=== PATIENT | male | born 1930 | race Caucasian/White ===

== ENCOUNTER 2017-09-10 07:08 | Inpatient (IN) | payer MEDICARE ==
[2017-09-10] MEDS ORDERED: Senna TAB PO PRN (12:06)
[2017-09-10] MEDS ORDERED: Acetaminophen TAB* 325 MG PO PRN (12:06)
[2017-09-10] MEDS ORDERED: Magnesium Hydroxide LIQ* 30 ML UDC PO PRN (12:06)
[2017-09-10] MEDS: Atorvastatin* 40 MG TAB PO SCH (16:44)
[2017-09-10] MEDS: CMC Dabigatran CAP(NF) 150 MG CAP PO SCH (20:45)
[2017-09-10] MEDS: Docusate CAP* 100 MG PO SCH (20:45)
--- NOTE | 2017-09-10 23:14 | HP ---
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 HISTORY OF PRESENT ILLNESS: Deven Koehler is an 87-year-old male. He has a medical history significant for coronary artery disease. He had a coronary artery bypass graft done in 1996 and then had several stents placed in 2015. He has known atrial fibrillation and was on Pradaxa prior to admission. 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 The patient had a watchman device placed on 07/29/17 because of difficulty maintaining his INR. He also had a left atrial appendage. The patient presented acutely to the emergency room at [facility] on 09/05/17. He had difficulty speaking. The patient was evaluated in the emergency room. The patient had an MRI/MRA ordered. It showed patchy foci of acute ischemia primarily confined to the white matter in the left posterior middle cerebral artery distribution superimposed on extensive chronic white matter disease. His MRA of the brain did not show any abnormalities. The patient had duplex imaging of the bilateral carotid arteries done. The right carotid showed 0% to 49% stenosis. The left carotid artery indicated 50% to 69% stenosis with moderate calcific plaque with shadowing visualized at the bulb and proximal internal carotid region. He was felt to have high-grade stenosis at the left internal carotid artery at the bulb. The patient had been on Effient prior to admission. The Effient was stopped in favor of aspirin. He was started on Lipitor 40 mg daily. He had been intolerant of Zocor in the past. He was seen by Vascular Surgery, who evaluated the patient and are planning a surgical intervention 2 to 3 weeks after discharge. He was also in atrial fibrillation while at [facility]. He was maintained on Pradaxa. Because Effient was contraindicated as mentioned, he was switched to a baby aspirin. He was not on beta blockers due to a history of bradycardia. His CLL was under observation, but given his lack of anemia or thrombocytopenia it was just observed. The patient was felt to have physical therapy, occupational therapy and speech therapy needs. He is now being admitted for inpatient rehab so that he might return to independent living. PAST MEDICAL HISTORY: As noted above. 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 He underwent Rituxan therapy for that. He has had malignant melanoma of the skin in the left upper chin. He has also had squamous cell skin cancer as well. The patient has a known cardiomyopathy. MEDICATIONS: Chronic medications include: 1. Pradaxa. 2. Baby aspirin. 3. He is on Lipitor. 4. Diovan. ALLERGIES: The patient got a rash from PLAVIX. He did not tolerate ZOCOR in the past and got significant weakness. He is on Lipitor at the present time. He also got a cough from CECILLE INHIBITORS. SOCIAL HISTORY: He is a nonsmoker, nondrinker. He lives with his . They live in a [facility] in [place], [place]. REVIEW OF SYSTEMS: The patient reports no current shortness of breath or chest pain. PHYSICAL EXAMINATION VITAL SIGNS: The patient's temperature is 98.3, blood pressure is 120/61, pulse is 70 and regular, respirations 16. HEENT: Extraocular movements are intact. Tongue is midline. NECK: Supple. LUNGS: Sounds clear to auscultation bilaterally. HEART: Sounds were irregular. S1 and S2 were audible. ABDOMEN: Soft and nontender. EXTREMITIES: Showed largely normal muscle bulk and tone. NEUROLOGIC: The patient had a significant expressive aphasia. Muscle strength was about 4+/5 on the right, on right leg was close to normal, his left side was 5/5. FUNCTIONAL EXAM: He transfers with contact guard assistance. 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 PLAN: Our plan is to integrate him into a comprehensive and therapeutic rehab program. We will have the following goals: 1. Physical Therapy will work with the patient, they are going to work on functional transfer training and ambulation training with a walker. 2. Occupational Therapy will see the patient, work on his activities of daily living including toileting and toilet transfers. 3. Speech Therapy will work with the patient, work on his expressive aphasia, and help him communicate his basic wants and needs. 4. He is on Pradaxa for atrial fibrillation, this will serve for DVT prophylaxis as well. 5. For atrial fibrillation, continue Pradaxa. As mentioned, he could not tolerate beta graeme because of bradycardia. 6. We will continue Lipitor for now, although he had trouble with this in the past. We will watch him closely. 7. Adequate analgesia. 8. SSRIs including Prozac is indicated. 9. business services intern will be closely involved to make sure that any services and equipment that the patient requires are in place prior to discharge. 10. Family training as appropriate. 11. Advanced directives: The patient is a full code. 12. Home with appropriate services. ESTIMATED LENGTH OF STAY: Ten days. [id number]/CPS #: [id number] JERAD
[2017-09-11 06:53] LABS: Hematocrit 34 % (42-52); Hemoglobin 11.7 g/dl (14.0-18.0); Mean Corpuscular HGB Conc 34 g/dl (31-36); Mean Corpuscular Hemoglobin 30 pg (27-31); Mean Corpuscular Volume 87 fL (80-94); Mean Platelet Volume 7.5 um3 (7.4-10.4); Platelet Count 124 10^3/ul (150-450); Red Cell Distribution Width 15 % (10.5-15)
[2017-09-11 07:00] LABS: ABS Basophils 0.1 10^3/ul (0-0.2); ABS Eosinophils 0.5 10^3/ul (0-0.6); ABS Lymphocytes 9.9 10^3/ul (1.0-4.8); ABS Monocytes 0.6 10^3/ul (0-0.8); ABS Neutrophils 2.9 10^3/ul (1.5-7.7)
[2017-09-11 07:23] LABS: ABS Nucleated RBC 0 10^3/ul; Eosinophil % 3.6 % (0-6); Lymphocyte % 70.7 % (25-47); Nucleated Red Blood Cells % 0.1
[2017-09-11] MEDS: Docusate CAP* 100 MG PO SCH ×2 (09:09→20:29)
[2017-09-11] MEDS: Aspirin 81 mg CHEW TAB* 81 MG TAB.CHEW PO SCH (09:10)
[2017-09-11] MEDS: Valsartan TAB* 40 MG PO SCH (09:10)
[2017-09-11] MEDS: CMC:Dabigatran CAP(NF) 150 MG CAP PO SCH ×2 (09:21→20:28)
[2017-09-11] MEDS: Atorvastatin* 40 MG TAB PO SCH (17:33)
--- NOTE | 2017-09-11 23:13 | PN ---
Progress Note Date of Service: 09/11/17 Note: ROBBIE GRAHAM was visited. Therapy notes read and reviewed. Remains aphasic, expressive>receptive. Was seen ambulating with PT, doing fairly well Current Medications: Active Medications Generic Name Dose Route Start Last Admin Trade Name Freq PRN Reason Stop Dose Admin Acetaminophen 650 mg 09/10/17 12:06 Tylenol Tab* PO Q6H PRN FEVER/PAIN Aspirin 81 mg 09/11/17 09:00 09/11/17 09:10 Aspirin 81 Mg Chew Tab* PO 81 mg DAILY TAYLOR Administration Atorvastatin Calcium 40 mg 09/10/17 17:00 09/11/17 17:33 Lipitor* PO 40 mg 1700 TAYLOR Administration Dabigatran 150 mg 09/11/17 09:00 09/11/17 20:28 Pradaxa Cap(Nf) PO 150 mg BID TAYLOR Administration Docusate Sodium 100 mg 09/10/17 21:00 09/11/17 20:29 Colace Cap* PO 100 mg BID TAYLOR Administration Magnesium Hydroxide 30 ml 09/10/17 12:06 Milk Of Magnesia Liq* PO Q6H PRN CONSTIPATION Senna 2 tab 09/10/17 12:06 Senokot Tab* PO BEDTIME PRN CONSTIPATION Valsartan 40 mg 09/11/17 09:00 09/11/17 09:10 Diovan Tab* PO 40 mg DAILY TAYLOR Administration Vital Signs: Vital Signs Temp Pulse Resp BP Pulse Ox 97.4 F 55 18 106/48 90 09/11/17 15:35 09/11/17 15:35 09/11/17 19:27 09/11/17 15:35 09/11/17 19:27 Lab Results: Laboratory Results - last 24 hr 09/11/17 09/11/17 06:39 06:39 WBC 14.0 H RBC 3.90 L Hgb 11.7 L Hct 34 L MCV 87 MCH 30 MCHC 34 RDW 15 Plt Count 124 L MPV 7.5 Neut % (Auto) 21.1 L Lymph % (Auto) 70.7 H Bullitt % (Auto) 4.1 Eos % (Auto) 3.6 Baso % (Auto) 0.5 Absolute Neuts (auto) 2.9 Absolute Lymphs (auto) 9.9 H Absolute Monos (auto) 0.6 Absolute Eos (auto) 0.5 Absolute Basos (auto) 0.1 Absolute Nucleated RBC 0 Nucleated RBC % 0.1 Hem Pathologist Commnt Sodium 132 L Potassium 4.7 Chloride 101 Carbon Dioxide 29 Anion Gap 2 BUN 23 Creatinine 0.92 Est GFR ( Amer) 100.3 Est GFR (Non-Af Amer) 78.0 BUN/Creatinine Ratio 25.0 H Glucose 96 Calcium 8.9 Total Bilirubin 0.70 AST 19 ALT 13 Alkaline Phosphatase 64 Total Protein 5.4 L Albumin 3.8 Globulin 1.6 L Albumin/Globulin Ratio 2.4 Exam: HEENT: Face looks symmetric, some right facial weakness LUNGS: clear HEART: irreg rhythm ABDOMEN: Soft NEUROLOGIC: aphasia. Right arm 4+/5 Assessment/Plan: 1. Left CVA with aphasia and right sided weakness: PT/OT/TILE MOLDER HAND. 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 Consider Prozac. May need CEA 2. CLL: Monitor 3. Atrial Fibrillation: Pradaxa. rate controlled 4. DVT Prophylaxis: on Pradaxa 5. CAD: Lipitor/ASA/Pradaxa 6. Cardiomyopathy: can't tolerate beta blockers or CECILLE inhibitors. Continue Yuliana 09/11/17 23:10
[2017-09-12] MEDS: CMC Dabigatran CAP(NF) 150 MG CAP PO SCH (00:35)
[2017-09-12] MEDS: CMC:Dabigatran CAP(NF) 150 MG CAP PO SCH ×2 (08:50→21:16)
[2017-09-12] MEDS: Docusate CAP* 100 MG PO SCH ×2 (08:50→21:16)
[2017-09-12] MEDS: Aspirin 81 mg CHEW TAB* 81 MG TAB.CHEW PO SCH (08:50)
[2017-09-12] MEDS: Valsartan TAB* 40 MG PO SCH (08:52)
--- NOTE | 2017-09-12 16:23 | PN ---
Progress Note Date of Service: 09/12/17 Note: ROBBIE GRAHAM was visited. Therapy notes read and reviewed. Will start Prozac for aphasia. He seems pretty good otherwise. Still with paraphasic errors Current Medications: Active Medications Generic Name Dose Route Start Last Admin Trade Name Freq PRN Reason Stop Dose Admin Acetaminophen 650 mg 09/10/17 12:06 Tylenol Tab* PO Q6H PRN FEVER/PAIN Aspirin 81 mg 09/11/17 09:00 09/12/17 08:50 Aspirin 81 Mg Chew Tab* PO 81 mg DAILY TAYLOR Administration Atorvastatin Calcium 40 mg 09/10/17 17:00 09/11/17 17:33 Lipitor* PO 40 mg 1700 TAYLOR Administration Dabigatran 150 mg 09/11/17 09:00 09/12/17 08:50 Pradaxa Cap(Nf) PO 150 mg BID TAYLOR Administration Docusate Sodium 100 mg 09/10/17 21:00 09/12/17 08:50 Colace Cap* PO 100 mg BID TAYLOR Administration Fluoxetine HCl 10 mg 09/13/17 09:00 Prozac Cap* PO DAILY [facility] Magnesium Hydroxide 30 ml 09/10/17 12:06 Milk Of Magnesia Liq* PO Q6H PRN CONSTIPATION Senna 2 tab 09/10/17 12:06 Senokot Tab* PO BEDTIME PRN CONSTIPATION Valsartan 40 mg 09/11/17 09:00 09/12/17 08:52 Diovan Tab* PO 40 mg DAILY TAYLOR Administration Vital Signs: Vital Signs Temp Pulse Resp BP Pulse Ox 98.3 F 45 16 112/47 99 09/12/17 05:36 09/12/17 05:36 09/12/17 05:36 09/12/17 05:36 09/12/17 05:36 Exam: HEENT: Face asymmetric, some right facial weakness LUNGS: clear HEART: irreg rhythm ABDOMEN: Soft NEUROLOGIC: aphasia. Right arm 4+/5 Assessment/Plan: 1. Left CVA with aphasia and right sided weakness: PT/OT/RETAIL GROCER. 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 Start Prozac. May need CEA 2. CLL: Monitor 3. Atrial Fibrillation: Pradaxa. rate controlled 4. DVT Prophylaxis: on Pradaxa 5. CAD: Lipitor/ASA/Pradaxa 6. Cardiomyopathy: can't tolerate beta blockers or CECILLE inhibitors. Continue Diovan 09/12/17 16:23
[2017-09-12] MEDS: Atorvastatin* 40 MG TAB PO SCH (16:59)
[2017-09-13] MEDS: CMC:Dabigatran CAP(NF) 150 MG CAP PO SCH ×2 (09:47→21:31)
[2017-09-13] MEDS: Docusate CAP* 100 MG PO SCH ×2 (09:47→19:12)
[2017-09-13] MEDS: Aspirin 81 mg CHEW TAB* 81 MG TAB.CHEW PO SCH (09:47)
[2017-09-13] MEDS: FLUoxetine CAP* 10 MG PO SCH (09:47)
[2017-09-13] MEDS: Valsartan TAB* 40 MG PO SCH (09:47)
--- NOTE | 2017-09-13 12:45 | PMRUTEAM ---
PMRU: Team Meeting Current Status: Nursing: Current Status Skin Deviations [None] Other Skin Deviation Description [ none None] Physical Therapy: Current Status Bed Mobility Assistance Independent Transfer Moblility Assistance Supervision,Contact Guard Assist Transfer/Bed Mobility None Recommended Devices Ambulation Assistance Supervision,Contact Guard Assist Ambulation Assistive Devices None Number of Feet Patient 500' Ambulated Stairs Assistance Supervision,Contact Guard Assist Stairs Recommended Devices Two Rails Number of Stairs 20 step over step up and step at a time down. Occupational Therapy: Current Status Upper Body Dressing Supervision Lower Body Dressing Min Assist Bathing Min Assist Toileting Contact Guard Assist Toilet Transfer Supervision Shower Transfer Contact Guard Assist Eating Independent Rec Therapy: Current Status Summary of Assessment and Pt. was open to conversation - pleasant and Clinical Impression cooperative. Pt. had a difficult time communicating some of his interests, pt.'s provided assistance with sharing information about his hobbies and involvement. Pt. was open to continued leisure visits. Treatment Goals Pt. will engage in leisure activities while on the unit. Treatment Plan Provide RT services and encourage involvement. Social Work: Current Status Discharge Plan return home with family and continued therapy as needed Potential for Family Training pt's is involved and attentive Anticipated Discharge Home Destination Discharge With family support and additional therapy as needed Speech: Current Status Assessment Patient is progressing as expected Goals: Physical Therapy: Initial Goals Bed Mobility Assistance Independent Transfer Mobility Assistance Independent Transfer/Bed Mobility None Recommended Devices Ambulation Independent Ambulation Recommended Devices None Ambulation Distance 300 Stairs Assistance Independent Stair Recommended Devices None Number of Stairs 10 Physical Therapy: Updated Goals Transfer/Bed Mobility None Recommended Devices Occupational Therapy: Initial Goals Goals to be Completed in (Days 7-10 ) Upper Body Bathing Routine Modified Independent with Lower Body Bathing Routine Modified Independent with Upper Body Dressing Routine Modified Independent with Lower Body Dressing Routine Modified Independent with Toilet Hygeine and Clothing Modified Independent with Management Routine Toilet Transfer Routine Modified Independent with Step-In Shower Transfer Supervision/Set Up Routine Functional Transfers for ADL Modified Independent with Grooming Routine Independent Feeding Routine Independent Speech: Goals Speech Goal 1 Comprehension Goal 1 Comments Long-Term Goals: 1) Patient will follow 2-step verbal directions, with greater than 90% accuracy, I'ly. 2) Patient will identify spatial concepts, body parts, familiar objects and pictures, with greater than 90% accuracy, I'ly. 3) Patient will read numbers and functional words with greater than 90% accuracy, I'ly Short-Term Goals: 1) Patient will follow simple 1-step verbal directions, with 75% accuracy, given maximal cueing. Status: Progressing slowly as expected. Directions: For directions to raise hands and role-play functional activities related to picture stimuli, given direct models and [id number] cueing, patient performe dless meghan 25% of directions, and expressed confusion about what was expected. STAFF M[employer] OFFICER modified activity to avoid action gestures except with functional objects in hand. 2) Patient will identify spatial concepts, body parts, familiar objects and pictures, with 75% accuracy, given maximal cueing. Status: Progressing slowly as expected. Picture ID: After presentation of 4 familiar pictures, instruction in naming to direct models, and spaced retrieval, patient pointed to named pictures with 70% accuracy. 3) Patient will read numerals and letters with 75% accuracy, given maximal cueing. Status: Progressing slowly as expected. Time: Given visual presentation of a clock face telling hours in sequence of every hours, alternate even hours, alternate odd hours, then cardinal hours 08-13-12, patient identified times with 70% accuracy given modertae cueing, and 90% accuracy given maximum cueing. Speech Goal 2 Expression Speech Goal 2 Comments Long-Term Goals: 1) Patient will verbally answer functional questions and express medical and social narratives with greater than 90% accuracy, I'ly 2) Patient will name spatial concepts, body parts, familiar objects and pictures, with 90% accuracy, I'ly. Picture Naming: Given presentation of 4 familiar pictures, instruction in identification and naming to direct models, and spaced retrieval, patient named pictures with less than 25% accuracy I'ly. STAFF [employer] OFFICER modified activity with indirect prompts to look and listen, and patient look up at therapist' s face and repeated direct models with 95% accuracy. Time: Given visual presentation of a clock face telling hours in sequence of every hours, alternate even hours, alternate odd hours, then cardinal hours 3--12, patient named times with 70% accuracy given moderatae cueing, and 95% accuracy given maximum cueing. 3) Patient will write numbers and functional words with greater than 90% accuracy, I'ly For sinple puzzle game, patient i'ly marked Xs 6/7 times, and ) once. Short-Term Goals: 1) Patient will name spatial concepts, body parts, familiar objects and pictures, with 50% accuracy, given maximal cueing. Patient named named choice of 2 pictures in random order, given direct models to imitate immediately or after brief delay. After delay of 10 seconds or more, patient required new direct model for each repetition. 2) Patient will write numerals, letters and his name with 75% accuracy, given maximal cueing. Given direct model, patient copied his name accurately. 3) Patient will use conversational repair strategies to find words by asking for help, hinting, and repeating target words in meaningfu sentences, with 70% accuracy, given maximal cueing . Status: Progressing slowly as expected. Speech Goal 3 Problem Solving Speech Goal 3 Evaluation 2 Status Speech Goal 3 Comments Long-Term Goal: Patient will solve moderately complex funcitonal problems (sequencing, calculating, safety) with 90% accuracy given minimal cueing. Short-Term Goal: Patient will solve simple functoonal problems wth 90% accuracy given minimal cueing. Status: Progressing as expected. For 2 sets of 3-4 sequencing picutre cards, patent arranged cards in sequence with 70% accuracy. Patient expressed ambivalence about several plausible sequences, but did not appear to comprehend or adopt recommended improved sequences . Social Work: Goals Discharge Plan return home with family and continued therapy as needed Potential for Family Training pt's is involved and attentive Anticipated Discharge Home Destination Discharge With family support and additional therapy as needed Care Plan: Care Plan ADL's - Improve/Maintain Start: 09/10/17 16:19 Freq: DAILY Status: Active Target: Protocol: Activity Type Activity Date Activity User E-Sign Co-Sign Detail Recorded Client Recorded Date Recorded By Document 09/13/17 11:54 [id number] 09/13/17 11:54 [id number] 09/13/17 11:54 PMRU Outcome: ADL's/ADL Transfers Orders/Interventions Occupational Therapy Evaluation & Treatment Communication Tool in Patient Room Device Yes Address Deficits Secondary To: CVA Patient to receive OT 5x/wk for 60-120 Therex min/day Self Care Management Group Therapy Neuromuscular ReEducation UE/LE ADL's with Assist Yes: Matthew ADL Transfers with Assist Yes: Matthew, shower transfer S Toileting: Transfers,Clothing Management Yes: Matthew ,Hygeine w/Assist Light Kitchen/Laundry w/Assist No Progression Toward Outcome/Goals Progressing Outcome/Goals Met Pt participated well in treatment session, slightly frustrated when asked to shower during ADL treatment, however participated well. Pt avoids using RUE to complete functional tasks whenever able 2* decreased FMC and requires significant cueing to utilize RUE as much as possible to increase functional use. Cardiovascular- Improve/Maintain Start: 09/10/17 11:29 Freq: DAILY Status: Active Target: Protocol: Activity Type Activity Date Activity User E-Sign Co-Sign Detail Recorded Client Recorded Date Recorded By Document 09/13/17 01:02 [id number] 09/13/17 01:03 [id number] 09/13/17 01:02 PMRU Outcome: Cardiovascular Vital Signs q Shift for 48hrs Then BID Yes Daily Weight Ordered No Current Cardiovascular Outcome/Goal Maintain/ Achieve Baseline HR, BP , Perfusion Progression Toward Outcome/Goal Progressing Communication-Improve/Maintain Start: 09/10/17 11:29 Freq: DAILY Status: Active Target: Protocol: Activity Type Activity Date Activity User E-Sign Co-Sign Detail Recorded Client Recorded Date Recorded By Document 09/13/17 01:00 [id number] 09/13/17 01:03 [id number] 09/13/17 01:00 PMRU Outcome: Communication/Cognitive Status Outcome/Goals Makes Needs Known Effectively Progression Toward Outcomes/Goals Progressing Outcome/Goals Met Makes Needs Known Effectively Coping/Psych-Improve/Maintain Start: 09/10/17 11:29 Freq: DAILY Status: Active Target: Protocol: Activity Type Activity Date Activity User E-Sign Co-Sign Detail Recorded Client Recorded Date Recorded By Document 09/13/17 01:02 [id number] 09/13/17 01:03 [id number] 09/13/17 01:02 PMRU Outcome: Coping/Psychosocial Coping Outcome/Goals Verbalization of Acceptance of Rehab Admit Verbalization of Sense of Control Over Health Status Utilization of Appropriate Problem Solving Techniques Willingness to Participate in Treatment Plan and Basic Needs Absence of Destructive Behavior to Self/Others Psychosocial Outcome/Goals Maintain/ Improve Emotional Health Demonstrates Knowledge of Healthy Coping Mechanisms Available Cooperate/ Participate in Plan Progression Toward Outcome/Goals - Progressing Coping Progression Toward Outcome/Goals - Progressing Psychosocial DVT Prophylaxis- Improve/Maintain Start: 09/10/17 11:29 Freq: DAILY Status: Active Target: Protocol: Activity Type Activity Date Activity User E-Sign Co-Sign Detail Recorded Client Recorded Date Recorded By Document 09/13/17 01:02 [id number] 09/13/17 01:03 [id number] 09/13/17 01:02 PMRU Outcome: DVT Prophylaxis Outcome/Goals Remains Free of DVT Free of complications from current DVT Complies with DVT Prophylaxis /Treatment TEDS Stockings on Every AM, Off at HS Progression Toward Outcome/Goals Progressing Discharge Planning - Improve/Maintain Start: 09/10/17 11:29 Freq: DAILY Status: Active Target: Protocol: Activity Type Activity Date Activity User E-Sign Co-Sign Detail Recorded Client Recorded Date Recorded By Document 09/13/17 01:00 [id number] 09/13/17 01:03 [id number] 09/13/17 01:00 PMRU Outcome: Discharge Planning Outcome/Goals Demonstrates Understanding of Discharge Plan Progression Toward Outcome/Goals Progressing Mobility- Improve/Maintain Start: 09/10/17 11:29 Freq: DAILY Status: Active Target: Protocol: Activity Type Activity Date Activity User E-Sign Co-Sign Detail Recorded Client Recorded Date Recorded By Document 09/12/17 12:19 [id number] 09/12/17 12:19 [id number] 09/12/17 12:19 PMRU Outcome: Mobility Physical Therapy Evaluation and Yes Treatment Activity OOB with Assistance Yes WBAT Yes Device Yes Assistance Yes Patient to be seen 5x/wk for 60-120 min/ Therex day for: Mobility Training Gait Training W/C Mobility Balance Outcome/Goals Maintain/ Achieve Baseline Mobility Status Improve Mobility Status Demonstrates Proper Use of Assistive Devices Free from Complications of Immobility Progression Toward Outcome/Goals Progressing Bed Mobility Yes: independent Transfers Yes: independent Gait x ft Yes: independent 300 ' without assistive device Up/Down Stairs Yes: independent up/ down 10 stairs without rails. Neurological- Improve/Maintain Start: 09/10/17 11:29 Freq: DAILY Status: Active Target: Protocol: Activity Type Activity Date Activity User E-Sign Co-Sign Detail Recorded Client Recorded Date Recorded By Document 09/13/17 01:02 [id number] 09/13/17 01:03 [id number] 09/13/17 01:02 PMRU Outcome: Neurological Weakness/Aphasia Weakness Aphasia Outcome/Goals Maintain/ Achieve Baseline Neurological Status Improve Neurological Status Prevent Avoidable Neurological Decline Maintain/ Improve Strength/ROM Progression Toward Outcome/Goals Progressing Pain/Comfort- Improve/Maintain Start: 09/10/17 11:29 Freq: DAILY Status: Active Target: Protocol: Activity Type Activity Date Activity User E-Sign Co-Sign Detail Recorded Client Recorded Date Recorded By Document 09/13/17 01:02 [id number] 09/13/17 01:03 [id number] 09/13/17 01:02 PMRU Outcome: Pain/Comfort Outcome/Goals Demonstrates Knowledge and Use of Available Comfort Measures Achieves Acceptable Comfort/Pain Level as Determined by Patient/Condit Maintain Comfort Level Allowing Patient to Fully Participate in Rehab Progression Toward Outcome/Goals Progressing Outcome/Goals Met Comment pt resting Safety- Improve/Maintain Start: 09/10/17 11:29 Freq: DAILY Status: Active Target: Protocol: Activity Type Activity Date Activity User E-Sign Co-Sign Detail Recorded Client Recorded Date Recorded By Document 09/13/17 01:02 [id number] 09/13/17 01:03 [id number] 09/13/17 01:02 PMRU Outcome: Safety Outcome/Goals Remain Free of Injury or Harm Prevent Falls/ Injury Progression Toward Outcome/Goals Progressing Outcome/Goals Met Comment PA in place Skin- Improve/Maintain Start: 09/10/17 11:29 Freq: DAILY Status: Active Target: Protocol: Activity Type Activity Date Activity User E-Sign Co-Sign Detail Recorded Client Recorded Date Recorded By Document 09/13/17 01:02 [id number] 09/13/17 01:03 [id number] 09/13/17 01:02 PMRU Outcome: Skin Skin Risk Level Low Skin Orders Turn/Position q2hr While in Bed Outcome/Goals Maintain/ Improve Skin Intergrity Progression Toward Outcome/Goals Progressing Medicine Note: Length of Stay: 7 days Anticipated Discharge Destination: Home Tentative Discharge Date: 09/20/17 Discharged to: Home
--- NOTE | 2017-09-13 17:10 | PN ---
Progress Note Date of Service: 09/13/17 Note: ROBBIE GRAHAM was visited. Therapy notes read and reviewed. He was discussed in interdisciplinary plan of care rounds. He has made some gains in his language abilities. Started Prozac and tolerated it. Met with family to discuss rationale for Prozac, discussed aphasia Current Medications: Active Medications Generic Name Dose Route Start Last Admin Trade Name Freq PRN Reason Stop Dose Admin Acetaminophen 650 mg 09/10/17 12:06 Tylenol Tab* PO Q6H PRN FEVER/PAIN Aspirin 81 mg 09/11/17 09:00 09/13/17 09:47 Aspirin 81 Mg Chew Tab* PO 81 mg DAILY TAYLOR Administration Atorvastatin Calcium 40 mg 09/10/17 17:00 09/12/17 16:59 Lipitor* PO 40 mg 1700 TAYLOR Administration Dabigatran 150 mg 09/11/17 09:00 09/13/17 09:47 Pradaxa Cap(Nf) PO 150 mg BID TAYLOR Administration Docusate Sodium 100 mg 09/10/17 21:00 09/13/17 09:47 Colace Cap* PO 100 mg BID TAYLOR Administration Fluoxetine HCl 10 mg 09/13/17 09:00 09/13/17 09:47 Prozac Cap* PO 10 mg DAILY TAYLOR Administration Magnesium Hydroxide 30 ml 09/10/17 12:06 Milk Of Magnesia Liq* PO Q6H PRN CONSTIPATION Senna 2 tab 09/10/17 12:06 Senokot Tab* PO BEDTIME PRN CONSTIPATION Valsartan 40 mg 09/11/17 09:00 09/13/17 09:47 Diovan Tab* PO 40 mg DAILY TAYLOR Administration Vital Signs: Vital Signs Temp Pulse Resp BP Pulse Ox 97.5 F 47 16 129/60 100 09/13/17 16:22 09/13/17 16:22 09/13/17 16:22 09/13/17 16:22 09/13/17 16:22 Exam: HEENT: Face asymmetric, some right facial weakness LUNGS: clear HEART: irreg rhythm ABDOMEN: Soft NEUROLOGIC: aphasia, with both receptive and expressive elements. Right arm 4+/5 Assessment/Plan: 1. 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 Start Prozac. May need CEA 2. CLL: Monitor 3. Atrial Fibrillation: Pradaxa. rate controlled 4. DVT Prophylaxis: on Pradaxa 5. CAD: Lipitor/ASA/Pradaxa 6. Cardiomyopathy: can't tolerate beta blockers or CECILLE inhibitors. Continue Yuliana 09/13/17 17:11
[2017-09-13] MEDS: Atorvastatin* 40 MG TAB PO SCH (17:12)
[2017-09-14] MEDS: Docusate CAP* 100 MG PO SCH ×2 (07:34→21:22)
[2017-09-14] MEDS: Valsartan TAB* 40 MG PO SCH (08:45)
[2017-09-14] MEDS: CMC:Dabigatran CAP(NF) 150 MG CAP PO SCH ×2 (08:45→21:22)
[2017-09-14] MEDS: Aspirin 81 mg CHEW TAB* 81 MG TAB.CHEW PO SCH (08:45)
[2017-09-14] MEDS: FLUoxetine CAP* 10 MG PO SCH (08:45)
--- NOTE | 2017-09-14 15:53 | PN ---
Progress Note Date of Service: 09/14/17 Note: ROBBIE GRAHAM was visited. Nursing and therapy notes read and reviewed. He remains aphasic, receptive and expressive. Tolerating Prozac Current Medications: Active Medications Generic Name Dose Route Start Last Admin Trade Name Freq PRN Reason Stop Dose Admin Acetaminophen 650 mg 09/10/17 12:06 Tylenol Tab* PO Q6H PRN FEVER/PAIN Aspirin 81 mg 09/11/17 09:00 09/14/17 08:45 Aspirin 81 Mg Chew Tab* PO 81 mg DAILY TAYLOR Administration Atorvastatin Calcium 40 mg 09/10/17 17:00 09/13/17 17:12 Lipitor* PO 40 mg 1700 TAYLOR Administration Dabigatran 150 mg 09/11/17 09:00 09/14/17 08:45 Pradaxa Cap(Nf) PO 150 mg BID TAYLOR Administration Docusate Sodium 100 mg 09/10/17 21:00 09/14/17 07:34 Colace Cap* PO Not Given BID [facility] Fluoxetine HCl 10 mg 09/13/17 09:00 09/14/17 08:45 Prozac Cap* PO 10 mg DAILY TAYLOR Administration Magnesium Hydroxide 30 ml 09/10/17 12:06 Milk Of Magnesia Liq* PO Q6H PRN CONSTIPATION Senna 2 tab 09/10/17 12:06 Senokot Tab* PO BEDTIME PRN CONSTIPATION Valsartan 40 mg 09/11/17 09:00 09/14/17 08:45 Diovan Tab* PO 40 mg DAILY TAYLOR Administration Vital Signs: Vital Signs Temp Pulse Resp BP Pulse Ox 98.3 F 44 16 126/49 96 09/14/17 06:36 09/14/17 06:36 09/14/17 08:00 09/14/17 06:36 09/14/17 08:00 Exam: HEENT: Face asymmetric, some right facial weakness LUNGS: clear HEART: irreg rhythm ABDOMEN: Soft NEUROLOGIC: aphasia, with both receptive and expressive elements. Right arm 4+/5 Assessment/Plan: 1. 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 Start Prozac. May need CEA 2. CLL: Monitor 3. Atrial Fibrillation: Pradaxa. rate controlled 4. DVT Prophylaxis: on Pradaxa 5. CAD: Lipitor/ASA/Pradaxa 6. Cardiomyopathy: can't tolerate beta blockers or CECILLE inhibitors. Continue Yuliana 09/14/17 15:53
[2017-09-14] MEDS: Atorvastatin* 40 MG TAB PO SCH (17:25)
[2017-09-15] MEDS: CMC:Dabigatran CAP(NF) 150 MG CAP PO SCH ×2 (07:10→21:17)
[2017-09-15] MEDS: Docusate CAP* 100 MG PO SCH ×2 (07:10→21:17)
[2017-09-15] MEDS: FLUoxetine CAP* 10 MG PO SCH (07:10)
[2017-09-15] MEDS: Aspirin 81 mg CHEW TAB* 81 MG TAB.CHEW PO SCH (07:10)
[2017-09-15] MEDS: Valsartan TAB* 40 MG PO SCH (07:10)
--- NOTE | 2017-09-15 12:54 | PN ---
Progress Note Date of Service: 09/15/17 Note: ROBBIE GRAHAM was visited. Nursing notes read and reviewed. Had an episode this am where he thought wall was blurry and maybe moving. It passed. Vitals were stable Current Medications: Active Medications Generic Name Dose Route Start Last Admin Trade Name Freq PRN Reason Stop Dose Admin Acetaminophen 650 mg 09/10/17 12:06 Tylenol Tab* PO Q6H PRN FEVER/PAIN Aspirin 81 mg 09/11/17 09:00 09/15/17 07:10 Aspirin 81 Mg Chew Tab* PO 81 mg DAILY TAYLOR Administration Atorvastatin Calcium 40 mg 09/10/17 17:00 09/14/17 17:25 Lipitor* PO 40 mg 1700 TAYLOR Administration Dabigatran 150 mg 09/11/17 09:00 09/15/17 07:10 Pradaxa Cap(Nf) PO 150 mg BID TAYLOR Administration Docusate Sodium 100 mg 09/10/17 21:00 09/15/17 07:10 Colace Cap* PO 100 mg BID TAYLOR Administration Fluoxetine HCl 10 mg 09/13/17 09:00 09/15/17 07:10 Prozac Cap* PO 10 mg DAILY TAYLOR Administration Magnesium Hydroxide 30 ml 09/10/17 12:06 Milk Of Magnesia Liq* PO Q6H PRN CONSTIPATION Senna 2 tab 09/10/17 12:06 Senokot Tab* PO BEDTIME PRN CONSTIPATION Valsartan 40 mg 09/11/17 09:00 09/15/17 07:10 Diovan Tab* PO 40 mg DAILY TAYLOR Administration Vital Signs: Vital Signs Temp Pulse Resp BP Pulse Ox 98.0 F 53 16 125/48 98 09/15/17 06:36 09/15/17 06:36 09/15/17 08:00 09/15/17 06:36 09/15/17 06:38 Exam: HEENT: Face asymmetric, some right facial weakness LUNGS: clear HEART: irreg rhythm ABDOMEN: Soft NEUROLOGIC: aphasia, with both receptive and expressive elements. Right arm 4+/5 Assessment/Plan: 1. 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 Started Prozac. Will see surgeon Saturday about CEA 2. CLL: Monitor 3. Atrial Fibrillation: Pradaxa. rate controlled 4. DVT Prophylaxis: on Pradaxa 5. CAD: Lipitor/ASA/Pradaxa 6. Cardiomyopathy: can't tolerate beta blockers or CECILLE inhibitors. Continue Yuliana 09/15/17 12:54
[2017-09-15] MEDS: Atorvastatin* 40 MG TAB PO SCH (17:03)
[2017-09-16] MEDS: Aspirin 81 mg CHEW TAB* 81 MG TAB.CHEW PO SCH (09:34)
[2017-09-16] MEDS: Valsartan TAB* 40 MG PO SCH (09:35)
[2017-09-16] MEDS: Docusate CAP* 100 MG PO SCH ×2 (09:35→19:58)
[2017-09-16] MEDS: CMC:Dabigatran CAP(NF) 150 MG CAP PO SCH ×2 (09:35→19:58)
[2017-09-16] MEDS: FLUoxetine CAP* 10 MG PO SCH (09:35)
--- NOTE | 2017-09-16 16:11 | PN ---
Progress Note Date of Service: 09/16/17 Note: ROBBIE GRAHAM was visited. Therapy notes read and reviewed. Seems more communicative to me. Able to get point across. Current Medications: Active Medications Generic Name Dose Route Start Last Admin Trade Name Freq PRN Reason Stop Dose Admin Acetaminophen 650 mg 09/10/17 12:06 Tylenol Tab* PO Q6H PRN FEVER/PAIN Aspirin 81 mg 09/11/17 09:00 09/16/17 09:34 Aspirin 81 Mg Chew Tab* PO 81 mg DAILY TAYLOR Administration Atorvastatin Calcium 40 mg 09/10/17 17:00 09/15/17 17:03 Lipitor* PO 40 mg 1700 TAYLOR Administration Dabigatran 150 mg 09/11/17 09:00 09/16/17 09:35 Pradaxa Cap(Nf) PO 150 mg BID TAYLOR Administration Docusate Sodium 100 mg 09/10/17 21:00 09/16/17 09:35 Colace Cap* PO 100 mg BID TAYLOR Administration Fluoxetine HCl 10 mg 09/13/17 09:00 09/16/17 09:35 Prozac Cap* PO 10 mg DAILY TAYLOR Administration Magnesium Hydroxide 30 ml 09/10/17 12:06 Milk Of Magnesia Liq* PO Q6H PRN CONSTIPATION Senna 2 tab 09/10/17 12:06 Senokot Tab* PO BEDTIME PRN CONSTIPATION Valsartan 40 mg 09/11/17 09:00 09/16/17 09:35 Diovan Tab* PO 40 mg DAILY TAYLOR Administration Vital Signs: Vital Signs Temp Pulse Resp BP Pulse Ox 97.7 F 83 18 129/57 100 09/16/17 05:39 09/16/17 05:39 09/16/17 05:39 09/16/17 05:39 09/16/17 05:39 Exam: HEENT: Face asymmetric, some right facial weakness LUNGS: clear HEART: irreg rhythm ABDOMEN: Soft NEUROLOGIC: aphasia, with both receptive and expressive elements. Right arm 4+/5 Assessment/Plan: 1. 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 Started Prozac. Will see surgeon Saturday about CEA 2. CLL: Monitor 3. Atrial Fibrillation: Pradaxa. rate controlled 4. DVT Prophylaxis: on Pradaxa 5. CAD: Lipitor/ASA/Pradaxa 6. Cardiomyopathy: can't tolerate beta blockers or CECILLE inhibitors. Continue Yuliana 09/16/17 16:11
[2017-09-16] MEDS: Atorvastatin* 40 MG TAB PO SCH (17:14)
[2017-09-17] MEDS: Valsartan TAB* 40 MG PO SCH (08:11)
[2017-09-17] MEDS: Aspirin 81 mg CHEW TAB* 81 MG TAB.CHEW PO SCH (08:11)
[2017-09-17] MEDS: CMC:Dabigatran CAP(NF) 150 MG CAP PO SCH ×2 (08:11→19:56)
[2017-09-17] MEDS: FLUoxetine CAP* 10 MG PO SCH (08:11)
[2017-09-17] MEDS: Docusate CAP* 100 MG PO SCH ×2 (08:11→19:45)
--- NOTE | 2017-09-17 12:41 | PMRUTEAM ---
PMRU: Team Meeting Current Status: Nursing: Current Status Skin Deviations [None] Other Skin Deviation Description [ - None] Physical Therapy: Current Status Bed Mobility Assistance Supervision Transfer Moblility Assistance Supervision,Contact Guard Assist Transfer/Bed Mobility None Recommended Devices Transfer Mobility Comment Pt. is able to perform a SPT without an assistive device Ambulation Assistance Supervision,Contact Guard Assist Ambulation Assistive Devices Rolling Walker Number of Feet Patient 500' Ambulated Ambulation Comment Pt. presents an unsteady gait and drifts to left at times, self correcting Stairs Assistance Supervision Stairs Recommended Devices Two Rails Number of Stairs 20 step at a time. Occupational Therapy: Current Status Upper Body Dressing Supervision Lower Body Dressing Supervision Bathing Contact Guard Assist Toileting Supervision Toilet Transfer Supervision Shower Transfer Contact Guard Assist Eating Supervision Rec Therapy: Current Status Summary of Assessment and RT assessment complete and pt. is aware of RT Clinical Impression services. Pt. has been open to leisure visits in the afternoons. Treatment Goals Pt. will engage in leisure activities while on the unit. Treatment Plan Provide RT services and encourage involvement. Social Work: Current Status Discharge Plan return home with continued therapy and family support Potential for Family Training pt's is involved and supportive Anticipated Discharge Home Destination Discharge With continued therapy and family support Nutrition: Current Status Monitoring pt w/advanced age, but pt is eating well, adequate weight. No noted dysphagia. CHEMICAL ENGINEERING INTERN following pt for cog/ling deficits. Pt currently taking Lipitor (although note from hx that he has had difficulty with this in the past). He did not recall grapefruit/lipitor interaction so this was reviewed 09/14. Eating 75-100% of heart healthy diet - no new education issues r/t this. Appears to be meeting goals as outined below. Speech: Current Status Assessment Patient is progressing as expected. Speech Current Status Goal 1 3 Speech Goal 2 Current Status 3 Speech Goal 3 Current Status 3 Goals: Physical Therapy: Initial Goals Bed Mobility Assistance Independent Transfer Mobility Assistance Independent Transfer/Bed Mobility None Recommended Devices Ambulation Independent Ambulation Recommended Devices None Ambulation Distance 300 Stairs Assistance Independent Stair Recommended Devices None Number of Stairs 10 Physical Therapy: Updated Goals Bed Mobility Assistance Independent Transfer Mobility Assistance Independent Transfer/Bed Mobility None Recommended Devices Ambulation Assistance Independent Ambulation Assistive Devices None Ambulation Distance (ft) 300 Stairs Assistance Independent Stairs Recommended Devices One Rail,Two Rails Number of Stairs 20 Occupational Therapy: Initial Goals Goals to be Completed in (Days 7-10 ) Upper Body Bathing Routine Modified Independent with Lower Body Bathing Routine Modified Independent with Upper Body Dressing Routine Modified Independent with Lower Body Dressing Routine Modified Independent with Toilet Hygeine and Clothing Modified Independent with Management Routine Toilet Transfer Routine Modified Independent with Step-In Shower Transfer Supervision/Set Up Routine Functional Transfers for ADL Modified Independent with Grooming Routine Independent Feeding Routine Independent Nutrition: Goals Intervention Goals 1. Maintain adequate oral intake to support weight maintenance and maintenance of lean body mass 2. Able to verbalize grapefruit/lipitor interaction eating guidelines Speech: Goals Speech Goal 1 Comprehension Speech Evaluation Status Goal 2 1 Speech Current Status Goal 1 3 Goal 1 Comments Long-Term Goals: 1) Patient will follow 2-step verbal directions, with greater than 90% accuracy, I'ly. 2) Patient will identify spatial concepts, body parts, familiar objects and pictures, with greater than 90% accuracy, I'ly. 3) Patient will read numbers and functional words with greater than 90% accuracy, I'ly Short-Term Goals: 1) Patient will follow simple 1-step verbal directions, with 75% accuracy, given maximal cueing. Status: Progressing slowly as expected. Directions: Pt reqiured moderate verbal cueing and frequent direct modeling to follow 1-step directins. for task related direction such as " show me," patient required minimal cueing to poit with index finger. 2) Patient will identify spatial concepts, body parts, familiar objects and pictures, with 75% accuracy, given maximal cueing. Status: Progressing slowly as expected. Picture ID: After presentation of 4 familiar pictures, instruction in naming to direct models, and spaced retrieval, patient pointed to named pictures with 75% accuracy. 3) Patient will read numerals and letters with 70% accuracy, given maximal cueing. Status: Progressing slowly as expected. Time: Given visual presentation of a clock face telling hours, patient identified clock times with 70% accuracy given moderate cueing, and 75% accuracy given maximum cueing. For labels on 4 previously instructed pictures, patient required verbal models to read/name. For calendar orientation, CHEMICAL ENGINEERING INTERN demonstrated today's date, months 1-4, first and second week of September, and pointed to and named the weekdays. Given maximum verbal cueing and repetition over time, patient did not identify today when named. Speech Goal 2 Expression Speech Goal 2 Evaluation 2 Status Speech Goal 2 Current Status 3 Speech Goal 2 Comments Long-Term Goals: 1) Patient will verbally answer functional questions and express medical and social narratives with greater than 90% accuracy, I'ly. 2) Patient will name spatial concepts, body parts, familiar objects and pictures, with 90% accuracy, I'ly. Picture Naming: Given presentation of 4 familiar pictures, instruction in identification and naming to direct models, and spaced retrieval, patient named pictures with < 50% accuracy I'ly. CHEMICAL ENGINEERING INTERN modified activity with indirect prompts to look and listen, and patient look up at therapist's face and repeated direct models with 95% accuracy. Pt began to perseverate on the word "apple" at end of session. Time: Given visual presentation of a clock face telling hours in sequence of every hours, alternate even hours, alternate odd hours, then cardinal hours 3-6-9-12, patient named times with 80% accuracy given moderate cueing, and 95% accuracy given maximum cueing. 3) Patient will write numbers and functional words with greater than 90% accuracy, I'ly Pt wrote time for clock with 33% accuracy following a model. Short-Term Goals: 1) Patient will name spatial concepts, body parts, familiar objects and pictures, with 50% accuracy, given maximal cueing. Patient named clock times after direct models and brief delays, with frequent perseveration on names of months or weekdays from previous activities. Given maximum verbal and visual cueing, patient pointed to numerals around clock face as expressive strategy with 70% accuracy. 2) Patient will write numerals, letters and his name with 75% accuracy, given maximal cueing. goal not addressed this session. 3) Patient will use conversational repair strategies to find words by asking for help, hinting, and repeating target words in meaningful sentences, with 70% accuracy, given maximal cueing . Status: Progressing slowly as expected. Speech Goal 3 Problem Solving Speech Goal 3 Evaluation 2 Status Speech Goal 3 Current Status 3 Speech Goal 3 Comments Long-Term Goal: Patient will solve moderately complex funcitonal problems (sequencing, calculating, safety) with 90% accuracy given minimal cueing. Short-Term Goal: Patient will solve simple functional problems with 90% accuracy given minimal cueing. Status: Progressing as expected. For 2 sets of 3-4 sequencing picture cards, patient arranged cards in sequence with 75% accuracy following a model. Patient stated he had confusion about sequencing scenarios and couldn't figure out why this was difficult for him. Social Work: Goals Discharge Plan return home with continued therapy and family support Potential for Family Training pt's is involved and supportive Anticipated Discharge Home Destination Discharge With continued therapy and family support Care Plan: Care Plan ADL's - Improve/Maintain Start: 09/10/17 16:19 Freq: [email or web address]@1200 Status: Active Target: Protocol: Activity Type Activity Date Activity User E-Sign Co-Sign Detail Recorded Client Recorded Date Recorded By Document 09/16/17 11:46 [id number] [id number] 09/16/17 11:46 [id number] 09/16/17 11:46 PMRU Outcome: ADL's/ADL Transfers Orders/Interventions Occupational Therapy Evaluation & Treatment Communication Tool in Patient Room Device Yes Address Deficits Secondary To: CVA Patient to receive OT 5x/wk for 60-120 Therex min/day Self Care Management Group Therapy Neuromuscular ReEducation UE/LE ADL's with Assist Yes: Matthew ADL Transfers with Assist Yes: Matthew, shower transfer S Toileting: Transfers,Clothing Management Yes: Matthew ,Hygeine w/Assist Light Kitchen/Laundry w/Assist No Progression Toward Outcome/Goals Progressing Outcome/Goals Met Pt participated fair in OT treatment session, refusing to shower and change clothes, but did complete some dressing with changing shirt and doffing socks/donning shoes as well as hygiene and minimal bathing this date. Cardiovascular- Improve/Maintain Start: 09/10/17 11:29 Freq: DAILY@1200 Status: Active Target: Protocol: Activity Type Activity Date Activity User E-Sign Co-Sign Detail Recorded Client Recorded Date Recorded By Document 09/17/17 01:01 [id number] 09/17/17 01:01 [id number] 09/17/17 01:01 PMRU Outcome: Cardiovascular Vital Signs q Shift for 48hrs Then BID Yes Daily Weight Ordered No Current Cardiovascular Outcome/Goal Maintain/ Achieve Baseline HR, BP , Perfusion Progression Toward Outcome/Goal Progressing Communication-Improve/Maintain Start: 09/10/17 11:29 Freq: DAILY@1200 Status: Active Target: Protocol: Activity Type Activity Date Activity User E-Sign Co-Sign Detail Recorded Client Recorded Date Recorded By Document 09/17/17 10:04 [id number] 09/17/17 10:04 [id number] 09/17/17 10:04 PMRU Outcome: Communication/Cognitive Status Outcome/Goals Makes Needs Known Effectively Other Outcomes/Goals Comprehension Long-Term Goals : 1) Patient will follow 2-step verbal directions, with greater than 90% accuracy, I'ly. 2) Patient will identify spatial concepts, body parts, familiar objects and pictures, with greater than 90 % accuracy, I' ly. 3) Patient will read numbers and functional words with greater than 90 % accuracy, I' ly Short-Term Goals: 1) Patient will follow simple 1-step verbal directions, with 75% accuracy, given maximal cueing . 2) Patient will identify spatial concepts, body parts, familiar objects and pictures, with 75% accuracy, given maximal cueing. 3) Patient will read numerals and letters with 70% accuracy, given maximal cueing . Status: Progressing slowly as expected. Expression Long-Term Goals : 1) Patient will verbally answer functional questions and express medical and social narratives with greater than 90% accuracy, I 'ly. 2) Patient will name spatial concepts, body parts, familiar objects and pictures, with 90% accuracy, I 'ly. 3) Patient will write numbers and functional words with greater than 90 % accuracy, I' ly Short-Term Goals: 1) Patient will name spatial concepts, body parts, familiar objects and pictures, with 50% accuracy, given maximal cueing. 2) Patient will write numerals , letters and his name with 75% accuracy, given maximal cueing. 3) Patient will use conversational repair strategies to find words by asking for help , hinting, and repeating target words in meaningful sentences, with 70% accuracy, given maximal cueing. Status: Progressing slowly as expected. Problem Solving : Long-Term Goal: Patient will solve moderately complex funcitonal problems ( sequencing, calculating, safety) with 90 % accuracy given minimal cueing. Short-Term Goal : Patient will solve simple functional problems with 90% accuracy given minimal cueing. Status: Progressing as expected. Progression Toward Outcomes/Goals Progressing Outcome/Goals Met Makes Needs Known Effectively Coping/Psych-Improve/Maintain Start: 09/10/17 11:29 Freq: DAILY@1200 Status: Active Target: Protocol: Activity Type Activity Date Activity User E-Sign Co-Sign Detail Recorded Client Recorded Date Recorded By Document 09/17/17 01:01 [id number] 09/17/17 01:01 [id number] 09/17/17 01:01 PMRU Outcome: Coping/Psychosocial Coping Outcome/Goals Verbalization of Acceptance of Rehab Admit Verbalization of Sense of Control Over Health Status Utilization of Appropriate Problem Solving Techniques Willingness to Participate in Treatment Plan and Basic Needs Absence of Destructive Behavior to Self/Others Psychosocial Outcome/Goals Maintain/ Improve Emotional Health Demonstrates Knowledge of Healthy Coping Mechanisms Available Cooperate/ Participate in Plan Progression Toward Outcome/Goals - Progressing Coping Progression Toward Outcome/Goals - Progressing Psychosocial DVT Prophylaxis- Improve/Maintain Start: 09/10/17 11:29 Freq: DAILY@1200 Status: Active Target: Protocol: Activity Type Activity Date Activity User E-Sign Co-Sign Detail Recorded Client Recorded Date Recorded By Document 09/17/17 01:01 [id number] 09/17/17 01:01 [id number] 09/17/17 01:01 PMRU Outcome: DVT Prophylaxis Outcome/Goals Remains Free of DVT Free of complications from current DVT Complies with DVT Prophylaxis /Treatment TEDS Stockings on Every AM, Off at HS Progression Toward Outcome/Goals Progressing Discharge Planning - Improve/Maintain Start: 09/10/17 11:29 Freq: DAILY@1200 Status: Active Target: Protocol: Activity Type Activity Date Activity User E-Sign Co-Sign Detail Recorded Client Recorded Date Recorded By Document 09/17/17 01:01 [id number] [id number] 09/17/17 01:01 [id number] 09/17/17 01:01 PMRU Outcome: Discharge Planning Update Patient Family No Outcome/Goals Demonstrates Understanding of Discharge Plan Progression Toward Outcome/Goals Progressing Mobility- Improve/Maintain Start: 09/10/17 11:29 Freq: DAILY@1200 Status: Active Target: Protocol: Activity Type Activity Date Activity User E-Sign Co-Sign Detail Recorded Client Recorded Date Recorded By Document 09/16/17 12:15 [id number] [id number] 09/16/17 12:15 [id number] 09/16/17 12:15 PMRU Outcome: Mobility Physical Therapy Evaluation and Yes Treatment Activity OOB with Assistance Yes WBAT Yes Device Yes Assistance Yes Patient to be seen 5x/wk for 60-120 min/ Therex day for: Mobility Training Gait Training W/C Mobility Balance Outcome/Goals Maintain/ Achieve Baseline Mobility Status Improve Mobility Status Demonstrates Proper Use of Assistive Devices Free from Complications of Immobility Progression Toward Outcome/Goals Progressing Bed Mobility Yes: independent Transfers Yes: independent Gait x ft Yes: independent 300 ' without assistive device Up/Down Stairs Yes: independent up/ down 10 stairs without rails. Neurological- Improve/Maintain Start: 09/10/17 11:29 Freq: DAILY@1200 Status: Active Target: Protocol: Activity Type Activity Date Activity User E-Sign Co-Sign Detail Recorded Client Recorded Date Recorded By Document 09/17/17 01:01 [id number] 09/17/17 01:01 [id number] 09/17/17 01:01 PMRU Outcome: Neurological Weakness/Aphasia Weakness Aphasia Outcome/Goals Maintain/ Achieve Baseline Neurological Status Improve Neurological Status Prevent Avoidable Neurological Decline Maintain/ Improve Strength/ROM Progression Toward Outcome/Goals Progressing Pain/Comfort- Improve/Maintain Start: 09/10/17 11:29 Freq: DAILY@1200 Status: Complete Target: Protocol: Activity Type Activity Date Activity User E-Sign Co-Sign Detail Recorded Client Recorded Date Recorded By Document 09/13/17 19:15 [id number] [id number] 09/13/17 19:16 [id number] 09/13/17 19:15 PMRU Outcome: Pain/Comfort Outcome/Goals Demonstrates Knowledge and Use of Available Comfort Measures Achieves Acceptable Comfort/Pain Level as Determined by Patient/Condit Maintain Comfort Level Allowing Patient to Fully Participate in Rehab Outcome/Goals Met Demonstrates Knowledge and Use of Available Comfort Measures Safety- Improve/Maintain Start: 09/10/17 11:29 Freq: DAILY@1200 Status: Active Target: Protocol: Activity Type Activity Date Activity User E-Sign Co-Sign Detail Recorded Client Recorded Date Recorded By Document 09/17/17 01:01 [id number] 09/17/17 01:01 [id number] 09/17/17 01:01 PMRU Outcome: Safety Outcome/Goals Remain Free of Injury or Harm Prevent Falls/ Injury Progression Toward Outcome/Goals Progressing Outcome/Goals Met Comment PA in place Skin- Improve/Maintain Start: 09/10/17 11:29 Freq: DAILY@1200 Status: Active Target: Protocol: Activity Type Activity Date Activity User E-Sign Co-Sign Detail Recorded Client Recorded Date Recorded By Document 09/17/17 01:01 [id number] [id number] 09/17/17 01:01 [id number] 09/17/17 01:01 PMRU Outcome: Skin Skin Risk Level Medium Skin Orders Turn/Position q2hr While in Bed Outcome/Goals Maintain/ Improve Skin Intergrity Progression Toward Outcome/Goals Progressing Medicine Note: Length of Stay: 3 days Anticipated Discharge Destination: Home Tentative Discharge Date: 09/20/17 Discharged to: Home
[2017-09-17] MEDS: Atorvastatin* 40 MG TAB PO SCH (16:55)
--- NOTE | 2017-09-17 17:38 | PN ---
Progress Note Date of Service: 09/17/17 Note: ROBBIE GRAHAM was visited. Therapy notes read and reviewed. He was discussed in interdisciplinary team rounds. 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 Current Medications: Active Medications Generic Name Dose Route Start Last Admin Trade Name Freq PRN Reason Stop Dose Admin Acetaminophen 650 mg 09/10/17 12:06 Tylenol Tab* PO Q6H PRN FEVER/PAIN Aspirin 81 mg 09/11/17 09:00 09/17/17 08:11 Aspirin 81 Mg Chew Tab* PO 81 mg DAILY TAYLOR Administration Atorvastatin Calcium 40 mg 09/10/17 17:00 09/17/17 16:55 Lipitor* PO 40 mg 1700 TAYLOR Administration Dabigatran 150 mg 09/11/17 09:00 09/17/17 08:11 Pradaxa Cap(Nf) PO 150 mg BID TAYLOR Administration Docusate Sodium 100 mg 09/10/17 21:00 09/17/17 08:11 Colace Cap* PO Not Given BID [facility] Fluoxetine HCl 10 mg 09/13/17 09:00 09/17/17 08:11 Prozac Cap* PO 10 mg DAILY TAYLOR Administration Magnesium Hydroxide 30 ml 09/10/17 12:06 Milk Of Magnesia Liq* PO Q6H PRN CONSTIPATION Senna 2 tab 09/10/17 12:06 Senokot Tab* PO BEDTIME PRN CONSTIPATION Valsartan 40 mg 09/11/17 09:00 09/17/17 08:11 Diovan Tab* PO 40 mg DAILY TAYLOR Administration Vital Signs: Vital Signs Temp Pulse Resp BP Pulse Ox 97.8 F 47 18 108/46 100 09/17/17 15:39 09/17/17 15:39 09/17/17 15:39 09/17/17 15:39 09/17/17 15:39 Exam: HEENT: Face asymmetric, some right facial weakness LUNGS: clear HEART: irreg rhythm ABDOMEN: Soft NEUROLOGIC: aphasia, with both receptive and expressive elements. Right arm 4+/5 Assessment/Plan: 1. 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 Started Prozac. Will see surgeon Saturday about CEA 2. CLL: Monitor 3. Atrial Fibrillation: Pradaxa. rate controlled 4. DVT Prophylaxis: on Pradaxa 5. CAD: Lipitor/ASA/Pradaxa 6. Cardiomyopathy: can't tolerate beta blockers or CECILLE inhibitors. Continue Yuliana 09/17/17 17:39
[2017-09-18 08:29] LABS: Hematocrit 34 % (42-52); Hemoglobin 11.8 g/dl (14.0-18.0); Mean Corpuscular HGB Conc 35 g/dl (31-36); Mean Corpuscular Hemoglobin 30 pg (27-31); Mean Corpuscular Volume 86 fL (80-94); Mean Platelet Volume 7.3 um3 (7.4-10.4); Platelet Count 135 10^3/ul (150-450); Red Blood Count 3.94 10^6/ul (4.0-5.4); Red Cell Distribution Width 15 % (10.5-15); White Blood Count 15.2 10^3/ul (3.5-10.8)
[2017-09-18 08:36] LABS: ABS Basophils 0 10^3/ul (0-0.2); ABS Eosinophils 0.4 10^3/ul (0-0.6); ABS Monocytes 0.5 10^3/ul (0-0.8); ABS Neutrophils 3.1 10^3/ul (1.5-7.7); ABS Nucleated RBC 0 10^3/ul; Eosinophil % 2.8 % (0-6); Lymphocyte % 72.7 % (25-47); Nucleated Red Blood Cells % 0.2
[2017-09-18 08:45] LABS: EGFR Non-African American 98.7 (>60)
[2017-09-18] MEDS: Docusate CAP* 100 MG PO SCH ×2 (09:50→20:08)
[2017-09-18] MEDS: Valsartan TAB* 40 MG PO SCH (09:51)
[2017-09-18] MEDS: FLUoxetine CAP* 10 MG PO SCH (09:51)
[2017-09-18] MEDS: CMC:Dabigatran CAP(NF) 150 MG CAP PO SCH ×2 (09:51→20:07)
[2017-09-18] MEDS: Aspirin 81 mg CHEW TAB* 81 MG TAB.CHEW PO SCH (09:51)
[2017-09-18] MEDS: Atorvastatin* 40 MG TAB PO SCH (16:48)
--- NOTE | 2017-09-18 19:01 | PN ---
Progress Note Date of Service: 09/18/17 Note: ROBBIE GRAHAM was visited. Therapy notes read and reviewed. His came in for family training today. It went okay. Still planning on discharge Saturday Current Medications: Active Medications Generic Name Dose Route Start Last Admin Trade Name Freq PRN Reason Stop Dose Admin Acetaminophen 650 mg 09/10/17 12:06 Tylenol Tab* PO Q6H PRN FEVER/PAIN Aspirin 81 mg 09/11/17 09:00 09/18/17 09:51 Aspirin 81 Mg Chew Tab* PO 81 mg DAILY TAYLOR Administration Atorvastatin Calcium 40 mg 09/10/17 17:00 09/18/17 16:48 Lipitor* PO 40 mg 1700 TAYLOR Administration Dabigatran 150 mg 09/11/17 09:00 09/18/17 09:51 Pradaxa Cap(Nf) PO 150 mg BID TAYLOR Administration Docusate Sodium 100 mg 09/10/17 21:00 09/18/17 09:50 Colace Cap* PO Not Given BID TAYLOR Fluoxetine HCl 10 mg 09/13/17 09:00 09/18/17 09:51 Prozac Cap* PO 10 mg DAILY TAYLOR Administration Magnesium Hydroxide 30 ml 09/10/17 12:06 Milk Of Magnesia Liq* PO Q6H PRN CONSTIPATION Senna 2 tab 09/10/17 12:06 Senokot Tab* PO BEDTIME PRN CONSTIPATION Valsartan 40 mg 09/11/17 09:00 09/18/17 09:51 Diovan Tab* PO 40 mg DAILY TAYLOR Administration Vital Signs: Vital Signs Temp Pulse Resp BP Pulse Ox 98.3 F 45 18 119/44 96 09/18/17 05:40 09/18/17 06:06 09/18/17 17:09 09/18/17 06:06 09/18/17 06:06 Lab Results: Laboratory Results - last 24 hr 09/18/17 09/18/17 08:09 08:09 WBC 15.2 H RBC 3.94 L Hgb 11.8 L Hct 34 L MCV 86 MCH 30 MCHC 35 RDW 15 Plt Count 135 L MPV 7.3 L Neut % (Auto) 20.6 L Lymph % (Auto) 72.7 H [place] % (Auto) 3.6 Eos % (Auto) 2.8 Baso % (Auto) 0.3 Absolute Neuts (auto) 3.1 Absolute Lymphs (auto) 11.0 H Absolute Monos (auto) 0.5 Absolute Eos (auto) 0.4 Absolute Basos (auto) 0 Absolute Nucleated RBC 0 Nucleated RBC % 0.2 Sodium 131 L Potassium 4.6 Chloride 99 L Carbon Dioxide 28 Anion Gap 4 BUN 22 Creatinine 0.75 Est GFR ( Amer) 127.0 Est GFR (Non-Af Amer) 98.7 BUN/Creatinine Ratio 29.3 H Glucose 95 Calcium 9.0 Total Bilirubin 0.60 AST 21 ALT 13 Alkaline Phosphatase 65 Total Protein 5.8 L Albumin 4.0 Globulin 1.8 L Albumin/Globulin Ratio 2.2 Exam: HEENT: Face asymmetric, some right facial weakness LUNGS: clear HEART: irreg rhythm ABDOMEN: Soft NEUROLOGIC: aphasia, with both receptive and expressive elements. Right arm 4+/5 Assessment/Plan: 1. 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 Started Prozac. Will see surgeon Saturday about CEA 2. CLL: Monitor 3. Atrial Fibrillation: Pradaxa. rate controlled 4. DVT Prophylaxis: on Pradaxa 5. CAD: Lipitor/ASA/Pradaxa 6. Cardiomyopathy: can't tolerate beta blockers or CECILLE inhibitors. Continue Diovan 09/18/17 19:01
[2017-09-19] MEDS: CMC:Dabigatran CAP(NF) 150 MG CAP PO SCH ×2 (10:16→20:22)
[2017-09-19] MEDS: FLUoxetine CAP* 10 MG PO SCH (10:16)
[2017-09-19] MEDS: Aspirin 81 mg CHEW TAB* 81 MG TAB.CHEW PO SCH (10:16)
[2017-09-19] MEDS: Valsartan TAB* 40 MG PO SCH (10:16)
[2017-09-19] MEDS: Docusate CAP* 100 MG PO SCH ×2 (10:17→20:21)
[2017-09-19] MEDS: Atorvastatin* 40 MG TAB PO SCH (16:42)
--- NOTE | 2017-09-19 22:07 | PN ---
Progress Note Date of Service: 09/19/17 Note: ROBBIE GRAHAM was visited. Therapy notes read and reviewed. He remains aphasic. He is set for discharge tomorrow and will see vascular surgeon at [facility] in [place] after discharge. Current Medications: Active Medications Generic Name Dose Route Start Last Admin Trade Name Freq PRN Reason Stop Dose Admin Acetaminophen 650 mg 09/10/17 12:06 Tylenol Tab* PO Q6H PRN FEVER/PAIN Aspirin 81 mg 09/11/17 09:00 09/19/17 10:16 Aspirin 81 Mg Chew Tab* PO 81 mg DAILY TAYLOR Administration Atorvastatin Calcium 40 mg 09/10/17 17:00 09/19/17 16:42 Lipitor* PO 40 mg 1700 TAYLOR Administration Dabigatran 150 mg 09/11/17 09:00 09/19/17 20:22 Pradaxa Cap(Nf) PO 150 mg BID TAYLOR Administration Docusate Sodium 100 mg 09/10/17 21:00 09/19/17 20:21 Colace Cap* PO Not Given BID [facility] Fluoxetine HCl 10 mg 09/13/17 09:00 09/19/17 10:16 Prozac Cap* PO 10 mg DAILY TAYLOR Administration Magnesium Hydroxide 30 ml 09/10/17 12:06 Milk Of Magnesia Liq* PO Q6H PRN CONSTIPATION Senna 2 tab 09/10/17 12:06 Senokot Tab* PO BEDTIME PRN CONSTIPATION Valsartan 40 mg 09/11/17 09:00 09/19/17 10:16 Diovan Tab* PO 40 mg DAILY TAYLOR Administration Vital Signs: Vital Signs Temp Pulse Resp BP Pulse Ox 98.2 F 84 22 104/44 97 09/19/17 19:10 09/19/17 16:22 09/19/17 19:10 09/19/17 16:22 09/19/17 18:51 Lab Results: Laboratory Results - last 24 hr 09/18/17 08:09 Hem Pathologist Commnt Exam: HEENT: Face asymmetric, some right facial weakness LUNGS: clear HEART: irreg rhythm ABDOMEN: Soft NEUROLOGIC: aphasia, with both receptive and expressive elements. Right arm 4+/5 Assessment/Plan: 1. 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 Started Prozac. Will see surgeon about CEA tomorrow 2. CLL: Monitor. WBC high but stable 3. Atrial Fibrillation: Pradaxa. rate controlled 4. DVT Prophylaxis: on Pradaxa 5. CAD: Lipitor/ASA/Pradaxa 6. Cardiomyopathy: can't tolerate beta blockers or CECILLE inhibitors. Continue Yuliana 09/19/17 22:08
[2017-09-20 06:22] VITALS: BP 122/53
--- NOTE | 2017-09-20 07:46 | PN ---
Progress Note Date of Service: 09/20/17 Note: ROBBIE GRAHAM was visited. Nursing and therapy notes read and reviewed. He feels well and denies any chest pain, shortness of breath or abdominal pain. Current Medications: Active Medications Generic Name Dose Route Start Last Admin Trade Name Freq PRN Reason Stop Dose Admin Acetaminophen 650 mg 09/10/17 12:06 Tylenol Tab* PO Q6H PRN FEVER/PAIN Aspirin 81 mg 09/11/17 09:00 09/19/17 10:16 Aspirin 81 Mg Chew Tab* PO 81 mg DAILY TAYLOR Administration Atorvastatin Calcium 40 mg 09/10/17 17:00 09/19/17 16:42 Lipitor* PO 40 mg 1700 TAYLOR Administration Dabigatran 150 mg 09/11/17 09:00 09/19/17 20:22 Pradaxa Cap(Nf) PO 150 mg BID TAYLOR Administration Docusate Sodium 100 mg 09/10/17 21:00 09/19/17 20:21 Colace Cap* PO Not Given BID [facility] Fluoxetine HCl 10 mg 09/13/17 09:00 09/19/17 10:16 Prozac Cap* PO 10 mg DAILY TAYLOR Administration Magnesium Hydroxide 30 ml 09/10/17 12:06 Milk Of Magnesia Liq* PO Q6H PRN CONSTIPATION Senna 2 tab 09/10/17 12:06 Senokot Tab* PO BEDTIME PRN CONSTIPATION Valsartan 40 mg 09/11/17 09:00 09/19/17 10:16 Diovan Tab* PO 40 mg DAILY TAYLOR Administration Vital Signs: Vital Signs Temp Pulse Resp BP Pulse Ox 98.2 F 51 20 122/53 100 09/20/17 06:21 09/20/17 06:21 09/20/17 06:21 09/20/17 06:21 09/20/17 06:21 Lab Results: Exam: GEN: No acute distress. Alert and appropriate. HEENT: Face asymmetric, some right facial weakness LUNGS: clear to auscultation bilaterally HEART: irregularly irregular rhythm ABDOMEN: Soft, non-tender, non-distended, + bowel sounds EXTREMITIES: No edema. NEUROLOGIC: aphasia, with both receptive and expressive elements.Motor 5/5 bilaterally except 4/5 throughout right upper extremity. Sensation impaired in right upper extremity and appears intact in right lower extremity. 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 Has underlying carotid disease and atrial fibrillation 1. Left CVA with aphasia and right sided weakness: ASA/Lipitor. Prozac for stroke motor recovery. Will see surgeon about CEA today after d/c. 2. CLL: WBC high but stable 3. Atrial Fibrillation: Pradaxa. rate controlled 4. DVT Prophylaxis: on Pradaxa 5. CAD: Lipitor/ASA/Pradaxa 6. Cardiomyopathy: can't tolerate beta blockers or CECILLE inhibitors. Continue Diovan 7. Discharge home today with family support. Family training and stroke education completed. 8. Advanced directives: He is a full code. is surrogate decision maker. 09/20/17 07:43
[2017-09-20] MEDS: CMC:Dabigatran CAP(NF) 150 MG CAP PO SCH (08:12)
[2017-09-20] MEDS: FLUoxetine CAP* 10 MG PO SCH (08:12)
[2017-09-20] MEDS: Docusate CAP* 100 MG PO SCH (08:12)
[2017-09-20] MEDS: Valsartan TAB* 40 MG PO SCH (08:12)
[2017-09-20] MEDS: Aspirin 81 mg CHEW TAB* 81 MG TAB.CHEW PO SCH (08:12)
--- NOTE | 2017-09-20 09:43 | DS ---
CC: Dr. Woods REHABILITATION DISCHARGE SUMMARY: DATE OF ADMISSION: 09/10/17 DATE OF DISCHARGE: 09/20/17 PRIMARY CARE PROVIDER: Dr. Woods. REASON FOR ADMISSION: Left-sided cerebrovascular accident with right-sided weakness and aphasia. HISTORY OF PRESENT ILLNESS: For full details of his acute hospitalization leading up to his admission, please see the note dictated by Dr. Ivory on 08/25. HOSPITAL COURSE: During his time on the [facility], he remained medically stable. He has CLL and his white blood cells remained chronically elevated. He was maintained on Pradaxa for atrial fibrillation. He continued to be rate controlled. He also continued to take Diovan for his cardiomyopathy because he could not tolerate beta- blockers or CECILLE inhibitors in the past. He was started on Prozac for motor recovery after stroke and seems to tolerate this medication. This should continue for at least 3 months if he continues to tolerate it. He participated well with physical therapy and at the time of discharge was independent with bed mobility. He can transfer with the supervision of one without an assistive device. He can ambulate 300 feet without an assistive device, but with supervision. He can climb 12 steps using 1 or 2 rails with supervision. He also participated well with occupational therapy. He is independent with eating. He is on a heart healthy diet with regular textures and thin liquids. He requires supervision with cues to be thorough for bathing and tub transfers. He requires supervision with cues to sit for lower extremity dressing to assure his safety. He requires supervision for toileting and toilet transfers. He needs assistance for home management and cooking. With speech therapy, he has continued to have [id number] receptive and expressive aphasia. This has been the slowest to show any improvement. He and his family underwent stroke education. His family underwent training and his will be available to help him as needed. He is having followup today with Vascular Surgery to determine if he is a candidate for carotid endarterectomy. DISCHARGE CONDITION: Fair. DISCHARGE DISPOSITION: Home with family support. DISCHARGE MEDICATIONS: 1. Aspirin 81 mg daily. 2. Atorvastatin 40 mg daily. 3. Pradaxa 150 mg b.i.d. 4. Fluoxetine 10 mg daily. 5. Valsartan 40 mg daily. DISCHARGE DIAGNOSES: 1. 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 2. Chronic lymphocytic leukemia. 3. Atrial fibrillation. 4. Coronary artery disease. 5. Cardiomyopathy. 6. Idiopathic thrombocytopenia purpura. FOLLOWUP: 1. He is to follow up with Vascular Surgery today at [facility] at 1:30 p.m. 2. He has been referred for outpatient speech therapy with Shakir Perkins who has been seeing him here ideally next week. A prescription was provided for them to do that, but they want to wait to make an appointment until after they see Vascular Surgery today. 3. There is followup with a physician's orthodontic technician assistant, Evan Cisneros, at [facility] on at 4 p.m. 4. Follow up with his primary care provider, Dr. Woods within the next month. [id number]/[facility] #: [id number] MTDEmilia
== END 2017-09-20 10:00 | disposition home or self-care (01) | DRG 57 ==
LOC: PMRU 11:11
PROVIDERS: ADMIT Physical Medicine & Rehabilitation; ATTEND Physical Medicine & Rehabilitation
PROC: F07Z5ZZ Bed Mobility Treatment (ICD-10-PCS; principal; 2017-09-10)
PROC: F07Z9ZZ Gait Training/Functional Ambulation Treatment (ICD-10-PCS; 2017-09-10)
PROC: F07Z8ZZ Transfer Training Treatment (ICD-10-PCS; 2017-09-10)
PROC: F08Z0ZZ Bathing/Showering Techniques Treatment (ICD-10-PCS; 2017-09-10)
PROC: F08Z1ZZ Dressing Techniques Treatment (ICD-10-PCS; 2017-09-10)
PROC: F08Z3ZZ Feeding/Eating Treatment (ICD-10-PCS; 2017-09-10)
PROC: F06Z3ZZ Aphasia Treatment (ICD-10-PCS; 2017-09-10)
DX: I69.351 Hemiplegia and hemiparesis following cerebral infarction affecting right dominant side (principal); C91.10 Chronic lymphocytic leukemia of B-cell type not having achieved remission; I42.9 Cardiomyopathy, unspecified; D69.3 Immune thrombocytopenic purpura; I69.320 Aphasia following cerebral infarction; I48.91 Unspecified atrial fibrillation; I25.10 Atherosclerotic heart disease of native coronary artery without angina pectoris; G62.0 Drug-induced polyneuropathy; T45.1X5D Adverse effect of antineoplastic and immunosuppressive drugs, subsequent encounter; Z85.820 Personal history of malignant melanoma of skin; Z79.01 Long term (current) use of anticoagulants; Z79.82 Long term (current) use of aspirin; Z79.899 Other long term (current) drug therapy; Z88.8 Allergy status to other drugs, medicaments and biological substances; Z95.1 Presence of aortocoronary bypass graft; Z95.5 Presence of coronary angioplasty implant and graft
CPT/HCPCS: 36415; 80053; 85025; 85060; A9270-GY; G0515-GO

== ENCOUNTER 2018-01-23 11:57 | Emergency (ER) | payer MEDICARE ==
--- NOTE | 2018-01-23 12:20 | ED ---
Altered Mental Status - HPI Summary HPI Summary: This is scribe Heath Michele documenting for attending Twan Garrison MD. This patient is a 87 year old M presenting to [facility] with a chief complaint of altered mental status since 10:30 this morning. He was non-responsive in the car. He was not answering questions, confused, couldnt talk, and could not say who his family was. In the room, the patient was responsive and could answer questions again. Patient has a PMHx of A Fib and a stroke in August which affected his speech and processing. Per the family, he never returned to normal. He is on Tylenol and Brilinta. I, Dr. Garrison, personally performed the services described in this documentation as scribed in my presence, and it is both accurate and complete. - History Of Current Complaint Stated Complaint: CONFUSION Hx Obtained From: Patient, Family/Red Lead Burner Onset/Duration: Resolved, Suddenly Timing: Lasting Hours - Since 10:30 this morning until recently. Severity Initially: Moderate Character: Confusion, Responsiveness - Did not respond to questions Aggravating Factor(s): Nothing Alleviating Factor(s): Nothing - Allergies/Home Medications Allergies/Adverse Reactions: Allergies Allergy/AdvReac Type Severity Reaction Status Date / Time clopidogrel [From Plavix] Allergy Rash Verified 01/23/18 12:07 Home Medications: Home Medications Aspirin 81 mg CHEW TAB* 81 mg PO QAM 01/23/18 [History Confirmed 01/23/18] Atorvastatin* [Lipitor*] 40 mg PO DAILY 01/23/18 [History Confirmed 01/23/18] Losartan Potassium [Cozaar] 50 mg PO QAM 01/23/18 [History Confirmed 01/23/18] Ticagrelor* [Brilinta*] 90 mg PO BID 01/23/18 [History Confirmed 01/23/18] PMH/Surg Hx/FS Hx/Imm Hx Cardiovascular History: Reports: Hx Hypercholesterolemia, Hx Hypertension, Other Cardiovascular Problems/Disorders - cardiac dysrhytmia,incomplete right BBB, ischemic cardiomyopathy Respiratory History: Reports: Other Respiratory Problems/Disorders - acute bronchitis 06/11/12 GI History: Reports: Other GI Disorders - dilation of esophageal stricture History: Reports: Other Problems/Disorders - prostate hypertrophy with urinary obstruction Musculoskeletal History: Reports: Hx Arthritis, Other Musculoskeletal History - bilateral TKR, bilateral rotator cuff repairs, partial r hip replacement Sensory History: Reports: Hx Contacts or Glasses, Hx Hearing Problem Denies: Hx Hearing Aid Opthamlomology History: Reports: Hx Contacts or Glasses Neurological History: Reports: Other Neuro Impairments/Disorders - chemo induced peripheral neuropathy - Cancer History Cancer Type, Location and Year: 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 r rotator cuff repair 07/11/98, l rotator cuff repair 08/12/98, bilateral total knee replacements 06/19/94 Infectious Disease History: No Infectious Disease History: Reports: Hx Clostridium Difficile - 09/24/14 Denies: Traveled Outside the [place] in Last 30 Days - Family History Known Family History: Positive: Cardiac Disease - Social History Alcohol Use: None Substance Use Type: Reports: None Smoking Status (MU): Never Smoked Tobacco Have You Smoked in the Last Year: No Review of Systems Negative: Fever Neurological: Other - In the car: not answering questions, confused, couldnt talk, and could not say who his family was. These resolved at the hospital. All Other Systems Reviewed And Are Negative: Yes Physical Exam - Summary Physical Exam Summary: VITAL SIGNS: Reviewed. GENERAL: Patient is a well-developed and nourished elderly MALE who is lying comfortable in the stretcher. Patient is not in any acute respiratory distress. HEAD AND FACE: No signs of trauma. No ecchymosis, hematomas or skull depressions. No sinus tenderness. EYES: PERRLA, EOMI x 2, No injected conjunctiva, no nystagmus. EARS: Hearing grossly intact. Ear canals and tympanic membranes are within normal limits. MOUTH: Oropharynx within normal limits. NECK: Supple, trachea is midline, no adenopathy, no JVD, no carotid bruit, no c- spine tenderness, neck with full ROM. CHEST: Symmetric, no tenderness at palpation LUNGS: Clear to auscultation bilaterally. No wheezing or crackles. CVS: Regular rate and rhythm, S1 and S2 present, no murmurs or gallops appreciated. ABDOMEN: Soft, non-tender. No signs of distention. No rebound no guarding, and no masses palpated. Bowel sounds are normal. EXTREMITIES: FROM in all major joints, no edema, no cyanosis or clubbing. NEURO: Alert and oriented x 3. No acute neurological deficits. Speech is normal and follows commands. SKIN: Dry and warm Triage Information Reviewed: Yes Vital Signs On Initial Exam: Initial Vitals Temp Pulse Resp BP Pulse Ox 97.8 F 67 17 155/83 99 01/23/18 12:00 01/23/18 12:00 01/23/18 12:00 01/23/18 12:00 01/23/18 12:00 Vital Signs Reviewed: Yes Diagnostics - Vital Signs Vital Signs Temp Pulse Resp BP Pulse Ox 01/23/18 12:04 81 01/23/18 12:02 95 155/83 01/23/18 12:00 97.8 F 67 17 155/83 99 - Laboratory Result Diagrams: 01/23/18 12:42 01/23/18 12:42 Lab Statement: Any lab studies that have been ordered have been reviewed, and results considered in the medical decision making process. - Radiology Chest X-Ray Radiology Interpretation Completed By: Radiologist - 12:55. NO ACTIVE DISEASE. ED Physician has reviewed this report. - CT Brain CT CT Interpretation Completed By: Radiologist - 12:33. IMPRESSION: 1. NO EVIDENCE FOR GROSS ACUTE INFARCT, MASS EFFECT OR HEMORRHAGE. 2. SMALL OLD LEFT OCCIPITAL LOBE INFARCT. 3. ATROPHY AND FINDINGS CONSISTENT WITH MODERATE TO SEVERE CHRONIC SMALL VESSEL ISCHEMIC CHANGES. ED Physician has reviewed this report. Head CTA CT Interpretation Completed By: Radiologist - Neck Angriogram Impression: Up to 95% moderate length stenosis at the proximal LEFT internal carotid artery. Negative for RIGHT carotid stenosis. Up to 70% stenosis at the distal RIGHT vertebral artery. Severe plaque limits assessment of the ostium of the LEFT vertebral artery. HEAD ANGIOGRAM IMPRESSION: Calcific plaque results in up to 50 % stenosis of the bilateral intracranial internal. ED Physician has reviewed this imaging report. - EKG No standard instances Cardiac Rate: NL - 69 BPM EKG Rhythm: Atrial Fibrillation EKG Interpretation: 12:08. No ST elevations. There are PVCs. Altered Mental Statu Course/Dx - Course Assessment/Plan: This patient is an 87 year old man with a PMHx of CVA and A fib , for which the patient is taking Aspirin and Vrilinta. The patient came into the ED with one episdoe of speech aphasia. However, all his symptoms resolved before he arrived to the ED. Test results show that the patient WBC of 17.5, hemoglobin of 11.2, hematocrit of 11.4, platelets of 139, sodium 131, urinalysis negative for UTI. Chest X-Ray showed no acute pathology. Head CT shows no evidence for gross acute infarct, mass effect, or hemmorrhage. Small left occiptal lobe infarct. He has atrophy and moderate to servere chronic small vessel ischemia. I disccussed my physical exam findings with Dr. Black who accepted the patient for admission. THe hospitalist decided to do a head and neck CTA which shows that the patient has 95% moderate left stenosis to the left proximal internal carotid artery and 70% stenosis to the right vertebral artery. Therefore, they discussed the case with Dr. Cunningham from neurology who recommends the patient be transported to [place] for further work-up and management. I discussed the case with Dr. Bowen from [facility] and he accepts for the patient for transport to his services. However, the patient refuses to go via ambulance. Family members agree. They will drive the patient to the ED. I further discuss with Dr. Wheeler about the wishes of the patient. He agreed, and gave his ED department a heads up that the patient will be arriving. I will send with the patient the images, the bloodwork, and my note. Patient is hemodynamically stable, alert and oriented x3. - Diagnoses Provider Diagnoses: TIA (transient ischemic attack) Discharge - Sign-Out/Discharge Documenting (check all that apply): Patient Departure - Transferred to Dr. Bowen in [place]. Dr. Brian Kennedy is the ED attending and is aware that the patient is coming. - Discharge Plan Condition: Stable Disposition: ADMITTED TO OTHER HOSPITAL Referrals: Markos Woods MD [Primary Care Provider] -
--- NOTE | 2018-01-23 12:36 | RAD ---
INDICATION: Altered mental status. COMPARISON: There are no prior studies available for comparison. TECHNIQUE: Contiguous axial sections of the brain were obtained from the skull base to the vertex without contrast. FINDINGS: The ventricles, cisterns and sulci are enlarged consistent with diffuse atrophy. There are multiple focal areas of decreased density in the subcortical and periventricular white matter suggestive of moderate to severe chronic small vessel ischemic changes. There is a more focal area of decreased density in the posterior left cerebral lobe suggestive of an old infarct. There is no evidence for hemorrhage. No significant focal osseous abnormality is seen. The visualized portion of the paranasal sinuses and mastoid air cells appear clear. IMPRESSION: 1. NO EVIDENCE FOR GROSS ACUTE INFARCT, MASS EFFECT OR HEMORRHAGE. 2. SMALL OLD LEFT OCCIPITAL LOBE INFARCT. 3. ATROPHY AND FINDINGS CONSISTENT WITH MODERATE TO SEVERE CHRONIC SMALL VESSEL ISCHEMIC CHANGES.
[2018-01-23 12:50] LABS: Hematocrit 34 % (42-52); Hemoglobin 11.2 g/dl (14.0-18.0); Mean Corpuscular HGB Conc 33 g/dl (31-36); Mean Corpuscular Hemoglobin 30 pg (27-31); Mean Corpuscular Volume 88 fL (80-94); Mean Platelet Volume 6.9 um3 (7.4-10.4); Platelet Count 139 10^3/ul (150-450); Red Blood Count 3.81 10^6/ul (4.00-5.40); Red Cell Distribution Width 18 % (10.5-15); White Blood Count 17.5 10^3/ul (3.5-10.8)
--- NOTE | 2018-01-23 12:58 | RAD ---
INDICATION: Altered mental status COMPARISON: None TECHNIQUE: An AP seated view obtained at 1225 hours is submitted. FINDINGS: Bones/Soft Tissues: There are no acute bony findings. There is sternotomy. Cardiomediastinal: The cardiomediastinal silhouette is normal. There is a left-sided cardiac pacemaker Lungs: There are no infiltrates. Pleura: There are no pleural effusions. Other: None IMPRESSION: NO ACTIVE DISEASE.
[2018-01-23 13:09] LABS: ABS Basophils 0.1 10^3/ul (0-0.2); ABS Eosinophils 0.4 10^3/ul (0-0.6); ABS Monocytes 0.7 10^3/ul (0-0.8); ABS Neutrophils 3.4 10^3/ul (1.5-7.7)
[2018-01-23 13:14] LABS: ABS Basophils 0 10^3/ul (0-0.2); ABS Neutrophils 3.3 10^3/ul (1.5-7.7); Monocytes % 2 % (0-7)
[2018-01-23 14:06] LABS: Urine Appearance Clear; Urine Blood 3+ (Negative); Urine Color Yellow; Urine Ketones Negative (Negative); Urine Protein Negative (Negative); Urine Red Blood Cell 3+(>10/hpf) (Absent); Urine Urobilinogen Negative (Negative); Urine White Blood Cell 3+(>20/hpf) (Absent)
[2018-01-23] MEDS ORDERED: Iohexol 350* (CONTRAST) 500 ML MDV IV ONE (15:40)
--- NOTE | 2018-01-23 16:40 | RAD ---
INDICATION: Hit head in shower; subsequent aphasia. COMPARISON: Noncontrast head CT of the same date. TECHNIQUE: Multidetector CT images were obtained from the aortic arch to the vertex of the head with 80 mL Omnipaque 350 IV contrast. Arterial phase of enhancement. Multiplanar reformation including maximum intensity projection. 3-D arterial volume rendering. Stenosis estimations based on denominator of distal arterial diameter. NECK ANGIOGRAM REPORT: Normal configuration of the aortic arch branch vessels. Atherosclerotic plaque without hemodynamic significant ostial stenosis of the branch vessels. Minimal calcific and noncalcific plaque at the RIGHT carotid bifurcation without stenosis resulting based on NASCET criteria. Calcific and noncalcific plaque at the LEFT carotid bulb and proximal internal carotid artery results in up to 95 % short segment stenosis. Normal opacification of the dominant LEFT and smaller RIGHT vertebral arteries with both vertebral arteries contributing to the basilar artery. Up to 70% stenosis at the distal RIGHT vertebral artery at the level of the craniocervical junction due to calcific and noncalcific plaque. Severe calcific plaque limits assessment of the ostium of the LEFT vertebral artery. Multilevel cervical spine advanced degenerative spondylosis and facet joint osteoarthritis. Mild resulting central canal stenosis at C3-C4. Moderately severe RIGHT unilateral foraminal stenosis at C3-C4. NECK ANGIOGRAM IMPRESSION: #. Up to 95% moderate length stenosis at the proximal LEFT internal carotid artery. #. Negative for RIGHT carotid stenosis. #. Up to 70% stenosis at the distal RIGHT vertebral artery. Severe plaque limits assessment of the ostium of the LEFT vertebral artery. HEAD ANGIOGRAM REPORT: Calcific plaque results in up to 50% stenosis of the bilateral intracranial internal carotid arteries at the siphons. Unremarkable M1 and M2 segments of the middle cerebral arteries. 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 Unremarkable basilar artery and cerebellar artery origins. Patent RIGHT posterior cerebral artery is supplied primarily by the posterior circulation with normal variant hypoplastic posterior communicating artery. Patent LEFT posterior cerebral artery is supplied in grossly equal portions by the P1 segment and LEFT posterior communicating artery. Negative for intracranial aneurysms, vascular malformations, or arterial phase enhancing lesions. Normal opacification of the dominant dural venous sinuses. HEAD ANGIOGRAM IMPRESSION: #. Calcific plaque results in up to 50% stenosis of the bilateral intracranial internal carotid arteries at the siphons. #. 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 #. Unremarkable M1 and M2 middle cerebral artery segments. #. Patent posterior cerebral arteries. #. Results discussed with Dr. Garrison 01/23/2018 4:36 PM EDT CPT II: CPT II Codes: 3100F
[2018-01-23] MEDS ORDERED: Atorvastatin* 80 MG TAB PO ONE (17:10)
[2018-01-23] MEDS ORDERED: Aspirin TAB* 325 MG PO ONE (17:10)
[2018-01-23] MEDS ORDERED: Ticagrelor* 90 MG TAB PO ONE (17:15)
[2018-01-23 17:59] VITALS: BP 161/79
--- NOTE | 2018-01-23 20:42 | CONS ---
CONSULTATION REPORT: DATE OF CONSULT: 01/23/2018. HISTORY OF PRESENT ILLNESS: Hospital Medicine was consulted regarding admitting Mr. Deven Koehler. He is an 87-year-old male with a past medical history of a left CVA, treated at our hospital for rehabilitation in September 2017. He, at that time, had aphasia and right-sided weakness. His right-sided weakness has improved and though his aphasia has improved, he still continued to have some symptoms of that. Today, he was driving in the car with his when she noted that he seemed confused and was having much more difficulty answering her questions. He "didn't even seem to know he was in the car." She did not note any weakness or facial droop. She went nearby where family members were and they assessed him as well and were concerned for his confusion too, and therefore he was ultimately transitioned to the emergency room. The patient today for me denies any complaint. At the time of my examination, he is demonstrating expressive aphasia as well as some receptive aphasia. At times , he is able to follow my commands quite well and then at other times not be able to. He is able to tell me his name and able to repeat words that I offered to him, but he is not able to answer any other questions. He appears to have a small amount of right facial droop and the patient's family cannot confirm for me whether or not this is new or old. He has no other neurological deficits. In the emergency room, the patient had a CT of the brain, which showed no abnormality. The remainder of his labs were consistent with his history of CLL with a slightly elevated white blood cell count and anemia and thrombocytopenia per his baseline. The patient was called to the hospital medicine team for admission. I assessed the patient and then reviewed the case with Dr. Cunningham. In speaking with the family, they note that he was planned for a stent to his left carotid artery for approximately 70% stenosis on 02/13/18 at [facility] in [place], [place]. The recommendation from Dr. Cunningham was that we obtain a CTA of the head and neck to evaluate this carotid artery. This has been completed and is now showing a 95% stenosis at the left carotid artery and the recommendation from Dr. Cunningham and the hospitalist team is that the patient be transferred to [facility] for further evaluation and treatment as indicated. Dr. Garrison has confirmed this patient has been given aspirin today and he will review the need for any other antiplatelets with the team at [facility] before his transfer. This is the end of brief consultation. TIME SPENT: Approximately, 30 minutes was spent on the consultation of this patient, more than half the time was spent with him at the bedside. GABRIELLA MANSFIELD NP [id number]/[facility] #: [id number] JERAD
[2018-01-23] MEDS ORDERED: Ticagrelor* 90 MG TAB PO SCH (21:00)
== END 2018-01-23 17:58 | disposition short-term general hospital (02) ==
LOC: ED 11:57
DX: G45.9 Transient cerebral ischemic attack, unspecified (principal); I48.91 Unspecified atrial fibrillation; E78.00 Pure hypercholesterolemia, unspecified; I10 Essential (primary) hypertension; Z95.1 Presence of aortocoronary bypass graft; Z79.02 Long term (current) use of antithrombotics/antiplatelets; Z79.82 Long term (current) use of aspirin; Z96.641 Presence of right artificial hip joint; Z96.653 Presence of artificial knee joint, bilateral; Z88.8 Allergy status to other drugs, medicaments and biological substances
CPT/HCPCS: 36415; 70450; 70496; 70498; 71045; 80053; 80320; 80329; 81003; 81015; 82140; 82550; 83605; 83735; 84443; 84484; 85025; 85060; 87086; 93005; 99284; A9270-GY; G0480; Q9967

== ENCOUNTER 2018-05-15 11:46 | Inpatient (IN) | payer MEDICARE ==
--- NOTE | 2018-05-15 12:57 | ED ---
Neurological HPI - HPI Summary HPI Summary: An 88 y/o male presents to [facility] with a chief complaint of being disoriented, per , since 06:30 05/15/18. He ranks his pain as 0/10 and states that he feels fine. Per , the patient was taking a shower this morning when he became disoriented, felt weak, and had difficulty ambulating. Reportedly, he was walking around with a cane without any difficulty before 05/15/18. His industrial chemist also noticed that his left eye was different, stating that it looks like he is squinting. His also notes that the patient as a rash "all over his body", and that he has a cough, but the cough is normal for him. In triage he also had a slight fever of 100.5. They called their PCP, Dr. Woods, who referred them to the ED. The patient has a vast MHx. He had a stent put in his left carotid artery in February 2018. He has a pacemaker. He also had knee and hip replacement surgeries. 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 - History of Current Complaint Chief Complaint: EDAltMentalStatus Stated Complaint: DISORIENTED/GENERAL ILLNESS Time Seen by Provider: 05/15/18 12:40 Hx Obtained From: Patient, Family/Medical Psychotherapist Onset/Duration: Sudden Onset, Started hours ago Onset Severity: Moderate Current Severity: Mild Pain Intensity: 0 Pain Scale Used: 0-10 Numeric Aggravating: Nothing Alleviating: Nothing Associated Signs and Symptoms: Positive: Weakness. Negative: Pain - Allergy/Home Medications Allergies/Adverse Reactions: Allergies Allergy/AdvReac Type Severity Reaction Status Date / Time clopidogrel [From Plavix] Allergy Rash Verified 01/23/18 12:07 PMH/Surg Hx/FS Hx/Imm Hx Cardiovascular History: Reports: Hx Hypercholesterolemia, Hx Hypertension, Other Cardiovascular Problems/Disorders - cardiac dysrhytmia,incomplete right BBB, ischemic cardiomyopathy Respiratory History: Reports: Other Respiratory Problems/Disorders - acute bronchitis 06/11/12 GI History: Reports: Other GI Disorders - dilation of esophageal stricture History: Reports: Other Problems/Disorders - prostate hypertrophy with urinary obstruction Musculoskeletal History: Reports: Hx Arthritis, Other Musculoskeletal History - bilateral TKR, bilateral rotator cuff repairs, partial r hip replacement Sensory History: Reports: Hx Contacts or Glasses, Hx Hearing Problem Denies: Hx Hearing Aid Opthamlomology History: Reports: Hx Contacts or Glasses Neurological History: Reports: Other Neuro Impairments/Disorders - chemo induced peripheral neuropathy - Cancer History Cancer Type, Location and Year: 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 r rotator cuff repair 07/11/98, l rotator cuff repair 08/12/98, bilateral total knee replacements 06/19/94 Infectious Disease History: No Infectious Disease History: Reports: Hx Clostridium Difficile - 09/24/14 Denies: Traveled Outside the [place] in Last 30 Days - Family History Known Family History: Negative: Blood Disorder - Social History Alcohol Use: None Substance Use Type: Reports: None Smoking Status (MU): Never Smoked Tobacco Have You Smoked in the Last Year: No Review of Systems Positive: Fever Eyes: Other - positive: per industrial chemist, left eye seemed different: like he was squinting Positive: Cough - Pt has cough but claims it is his baseline Positive: Rash Neurological: Other - Positive: disoriented Positive: Weakness All Other Systems Reviewed And Are Negative: Yes Physical Exam - Summary Physical Exam Summary: Appearance: The patient is well-nourished in no acute distress and in no acute pain. Skin: The skin is warm and dry and skin color reflects adequate perfusion. HEENT: The head is normocephalic and atraumatic. The pupils are equal and reactive. The conjunctivae are clear and without drainage. Nares are patent and without drainage. Mouth reveals moist mucous membranes and the throat is without erythema and exudate. The external ears are intact. The ear canals are patent and without drainage. The tympanic membranes are intact. Neck: The neck is supple with full range of motion and non-tender. There are no carotid bruits. There is no neck vein distension. Respiratory: Chest is non-tender. Lungs are clear to auscultation and breath sounds are symmetrical and equal. Cardiovascular: Heart is regular rate and rhythm. There is no murmur or rub auscultated. There is no peripheral edema and pulses are symmetrical and equal. Abdomen: The abdomen is soft and non-tender. There are normal bowel sounds heard in all four quadrants and there is no organomegaly palpated. Musculoskeletal: There is no back tenderness noted. Extremities are non-tender with full range of motion. There is good capillary refill. There is no peripheral edema or calf tenderness elicited. Neurological: Patient is alert and oriented to person, place and time. The patient has symmetrical motor strength in all four extremities. Expressive aphasia. Psychiatric: The patient has an appropriate affect and does not exhibit any anxiety or depression. GCS: 15 Triage Information Reviewed: Yes Vital Signs On Initial Exam: Initial Vitals Temp Pulse Resp BP Pulse Ox 100.5 F 79 16 159/64 99 05/15/18 11:48 05/15/18 11:48 05/15/18 11:48 05/15/18 11:48 05/15/18 11:48 Vital Signs Reviewed: Yes Diagnostics - Vital Signs Vital Signs Temp Pulse Resp BP Pulse Ox 05/15/18 11:48 100.5 F 79 16 159/64 99 - Laboratory Result Diagrams: 05/15/18 13:21 05/15/18 13:21 Lab Statement: Any lab studies that have been ordered have been reviewed, and results considered in the medical decision making process. - Radiology CXR Radiology Interpretation Completed By: Radiologist Summary of Radiographic Findings: Cardiomegaly. Interstitial edema consistent with vascular congestion. ED physician has reviewed this imaging report. - CT Brain CT CT Interpretation Completed By: Radiologist Summary of CT Findings: 1. NO EVIDENCE FOR ACUTE INTRACRANIAL ABNORMALITY. 2. ATROPHY AND FINDINGS CONSISTENT WITH MODERATE TO SEVERE CHRONIC SMALL VESSEL ISCHEMIC. CHANGES. 3. FINDINGS MOST CONSISTENT WITH OLD INFARCTS IN THE LEFT FRONTAL AND PARIETAL LOBES. 4. LEFT-SIDED SINUSITIS. ED physician has reviewed this imaging report. - EKG 13:21 Cardiac Rate: Other Rate - Atrial Fibrillation at 73 bpm EKG Rhythm: Atrial Fibrillation Summary of EKG Findings: Atrial Fibrillation, LAD, no change from 01/23/18. Course/Dx - Course Course Of Treatment: Mr. Koehler was brought in by ambulance to the emergency department at the behest of his . He got up normally this morning but in the shower he began to seem confused and weak to her. He had a difficult time standing up. In the emergency department he certainly looked quite weak and pale but his vitals were stable. On his workup he was found to have some mild CHF but also mild dehydration. His troponin was in the indeterminate range which is new for him. I asked the hospitalist to evaluate him him to consider admission. - Diagnoses Provider Diagnoses: CHF (congestive heart failure) - Physician Notifications Discussed Care Of Patient With: Davis Boucher Time Discussed With Above Provider: 17:15 Instructed by Provider To: Admit As Inpatient Discharge - Sign-Out/Discharge Documenting (check all that apply): Patient Departure - admit - Discharge Plan Condition: Fair Disposition: ADMITTED TO [facility] Referrals: Markos Woods MD [Primary Care Provider] - - Billing Disposition and Condition Condition: FAIR Disposition: Admitted to [facility] - Attestation Statements Document Initiated by Marita: Yes Documenting Scribe: Alex Singh Provider For Whom Marita is Documenting (Include Credential): Deven Ojeda MD Scribe Attestation: I, Alex Singh, scribed for Deven Ojeda MD on 05/15/18 at 1745. Scribe Documentation Reviewed: Yes Provider Attestation: The documentation as recorded by the Alex meredith accurately reflects the service I personally performed and the decisions made by me, Deven Ojeda MD Status of Scribe Document: Viewed
[2018-05-15 13:33] LABS: Hematocrit 32 % (42-52); Hemoglobin 10.5 g/dl (14.0-18.0); Mean Corpuscular HGB Conc 33 g/dl (31-36); Mean Corpuscular Hemoglobin 29 pg (27-31); Mean Corpuscular Volume 88 fL (80-94); Platelet Count 169 10^3/ul (150-450); Red Blood Count 3.66 10^6/ul (4.00-5.40); Red Cell Distribution Width 16 % (10.5-15); White Blood Count 27.1 10^3/ul (3.5-10.8)
[2018-05-15 13:47] LABS: EGFR Non-African American 77.8 (>60)
[2018-05-15 13:52] LABS: INR 1.08 (0.77-1.02)
[2018-05-15 14:09] LABS: ABS Basophils 0.1 10^3/ul (0-0.2); ABS Eosinophils 0.5 10^3/ul (0-0.6); ABS Lymphocytes 17.7 10^3/ul (1.0-4.8); ABS Monocytes 1.1 10^3/ul (0-0.8); ABS Neutrophils 7.3 10^3/ul (1.5-7.7); ABS Nucleated RBC 0.1 10^3/ul; Eosinophil % 1.9 %; Lymphocyte % 66.2 %; Nucleated Red Blood Cells % 0.2
[2018-05-15] MEDS ORDERED: NS 0.9% 1000 ML* 1,000 ML IV ONE (14:36)
[2018-05-15] MEDS ORDERED: Levofloxacin 750 MG IVPREMIX(* 750 MG/150 ML BAG IVPB ONE (14:36)
[2018-05-15 18:41] LABS: Urine Appearance Clear; Urine Blood 2+ (Negative); Urine Color Yellow; Urine Ketones Negative (Negative); Urine Protein Negative (Negative); Urine Red Blood Cell 3+(>10/hpf) (Absent); Urine Specific Gravity 1.017 (1.010-1.030); Urine Urobilinogen Positive (Negative); Urine White Blood Cell Trace(0-5/hpf) (Absent)
[2018-05-15] MEDS: Heparin VIAL(*) 5000 UNITS/ML VIAL (FIVE THOUSAND) SUBCUT SCH (21:07)
[2018-05-15] MEDS: Ticagrelor* 90 MG TAB PO SCH (21:07)
--- NOTE | 2018-05-15 23:21 | HP ---
HISTORY AND PHYSICAL: DATE OF ADMISSION: 05/15/18. PRIMARY CARE PROVIDER: Dr. Markos Woods. CHIEF COMPLAINT: The patient presented to the emergency room after his noted that he has been getting more lethargic and confused, having difficulty ambulating, decreased strength generalized and disoriented, started around 6:30 earlier today and progressively got worse over the day. There was no obvious unilateral weakness or any difficulty in his speech per se. Just overall being coherent and weakness. Therefore, she brought him to the emergency room for further evaluation. HISTORY OF PRESENT ILLNESS: In the emergency room, the patient was noted to have temperature of 100.5 and white count slightly higher than the baseline of 27,000; normally he is in the mid teens. He had a CT scan of the head, did not show any acute infarct. Therefore, medicine service was consulted for altered mental status. The patient was seen and evaluated by me. History was obtained as above. PAST MEDICAL HISTORY: 1. History of coronary artery disease, status post CABG in 1996. 2. Carotid artery stent placement, February 2018. 3. Chronic atrial fibrillation. 4. History of CLL. 5. Chemotherapy-induced peripheral neuropathy. 6. 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 7. Recent hospitalization for CVA at [facility]. 8. History of malignant melanoma of the skin. 9. Hyperlipidemia. 10. Hypertension. ALLERGIES: Has a rash from PLAVIX. Could not tolerate ZOCOR. He got a cough from [employer]. SOCIAL HISTORY: Nonsmoker, nondrinker. Lives with his . REVIEW OF SYSTEMS: As per HPI. Otherwise, unremarkable. PHYSICAL EXAMINATION GENERAL: He is awake, alert. Has some minor expressive aphasia, is confirmed with his and granddaughter and that usually is his baseline. He is oriented to place and person, not to time. Able to follow simple command. He is moving upper and lower extremities x4. He has a good grasp in both hands. No facial droops. VITAL SIGNS: Temperature 100.5, pulse 69, respiratory rate 21, saturation 98% on room air, blood pressure 135/73. LUNGS: Good air flow. I could not hear any rhonchi, crackles. Slightly diminished in the right base. CARDIOVASCULAR: S1 and S2. Irregularly irregular. Could not appreciate any murmur. ABDOMEN: Positive bowel sounds. Soft, nontender, nondistended. GENITALIA: Deferred. RECTAL: Deferred. EXTREMITIES: No pedal edema. Moving upper and lower extremities. No focal deficits. NEUROLOGIC: Small expressive aphasia which is old. DIAGNOSTIC STUDIES AND LABORATORY DATA: CBC shows white count 27,000, hemoglobin 10, hematocrit 32, platelets 169. INR 1.08. Chemistry shows sodium 130, potassium 4.5, chloride 99. BUN 26 and creatinine 0.9. Lactic acid 0.6. Troponin 0.05. CRP 19.3. BNP 1197. Urinalysis, negative ketone, 2+ blood, negative leuk esterase, trace wbc, absent bacteria. Chest x-ray shows no acute disease with mild pulmonary congestive changes. Brain CT shows no evidence of acute intracranial abnormality, left-sided sinusitis. Findings consisting with an old infarct to the left frontal and the left parietal lobe, atrophy with severe chronic vascular ischemic disease. EKG shows atrial fibrillation, rate 73. IMPRESSION: This is an 88-year-old male who was brought in by his secondary to generalized weakness, malaise, with low-grade fever, will be admitted with altered mental status. Etiology could be: 1. Possible TIA. 2. Occult infection. Follow up with blood culture and urine culture despite negative UA. 3. Repeat chest x-ray in 48 hours to rule out any possible infiltrate. I am not concerned about congestive changes as clinically he appears to be dry. 4. History of A-Fib. 5. Hyperlipidemia. 6. History of CVA. 7. History of carotid disease. PLAN/RECOMMENDATIONS: The patient will be admitted to [facility] for ACS rule out given his positive troponin. We will continue his aspirin and Brilinta. Pending repeat troponin, we will decide whether or not to put him on heparin and cardiology consult, but for now, with no EKG changes, no chest pain, he is possibly mildly . For his altered mental status which probably as mentioned above could be secondary to TIA. He is already on aspirin, Plavix, and statins. Symptoms started around 6:30 in the morning which is well past 3 hours. Therefore, MRI at this time with negative CT brain for bleed will not change the management. We will defer to reassess him in the morning to see if he reached baseline. We will keep him on tele. We will decide if we need to obtain echocardiogram in the morning. Fever, leukocytosis. Probably secondary to his CLL, but is slightly higher than the baseline. Follow up the blood cultures. I personally do suspect small right middle lobe infiltrate, nonetheless official report did not show any evidence of infiltrate. I will place him on Levaquin pending his workup and may repeat chest x- ray in 48 hours. [id number]/[facility] #: [id number] JERAD
[2018-05-15] MEDS: NS 0.9% 1000 ML* 1,000 ML IV SCH (23:33)
[2018-05-16] MEDS: Heparin VIAL(*) 5000 UNITS/ML VIAL (FIVE THOUSAND) SUBCUT SCH ×3 (04:59→20:32)
[2018-05-16] MEDS: Omeprazole CAP* 20 MG PO SCH (04:59)
[2018-05-16 05:47] LABS: Hematocrit 29 % (42-52); Hemoglobin 9.8 g/dl (14.0-18.0); Mean Corpuscular HGB Conc 34 g/dl (31-36); Mean Corpuscular Hemoglobin 29 pg (27-31); Mean Corpuscular Volume 87 fL (80-94); Mean Platelet Volume 6.9 fL (7.4-10.4); Platelet Count 132 10^3/ul (150-450); Red Blood Count 3.35 10^6/ul (4.00-5.40); Red Cell Distribution Width 16 % (10.5-15)
[2018-05-16 06:10] LABS: EGFR Non-African American 92.8 (>60)
[2018-05-16 07:09] LABS: ABS Basophils 0.1 10^3/ul (0-0.2); ABS Eosinophils 0.7 10^3/ul (0-0.6); ABS Lymphocytes 12.3 10^3/ul (1.0-4.8); ABS Monocytes 0.7 10^3/ul (0-0.8); ABS Neutrophils 3.3 10^3/ul (1.5-7.7); ABS Nucleated RBC 0 10^3/ul; Nucleated Red Blood Cells % 0.2
[2018-05-16 07:10] LABS: Monocytes % 7 %
[2018-05-16] MEDS: Ticagrelor* 90 MG TAB PO SCH ×2 (08:26→20:31)
[2018-05-16] MEDS: Atorvastatin* 40 MG TAB PO SCH (08:26)
[2018-05-16] MEDS: Aspirin 81 mg CHEW TAB* 81 MG TAB.CHEW PO SCH (08:26)
[2018-05-16] MEDS: NS 0.9% 1000 ML* 1,000 ML IV SCH (12:28)
[2018-05-16] MEDS ORDERED: Levofloxacin 500 MG IVPREMIX(* 500 MG/100 ML BAG IVPB SCH (15:00)
--- NOTE | 2018-05-16 15:19 | PN ---
Subjective Date of Service: 05/16/18 Interval History: Patient seen today. awake, more alert. at bedside endorse improvement in his mental status. PT did see patient. Note appreciated. Ambulated 200 feet with walker. Will recommend ambulate TID as recommended with PT Past Medical History: Unchanged from Admission Objective Active Medications: Aspirin (Aspirin 81 Mg Chew Tab*) 81 mg PO QAM [facility] Last Admin: 05/16/18 08:26 Dose: 81 mg Atorvastatin Calcium (Lipitor*) 40 mg PO DAILY [facility] Last Admin: 05/16/18 08:26 Dose: 40 mg Heparin Sodium (Porcine) (Heparin Vial(*)) 5,000 units SUBCUT Q8HR [facility] Last Admin: 05/16/18 14:10 Dose: 5,000 units Sodium Chloride (Ns 0.9% 1000 Ml*) 1,000 mls @ 100 mls/hr IV .per rate [facility] Stop: 05/16/18 18:44 Last Admin: 05/16/18 12:28 Dose: 100 mls/hr Levofloxacin/Dextrose (Levaquin 500 Mg Ivpremix(*)) 500 mg in 100 mls @ 100 mls /hr IVPB Q24H [facility] Last Admin: 05/16/18 14:34 Dose: 100 mls/hr Omeprazole (Prilosec Cap*) 20 mg PO DAILY@0600 [facility] Last Admin: 05/16/18 04:59 Dose: 20 mg Ticagrelor (Brilinta*) 90 mg PO BID [facility] Last Admin: 05/16/18 08:26 Dose: 90 mg Vital Signs - 8 hr 05/16/18 05/16/18 05/16/18 07:31 08:28 11:24 Temperature 97.8 F 97.8 F Pulse Rate 83 62 Respiratory 14 20 20 Rate Blood Pressure 142/58 127/58 (mmHg) O2 Sat by Pulse 100 100 Oximetry Oxygen Devices in Use Now: None Appearance: awake, mild pallor Eyes: No Scleral Icterus, PERRLA, - - EOMI Ears/Nose/Mouth/Throat: NL Teeth, Lips, Gums, Clear Oropharnyx, Mucous Membranes Moist Neck: NL Appearance and Movements; NL JVP, Trachea Midline Respiratory: Symmetrical Chest Expansion and Respiratory Effort, Clear to Auscultation Cardiovascular: NL Sounds; No Murmurs; No JVD, No Edema, - - irregularly irregular Abdominal: NL Sounds; No Tenderness; No Distention Extremities: No Edema Skin: No Rash or Ulcers Neurological: - - disoriented to time. and place. Able to follows command Result Diagrams: 05/16/18 05:32 05/16/18 05:32 Assess/Plan/Problems-Billing Assessment: 88 year old male history of CLL, CVA, Afib, presented to ED by his for increase confusion and unsteadiness, found with elevated WBC (27K) baseline 17K , questionable Infiltrate - Patient Problems (1) Confusion Current Visit: Yes Status: Acute Code(s): R41.0 - DISORIENTATION, UNSPECIFIED SNOMED Code(s): 072386710 Comment: - I suspect secondary to dehydration triggered by mild UIT and questionable RML infilrate on my read. Associated with Fever and rise in his WBC from baseline - Improving on Levaquin Day # 2 - I will check repeat CXR in am for comparison and will repeat CT head in am for comparison to rule out subacute CVA (he can not have MRI) (2) Leukocytosis Current Visit: Yes Status: Acute Code(s): D72.829 - ELEVATED WHITE BLOOD CELL COUNT, UNSPECIFIED SNOMED Code(s): 256823476 Comment: - [place] [address] [address] on admission - I suspect occult infection (awaiting UC and BC) - Will repeat CXR in am for comparison (3) Carotid artery stenosis Current Visit: No Status: Acute Code(s): I65.29 - OCCLUSION AND STENOSIS OF UNSPECIFIED CAROTID ARTERY SNOMED Code(s): 66104803 Comment: - s/p CEA - Continue Aspirin, atorvastatin, Brinlinta (4) Atrial fibrillation Current Visit: Yes Status: Acute Code(s): I48.91 - UNSPECIFIED ATRIAL FIBRILLATION SNOMED Code(s): 33599940 Comment: - S/p Watcham procedure - Aspirin, Brilinta, he is not requiring rate controlling drug (5) CLL (chronic lymphocytic leukemia) Current Visit: Yes Status: Chronic Code(s): C91.90 - LYMPHOID LEUKEMIA, UNSPECIFIED NOT HAVING ACHIEVED REMISSION SNOMED Code(s): 97674380 Comment: - Chronic (6) DVT prophylaxis Current Visit: Yes Status: Acute Code(s): FFV8024 - SNOMED Code(s): 749349946 Comment: - Heparin 5000 SQ Q8hr
[2018-05-17 05:17] LABS: Hematocrit 29 % (42-52); Hemoglobin 9.6 g/dl (14.0-18.0); Mean Corpuscular HGB Conc 33 g/dl (31-36); Mean Corpuscular Hemoglobin 29 pg (27-31); Mean Corpuscular Volume 87 fL (80-94); Mean Platelet Volume 7.2 fL (7.4-10.4); Platelet Count 131 10^3/ul (150-450); Red Cell Distribution Width 15 % (10.5-15); White Blood Count 18.1 10^3/ul (3.5-10.8)
[2018-05-17 05:33] LABS: EGFR Non-African American 91.4 (>60)
[2018-05-17] MEDS: Omeprazole CAP* 20 MG PO SCH (05:34)
[2018-05-17] MEDS: Heparin VIAL(*) 5000 UNITS/ML VIAL (FIVE THOUSAND) SUBCUT SCH ×2 (05:36→13:40)
[2018-05-17 07:50] VITALS: BP 135/70
[2018-05-17] MEDS: Atorvastatin* 40 MG TAB PO SCH (08:21)
[2018-05-17] MEDS: Ticagrelor* 90 MG TAB PO SCH (08:21)
[2018-05-17] MEDS: Aspirin 81 mg CHEW TAB* 81 MG TAB.CHEW PO SCH (08:21)
[2018-05-17 08:55] LABS: ABS Basophils 0 10^3/ul (0-0.2); ABS Eosinophils 1.2 10^3/ul (0-0.6); ABS Lymphocytes 12.9 10^3/ul (1.0-4.8); ABS Monocytes 0.7 10^3/ul (0-0.8); ABS Neutrophils 3.2 10^3/ul (1.5-7.7); ABS Nucleated RBC 0 10^3/ul; Eosinophil % 6.8 %; Lymphocyte % 71.4 %; Nucleated Red Blood Cells % 0.1
--- NOTE | 2018-05-17 11:22 | PN ---
Subjective Date of Service: 05/17/18 Interval History: Patient seen, in chair. feeding himself. doing well. no acute distress. Taking po. remains confused but much clearer than his admission and as per my discussion with his yesterday, he is doing much better. PT input appreciated. NO acute interventions required Past Medical History: Unchanged from Admission Objective Active Medications: Aspirin (Aspirin 81 Mg Chew Tab*) 81 mg PO QAM [facility] Last Admin: 05/17/18 08:21 Dose: 81 mg Atorvastatin Calcium (Lipitor*) 40 mg PO DAILY [facility] Last Admin: 05/17/18 08:21 Dose: 40 mg Heparin Sodium (Porcine) (Heparin Vial(*)) 5,000 units SUBCUT Q8HR [facility] Last Admin: 05/17/18 05:36 Dose: 5,000 units Levofloxacin/Dextrose (Levaquin 500 Mg Ivpremix(*)) 500 mg in 100 mls @ 100 mls /hr IVPB Q24H [facility] Last Admin: 05/16/18 14:34 Dose: 100 mls/hr Omeprazole (Prilosec Cap*) 20 mg PO DAILY@0600 [facility] Last Admin: 05/17/18 05:34 Dose: 20 mg Ticagrelor (Brilinta*) 90 mg PO BID [facility] Last Admin: 05/17/18 08:21 Dose: 90 mg Vital Signs - 8 hr 05/17/18 05/17/18 05/17/18 04:15 07:15 07:33 Temperature 98.1 F 97.9 F Pulse Rate 63 70 Respiratory 18 20 20 Rate Blood Pressure 121/57 135/70 (mmHg) O2 Sat by Pulse 99 97 Oximetry Oxygen Devices in Use Now: None Appearance: Awake, alert... remain confused to time and place Eyes: No Scleral Icterus, - - EOMI Ears/Nose/Mouth/Throat: NL Teeth, Lips, Gums, Mucous Membranes Moist Neck: NL Appearance and Movements; NL JVP Respiratory: Symmetrical Chest Expansion and Respiratory Effort, Clear to Auscultation Cardiovascular: NL Sounds; No Murmurs; No JVD, - - irregularly irregular Abdominal: NL Sounds; No Tenderness; No Distention Extremities: No Edema, No Clubbing, Cyanosis Skin: No Rash or Ulcers Result Diagrams: 05/17/18 05:02 05/17/18 05:02 Microbiology and Other Data: Microbiology 05/15/18 18:25 Aerobic Blood Culture - Preliminary Blood Venous No Growth Day 1 Anaerobic Blood Culture - Preliminary No Growth Day 1 05/15/18 18:33 Aerobic Blood Culture - Preliminary Blood Venous No Growth Day 1 Anaerobic Blood Culture - Preliminary No Growth Day 1 05/15/18 18:22 Urine Culture - Final Urine No Growth (<1,000 CFU/mL) Assess/Plan/Problems-Billing Assessment: 88 year old male history of CLL, CVA, Afib, presented to ED by his for increase confusion and unsteadiness, found with elevated WBC (27K) baseline 17K , questionable Infiltrate - Patient Problems (1) Bronchial pneumonia Current Visit: Yes Status: Acute Code(s): J18.0 - BRONCHOPNEUMONIA, UNSPECIFIED ORGANISM SNOMED Code(s): 142001142 Comment: - Given his low grade fever on admission and associated with CXR finding of infiltrate density on his RML, improved with levaquin and improved mentally and WBC with the antibiotic, I will continue levaquin treatment and discharge home on po levaquin with 4 days to complete 7 days total course treatment (2) Confusion Current Visit: Yes Status: Acute Code(s): R41.0 - DISORIENTATION, UNSPECIFIED SNOMED Code(s): 607603217 Comment: - I suspect secondary to dehydration triggered by mild UTI and questionable RML infilrate on my read. Associated with Fever and rise in his WBC from baseline - Improving on Levaquin Day # 3 - His repeat CXR today improved compared to his admission. - Given his significant improvement with the treatment of his pneumoniae ( bronchial pneumoniae) I will not repeat CT head (3) Leukocytosis Current Visit: Yes Status: Acute Code(s): D72.829 - ELEVATED WHITE BLOOD CELL COUNT, UNSPECIFIED SNOMED Code(s): 227324487 Comment: - [place] [address] [address] on admission - giving his CXR changes in two days, I suspect it was bronchial penumanie. Will complete levaquin 500 mg daily for 4 more days (4) Carotid artery stenosis Current Visit: No Status: Acute Code(s): I65.29 - OCCLUSION AND STENOSIS OF UNSPECIFIED CAROTID ARTERY SNOMED Code(s): 09771292 Comment: - s/p CEA - Continue Aspirin, atorvastatin, Brinlinta (5) Atrial fibrillation Current Visit: Yes Status: Acute Code(s): I48.91 - UNSPECIFIED ATRIAL FIBRILLATION SNOMED Code(s): 05657221 Comment: - S/p Watcham procedure - Aspirin, Brilinta, he is not requiring rate controlling drug (6) CLL (chronic lymphocytic leukemia) Current Visit: Yes Status: Chronic Code(s): C91.90 - LYMPHOID LEUKEMIA, UNSPECIFIED NOT HAVING ACHIEVED REMISSION SNOMED Code(s): 91018009 Comment: - Chronic (7) DVT prophylaxis Current Visit: Yes Status: Acute Code(s): PKA9781 - SNOMED Code(s): 963738648 Comment: - Heparin 5000 SQ Q8hr
--- NOTE | 2018-05-18 03:24 | DS ---
AMENDED REPORT NOW INCLUDES DATE OF DISCHARGE CC: Dr. Markos Woods * DISCHARGE SUMMARY: DATE OF ADMISSION: DATE OF DISCHARGE: 05/17/18 PRIMARY CARE PROVIDER: Dr. Markos Woods. FINAL DISCHARGE DIAGNOSES: 1. Bronchial pneumonia. 2. Atrial fibrillation. 3. Confusion. HOSPITAL COURSE: The patient presented to [facility] on 05/15/18 via his as she noticed that he was declining throughout the day, acting less himself, more confused, less active, and she was concerned because he was coughing for few weeks. In the emergency room, he was seen and evaluated. He has a baseline dementia and confusion at baseline with a prior history of stroke. Nonetheless, he was cooperative, verbal follow commands, but as mentioned he is confused at baseline. His ER workup revealed white count of 27, 000 with underlying history of CLL, which is baseline usually for the past several times within our system averaging between 15,000 to 16,000, which make the 27,000 slightly above his normal baseline. At the same time, he had low- grade temperature in the emergency room of 100.5. We were called to address the patient for possible confusion and dehydration. By the time I did see and evaluate the patient, he was already getting his Levaquin infusion and none of his cultures has been obtained yet. Unfortunately, we were obligated to taking consideration that his cultures could have been partially treated. He was admitted to the floor for confusion and TIA given his underlying history of stroke. Clinically based on the assessment with cough, chest x-ray finding, and fever and white count, I elected to admit him for bronchial pneumonia and I maintained him on Levaquin intravenously. I followed him throughout the hospital course for the 2 days he was in the hospital. He significantly shows improvement over the next day in the 24 hours. He was able to get out of bed, self assist with self feed, ambulating out of the room to the hallway, and hence I discontinued his IV fluids, and I advanced his diet to cardiac diet. He was maintained on IV antibiotic and a repeat chest x-ray today revealed significant improvement in his chest x-ray finding with some mild remnant in the right hilar and right middle lobe. No obvious or gross consolidation was noted. His white count did improve back to a baseline of 17,000. He remained afebrile and he was actually ambulating and as per his report to me he is back at baseline in term of mentation. Therefore, I elected to transition to oral Levaquin and discharged the patient complete at least 7 days course of antibiotic. He was seen, evaluated, and deemed stable for discharge. PHYSICAL EXAMINATION: His temperature 97.9, pulse 62, respiratory rate 20, satting 100% on room air, pressure 135/70. He is sitting conversing, slightly confused to place and person, but able to follow simple command, pleasant, in no apparent distress. General: He is awake, alert, slightly with underlying chronic anemia. Extraocular muscle intact. Anicteric sclerae. He has good air flow bilateral with diminished base slightly at the right base. No JVD. Good heart sounds. Irregularly irregular with underlying AFib. Abdomen: Soft and nontender. DISCHARGE INSTRUCTIONS: For his bronchial pneumonia, I did recommend to complete oral Levaquin for 4 more days. I will complete a total of 7 days treatment. Resume his home medication as per home, which will be outlined below. Follow up with his primary care in 1 to 2 weeks and if he develops any fever, cough, congestion, altered mental status, to return to the emergency room or seek immediate medical attention. DISCHARGE MEDICATIONS: 1. Levaquin 500 mg daily for 4 more days. Continued home medication as follows: 1. Brilinta 90 mg twice a day. 2. Atorvastatin 40 mg daily. 3. Losartan 50 mg daily. 4. Aspirin 81 mg daily. DISCHARGE INSTRUCTION: Follow up with primary care in 1 to 2 weeks. [id number]/[facility] #: [id number] MTDD
== END 2018-05-17 14:50 | disposition home or self-care (01) | DRG 194 ==
LOC: ED 11:46 → MEDTELE 18:34
PROVIDERS: ADMIT Internal Medicine; ATTEND Internal Medicine
DX: J18.0 Bronchopneumonia, unspecified organism (principal); N39.0 Urinary tract infection, site not specified; C91.10 Chronic lymphocytic leukemia of B-cell type not having achieved remission; I25.10 Atherosclerotic heart disease of native coronary artery without angina pectoris; I48.2 Chronic atrial fibrillation; G62.0 Drug-induced polyneuropathy; T50.905A Adverse effect of unspecified drugs, medicaments and biological substances, initial encounter; E78.5 Hyperlipidemia, unspecified; Z96.643 Presence of artificial hip joint, bilateral; Z96.653 Presence of artificial knee joint, bilateral; I45.10 Unspecified right bundle-branch block; I25.5 Ischemic cardiomyopathy; N40.1 Benign prostatic hyperplasia with lower urinary tract symptoms; M19.90 Unspecified osteoarthritis, unspecified site; I65.29 Occlusion and stenosis of unspecified carotid artery; I11.0 Hypertensive heart disease with heart failure; I50.9 Heart failure, unspecified; E86.0 Dehydration; R41.0 Disorientation, unspecified; F03.90 Unspecified dementia, unspecified severity, without behavioral disturbance, psychotic disturbance, mood disturbance, and anxiety; Z79.02 Long term (current) use of antithrombotics/antiplatelets; Z86.73 Personal history of transient ischemic attack (TIA), and cerebral infarction without residual deficits; Y92.9 Unspecified place or not applicable; Z95.1 Presence of aortocoronary bypass graft; Z85.79 Personal history of other malignant neoplasms of lymphoid, hematopoietic and related tissues; Z85.820 Personal history of malignant melanoma of skin; Z88.8 Allergy status to other drugs, medicaments and biological substances; Z95.0 Presence of cardiac pacemaker; Z79.82 Long term (current) use of aspirin
CPT/HCPCS: 36415; 70450; 71046; 80048; 80053; 81003; 81015; 83605; 83735; 83880; 84100; 84443; 84484; 85025; 85060; 85610; 86140; 87040; 87086; 93005; 99284; A9270-GY; G8978-GP-CI; G8979-GP-CI; G8980-GP-CI; G8987-GO-CJ; G8988-GO-CI; J1644; J1956

== ENCOUNTER 2018-06-11 22:31 | Inpatient (IN) | payer MEDICARE ==
[2018-06-11] MEDS ORDERED: NS 0.9% 1000 ML** 1,000 ML IV.FLUID IV ONE (22:52)
--- NOTE | 2018-06-11 22:53 | ED ---
GI/ HPI - HPI Summary HPI Summary: An 88 y/o M brought in by ambulance presents to ED with hematemesis onset approximately 1999. The vomit was described as bloody streaks, mucous, and stomach contents. Per , the patient started being confused around 1730. Associated sx: tremulous, cough, fever. Pt had a recent hospitalization for PNA. PMHx: Stroke (residual speech and walking difficulty), melanoma CA. 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 Onset/Duration: Started Hours Ago, Still Present Timing: Constant Severity: Mild Current Severity: Mild Pain Intensity: 0 - out of 10 Associated Signs and Symptoms: Positive: Hematemesis, Fever, Cough, Other: - pos : confusion, tremors, - Additional Pertinent History Primary Care Physician: LESLEY - Allergy/Home Medications Allergies/Adverse Reactions: Allergies Allergy/AdvReac Type Severity Reaction Status Date / Time clopidogrel [From Plavix] Allergy Rash Verified 01/23/18 12:07 PMH/Surg Hx/FS Hx/Imm Hx Previously Healthy: No Cardiovascular History: Reports: Hx Hypercholesterolemia, Hx Hypertension, Hx Pacemaker/ICD, Other Cardiovascular Problems/Disorders - cardiac dysrhytmia, incomplete right BBB, ischemic cardiomyopathy Respiratory History: Reports: Other Respiratory Problems/Disorders - acute bronchitis 06/11/12 GI History: Reports: Other GI Disorders - dilation of esophageal stricture History: Reports: Other Problems/Disorders - prostate hypertrophy with urinary obstruction Musculoskeletal History: Reports: Hx Arthritis, Other Musculoskeletal History - bilateral TKR, bilateral rotator cuff repairs, partial r hip replacement Sensory History: Reports: Hx Contacts or Glasses - glasses not with patient, Hx Hearing Problem Denies: Hx Hearing Aid Opthamlomology History: Reports: Hx Contacts or Glasses - glasses not with patient Neurological History: Reports: Other Neuro Impairments/Disorders - chemo induced peripheral neuropathy - Cancer History Cancer Type, Location and Year: 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 r rotator cuff repair 07/11/98, l rotator cuff repair 08/12/98, bilateral total knee replacements 06/19/94 Infectious Disease History: No Infectious Disease History: Reports: Hx Clostridium Difficile - 09/24/14 Denies: Traveled Outside the [place] in Last 30 Days - Family History Known Family History: Negative: Blood Disorder - Social History Occupation: Retired Lives: With Family Alcohol Use: None Substance Use Type: Reports: None Smoking Status (MU): Never Smoked Tobacco Have You Smoked in the Last Year: No Review of Systems Positive: Fever, Other - tremulous Positive: Cough Positive: Vomiting - with blood Neurological: Other - pos: confusion All Other Systems Reviewed And Are Negative: Yes Physical Exam - Summary Physical Exam Summary: Appearance: Febrile, Well-nourished, lying in bed comfortably Skin: Warm, dry, no obvious rash Eyes: sclera anicteric, no conjunctival pallor ENT: mucous membranes moist, pharynx appears normal Neck: Supple, nontender Respiratory: Mildly tachypneic, scattered rhonchi, bronchial breath sounds on L Cardiovascular: Notable tachycardia ranging 100-105 bpm; Normal S1, S2. No murmurs. Normal distal pulses in tibial and radial bilaterally. Abdomen: Soft, nontender, normal active bowel sounds present Musculoskeletal: Normal, Strength/ROM Intact Neurological: A&Ox3, awake and alert, mentation is normal, speech is fluent and appropriate Psychiatric: affect is normal, does not appear anxious or depressed Triage Information Reviewed: Yes Vital Signs On Initial Exam: Initial Vitals Temp Pulse Resp BP Pulse Ox 101.5 F 100 20 143/75 90 06/11/18 22:35 06/11/18 22:35 06/11/18 22:35 06/11/18 22:35 06/11/18 22:35 Vital Signs Reviewed: Yes Diagnostics - Vital Signs Vital Signs Temp Pulse Resp BP Pulse Ox 06/11/18 22:35 101.5 F 100 20 143/75 90 - Laboratory Result Diagrams: 06/11/18 23:28 06/11/18 23:28 Lab Statement: Any lab studies that have been ordered have been reviewed, and results considered in the medical decision making process. - Radiology CXR Radiology Interpretation Completed By: ED Physician Summary of Radiographic Findings: Bilat lower lobe infiltrate, new compared to films from last month - EKG 2311 Cardiac Rate: NL - 94 bpm EKG Rhythm: Atrial Fibrillation EKG Comparison: No Significant Change - from 05/15/18. Summary of EKG Findings: old anteroseptal infarct; abnormal repolarization in lateral leads GIGU Course/Dx - Course Course Of Treatment: An 88 y/o M presents to ED after episodes of hematemesis onset approximately 1999. Associated sx: confusion, tremors, fever, cough. Pt was recently admitted for PNA. CXR shows bilateral lower lobe infiltrate, which is new compared to films from last month. EKG shows a-fib, it is similar to the EKG from 05/15/18. Flu tests are negative. Lab work shows trop: 0.34. Consulted with Dr. Serrato, hospitalist, who will admit pt. - Diagnoses Provider Diagnoses: PNA (pneumonia), CLL (chronic lymphocytic leukemia), Leukocytosis - Physician Notifications Discussed Care Of Patient With: Jenn Serrato - hospitalist Time Discussed With Above Provider: 02:18 Instructed by Provider To: Admit As Inpatient Discharge - Sign-Out/Discharge Documenting (check all that apply): Patient Departure - ADMIT - Discharge Plan Condition: Guarded Disposition: ADMITTED TO [facility] - Billing Disposition and Condition Condition: GUARDED Disposition: Admitted to [facility] - Attestation Statements Document Initiated by Scribe: Yes Documenting Scribe: Pat Murray Provider For Whom Scribe is Documenting (Include Credential): Dr. Deven Parra MD Scribe Attestation: Pat Chappell scribed for Dr. Deven Parra MD on 06/12/18 at 0319. Scribe Documentation Reviewed: Yes Provider Attestation: The documentation as recorded by the Pat meredith accurately reflects the service I personally performed and the decisions made by , Dr. Deven Parra MD Status of Scribe Document: Viewed
[2018-06-11] MEDS ORDERED: Acetaminophen TAB* 325 MG PO ONE (22:55)
[2018-06-11] MEDS ORDERED: Ondansetron INJ* 2 MG/ML VIAL IV ONE (22:56)
[2018-06-11 23:38] LABS: Hematocrit 30 % (42-52); Hemoglobin 9.9 g/dl (14.0-18.0); Mean Corpuscular HGB Conc 33 g/dl (31-36); Mean Corpuscular Hemoglobin 28 pg (27-31); Mean Corpuscular Volume 85 fL (80-94); Mean Platelet Volume 7.1 fL (7.4-10.4); Platelet Count 138 10^3/ul (150-450); Red Blood Count 3.51 10^6/ul (4.00-5.40); Red Cell Distribution Width 16 % (10.5-15); White Blood Count 28.1 10^3/ul (3.5-10.8)
[2018-06-11 23:49] LABS: Activated Partial Thrombo Time 27.1 seconds (26.0-36.3); INR 1.05 (0.77-1.02)
[2018-06-11 23:55] LABS: Albumin 3.7 g/dL (3.2-5.2); Albumin/Globulin Ratio 1.9 (1-3); BUN/Creatinine Ratio 27.2 (8-20); Calcium 8.7 mg/dL (8.6-10.3); EGFR African American 94.2 (>60); EGFR Non-African American 77.8 (>60); Potassium 4.6 mmol/L (3.5-5.0); Total Protein 5.7 g/dL (6.4-8.9)
[2018-06-12 00:01] LABS: Influenza A Molecular NEGATIVE (Negative); Influenza B Molecular NEGATIVE (Negative)
[2018-06-12 00:02] LABS: Troponin I 0.34 ng/mL (<0.04)
[2018-06-12] MEDS ORDERED: Vancomycin(*) 1,000 MG in NS 0.9% 250 ML* 250 ML IVPB ONE (00:03)
[2018-06-12] MEDS ORDERED: Cefepime(*) 1 GM in NS 0.9% 50 ML* 50 ML IVPB ONE (00:03)
[2018-06-12] MEDS ORDERED: NS 0.9% 50 ML* 50 ML ONE (00:14)
[2018-06-12 00:16] LABS: ABS Basophils 0.1 10^3/ul (0-0.2); ABS Eosinophils 0.2 10^3/ul (0-0.6); ABS Lymphocytes 18.6 10^3/ul (1.0-4.8); ABS Monocytes 0.7 10^3/ul (0-0.8); ABS Neutrophils 8.5 10^3/ul (1.5-7.7); ABS Nucleated RBC 0 10^3/ul; Eosinophil % 0.7 %; Lymphocyte % 66.1 %; Nucleated Red Blood Cells % 0.1
[2018-06-12 00:38] LABS: Acanthocytes 1+
[2018-06-12] MEDS ORDERED: NS 0.9% 250 ML* 250 ML ONE (01:06)
[2018-06-12] MEDS ORDERED: Magnesium Hydroxide LIQ* 30 ML UDC PO PRN (02:30)
[2018-06-12] MEDS ORDERED: Senna TAB PO PRN (02:30)
[2018-06-12] MEDS ORDERED: Ondansetron INJ* 2 MG/ML VIAL IV PRN (02:30)
[2018-06-12] MEDS ORDERED: Docusate CAP* 100 MG PO PRN (02:30)
[2018-06-12] MEDS ORDERED: Pantoprazole IV* 40 MG IV ONE (02:41)
[2018-06-12 02:53] LABS: C Reactive Protein 8.59 mg/L (<8.01)
[2018-06-12 04:08] LABS: Hematocrit 27 % (42-52); Hemoglobin 8.7 g/dl (14.0-18.0); Mean Corpuscular HGB Conc 33 g/dl (31-36); Mean Corpuscular Hemoglobin 28 pg (27-31); Mean Corpuscular Volume 86 fL (80-94); Mean Platelet Volume 7.4 fL (7.4-10.4); Platelet Count 105 10^3/ul (150-450); Red Blood Count 3.08 10^6/ul (4.00-5.40); Red Cell Distribution Width 16 % (10.5-15); White Blood Count 20.4 10^3/ul (3.5-10.8)
[2018-06-12 04:23] LABS: BUN/Creatinine Ratio 28.6 (8-20); Calcium 7.9 mg/dL (8.6-10.3); EGFR African American 104.6 (>60); EGFR Non-African American 86.4 (>60); HDL Cholesterol 39.4 mg/dL; Potassium 4.4 mmol/L (3.5-5.0)
[2018-06-12 04:29] LABS: Troponin I 1.78 ng/mL (<0.04)
[2018-06-12 04:40] LABS: ABS Basophils 0.1 10^3/ul (0-0.2); ABS Eosinophils 0.1 10^3/ul (0-0.6); ABS Lymphocytes 11.5 10^3/ul (1.0-4.8); ABS Monocytes 0.9 10^3/ul (0-0.8); ABS Neutrophils 7.8 10^3/ul (1.5-7.7); ABS Nucleated RBC 0 10^3/ul; Eosinophil % 0.4 %; Lymphocyte % 56.7 %; Nucleated Red Blood Cells % 0.1
--- NOTE | 2018-06-12 06:12 | HP ---
CC: Markos Woods MD * HISTORY AND PHYSICAL: DATE OF ADMISSION: 06/12/18 TIME OF EVALUATION: 0200 PRIMARY CARE PHYSICIAN: Markos Woods MD CHIEF COMPLAINT: Weakness, altered mental status, and vomiting blood. HISTORY OF PRESENT ILLNESS: This is an 88-year-old male who was recently admitted back in May for pneumonia, presented to the emergency room with vomiting blood. Patient is altered and confused. The history is obtained from the ER and their documentation. The was at the bedside earlier. The patient had hematemesis around 8 p.m. The vomit was described as bloody streaks with mucus and stomach contents. The patient was confused around 5:30. He was tremulous, cough with a fever. Patient at baseline has residual speech and walking difficulty. On my encounter, the patient is alert and oriented x0. He does admit to being short of breath, admitting to cough. He denies any pain, otherwise limited review of systems due to patient's altered mental status. In the emergency room, the patient had labs, imaging. He was ordered 30 mL/kilo of IV fluids. He was given vanco, cefepime, Tylenol, and Zofran, and referred to the hospitalist service for further evaluation. PAST MEDICAL HISTORY: 1. Recent admission back in May 2018 for a pneumonia related to altered mental status. 2. History of coronary artery disease, status post bypass. 3. Carotid artery stent placement in February 2018. 4. History of atrial fibrillation, not on anticoagulation. 5. History of CLL. 6. History of chemotherapy-induced peripheral neuropathy. 7. History of Watchman procedure, July 2017. 8. History of CVA with residual speech and walking difficulty. 9. History of malignant melanoma. 10. Hyperlipidemia. 11. Hypertension. MEDICATIONS: 1. Aspirin 81 mg p.o. daily. 2. Brilinta 90 mg p.o. b.i.d. 3. Losartan 50 mg p.o. in the morning. 4. Atorvastatin 40 mg daily. ALLERGIES: PLAVIX. SOCIAL HISTORY: It appears that the patient was living at home with his , Haleigh, who is his healthcare proxy. No history of smoking, alcohol, or illicit drug use. According to the ER staff, the confirmed that he is DNR/DNI. No MOLST form completed. We will complete one this evening and have the sign it for him. REVIEW OF SYSTEMS: Unable to obtain due to patient's altered mental status. PHYSICAL EXAMINATION GENERAL: Frail elderly male with some tachypnea, mild respiratory distress. VITAL SIGNS: T-max 101.5, heart rate 75, respiratory rate 25, oxygen saturation 96% on 3 L, blood pressure 108/52. HEENT: Head is normocephalic. Pupils are equal and reactive. Oropharynx: Mucous membranes are dry. NECK: Seems to be preferred to be rotated to the left. RESPIRATORY: Coarse rhonchorous breath sounds bilaterally with some increased work of breathing. CARDIAC: Irregular rate and rhythm. Soft systolic murmur heard throughout. ABDOMEN: Hypoactive bowel sounds. Soft, nontender. EXTREMITIES: Trace pretibial edema, +1 DPs. NEUROLOGIC: Patient is alert and oriented x0. Unable to assess a good neurologic exam due to the patient's altered mental status. LABORATORY DATA: White count 28.1, hemoglobin 9.9, hematocrit 30, platelets 138. INR is 1.02. Sodium 131, potassium 4.6, chloride 102, bicarb 21, BUN 25, creatinine 0.92, glucose 129. Troponin is 0.34. Urine shows 2+ blood, fluids negative. RADIOGRAPHIC DATA: Shows prominent opacification in the right middle lobe. EKG: Atrial fibrillation with some ST changes, depression in the lateral leads. ASSESSMENT: This is an 88-year-old male with past medical history of atrial fibrillation and chronic lymphocytic leukemia, who presented to the emergency room with cough, fever, and vomiting bright red blood. 1. Altered mental status. Assessment: I suspected his altered mental status is secondary to infectious etiology. I am concerned for aspiration pneumonia, was recently admitted last month for pneumonia and now again with what appears to be his another pneumonia, and I am suspicious this is more likely aspiration in the setting of a stroke, his age, his debility, and his posture in the stretcher preferring his neck flexed in rotated position. Plan: We will obtain a sputum culture, if possible follow up on the blood cultures. We will change him to Zosyn, keep him n.p.o. and will have a Speech Therapy evaluation. He may need further studies to evaluate his suspected dysphagia. 2. Hematemesis. Assessment: I suspect this is most likely a Griselda-Muir tear in the setting of infectious etiology. He may have also aspirated. His exam is benign. His H and H appears unchanged from 05/17/18. Plan: We will start him on PPI IV daily. Monitor his blood counts. We will hold his aspirin and Brilinta for now, but should resume that if his H and H remain stable, if he continues, consider an EGD. 3. Elevated troponin. Assessment: The patient with ST depression in his EKG in the lateral leads. He is denying chest pain. He appears altered. I suspect this is most likely demand ischemia secondary to his infectious cause. Plan: We will continue to trend his troponin. Check an echo, going to hold his aspirin and Brilinta as mentioned because of his bleeding, but should resume that once the benefit outweigh the risk. CHRONIC MEDICAL PROBLEMS: 1. Hypertension. Hold the Cozaar. 2. Hyperlipidemia. Continue Lipitor once it is safe for him to swallow, and as mentioned, holding his aspirin and Brilinta for now. 3. FEN: N.p.o. Speech and swallow eval. Patient got a significant amount of fluids in the emergency room. We will hold off on further fluids and check a BMP and as mentioned checking an echo in the morning. 4. DVT prophylaxis: Patient scores high risk in the setting of his hematemesis. We will place him on SCDs. 5. Code status. Per ER staff, the confirmed that he is a DNR/DNI. We will have the MOLST form completed with her when she is available to speak with. PATIENT TIME: Greater than 50 minutes was spent doing the history and physical , more than half the time spent in direct patient contact and critical care time. [id number]/[facility] #: [id number] JERAD
[2018-06-12] MEDS: Piperacillin/Tazobac ADVAN(*) 3.375 GM in NS 0.9% 100 ML* 100 ML IVPB SCH ×3 (06:24→21:57)
[2018-06-12 06:39] LABS: Urine Appearance Cloudy; Urine Bacteria Absent (Absent); Urine Bilirubin Negative (Negative); Urine Blood 2+ (Negative); Urine Color Yellow; Urine Glucose Negative (Negative); Urine Ketones Negative (Negative); Urine Nitrite Negative (Negative); Urine Protein Negative (Negative); Urine Red Blood Cell 3+(>10/hpf) (Absent); Urine Specific Gravity 1.018 (1.010-1.030); Urine Urobilinogen Negative (Negative); Urine White Blood Cell Trace(0-5/hpf) (Absent)
[2018-06-12] MEDS: Aspirin 81 mg CHEW TAB* 81 MG TAB.CHEW PO SCH (09:31)
[2018-06-12] MEDS: Ticagrelor* 90 MG TAB PO SCH ×2 (09:31→21:58)
[2018-06-12] MEDS: Atorvastatin* 40 MG TAB PO SCH (09:31)
--- NOTE | 2018-06-12 10:30 | ECHO ---
Patient: ROBBIE GRAHAM [facility] Rec#: [id number] : 1930 Date: 06/12/2018 Age: 88y Height: 173 cm / 68.1 in Weight: 91 kg / 200.6 lbs Sex: M BSA: 2.05 Room#: [facility] Admit Date#: 06/12/2018 Type: Inpatient Referring: Jenn Serrato Reading: Chuckie Sandhu MD Circulation Man: Shari Brooks RDCS CC: Markos Woods MD Transthoracic Echocardiogram Indication: Abnormal EKG BP: 118/63 HR: 73 Rhythm: A-Fib Findings History: CAD s/p CABG, ischemic cardiomyopathy, CLL, CVA. Technical Comments: The study quality is good. Completed at 0830. Left Ventricle: The left ventricular chamber size is normal. There is no left ventricular hypertrophy. There is evidence of an ischemic cardiomyopathy. There is global hypokinesis of the left ventricle with minor regional variation. There is moderate to severely decreased left ventricular systolic function. The estimated ejection fraction is 25-30%. Post surgical hypokinesis of the interventricular septum is observed consistent with coronary artery bypass. The assessment of diastolic function is non-diagnostic. Left Atrium: The left atrium is severely dilated. Right Ventricle: Moderator Band present. The right ventricle is mild to moderately dilated. The right ventricular global systolic function is mildly to moderately reduced. A pacemaker wire is visualized in the right ventricle. Right Atrium: The right atrial cavity size is severely dilated. A pacemaker wire is visualized in the right atrium. Aortic Valve: The aortic valve is trileaflet. Moderate aortic leaflet calcification is visualized. Systolic excursion of the aortic valve cusps is reduced. There is a trace of aortic regurgitation. There is moderate aortic stenosis.Which could be underestimated given severe CMP The mean gradient of the aortic valve is 6 mmHg. The peak instantaneous gradient of the aortic valve is 11 mmHg. The aortic valve area, by peak velocities, is calculated at 1.1 cm2. The aortic valve area, by VTI's, is calculated at 1.2 cm2. Mitral Valve: There is mitral annular calcification. The mitral valve leaflets are mildly thickened. There is trace to mild mitral regurgitation. There is no evidence of mitral stenosis. Tricuspid Valve: The tricuspid valve leaflets are normal. There is severe tricuspid regurgitation. The right ventricular systolic pressure is estimated at 64 mmHg. There is evidence of severe pulmonary hypertension. There is no tricuspid stenosis. Pulmonic Valve: The pulmonic valve appears normal. There is a trace pulmonic regurgitation. There is no pulmonic stenosis. Pericardium: There is no significant pericardial effusion. Aorta: There is mild dilatation of the ascending aorta. The aortic arch is not well visualized. The aortic root is normal in size. Pulmonary Artery: The main pulmonary artery is not well visualized. Venous: The inferior vena cava is dilated. There is an approximate 50% respiratory change in the inferior vena cava dimension. Hepatic vein systolic flow is reversed. Summary: There was not any prior study for comparison. Conclusions There is global hypokinesis of the left ventricle with minor regional variation. There is moderate to severely decreased left ventricular systolic function. The estimated ejection fraction is 25-30%. Post surgical hypokinesis of the interventricular septum is observed consistent with coronary artery bypass. The assessment of diastolic function is non-diagnostic. The left atrium is severely dilated. The right ventricle is mild to moderately dilated. A pacemaker wire is visualized in the right ventricle. A pacemaker wire is visualized in the right atrium. There is a trace of aortic regurgitation. There is moderate aortic stenosis.Which could be underestimated given severe CMP There is trace to mild mitral regurgitation. There is severe tricuspid regurgitation. There is evidence of severe pulmonary hypertension. There is a trace pulmonic regurgitation. There is mild dilatation of the ascending aorta. Measurements Name Value Normal Range RVIDd (AP) 2D 4.3 cm (0.9 - 2.6) RVDdMajor (2D) 4.9 cm (2.2 - 4.4) RAd ISD 4CH 7.7 cm (3.4 - 4.9) RA (A4C)W 5.3 cm (2.9 - 4.6) IVSd (2D) 1 cm (0.6 - 1) LVPWd (2D) 0.9 cm (0.6 - 1) LVIDd (2D) 5.2 cm (3.6 - 5.4) LVIDs (2D) 4.5 cm - LV FS (2D) 13 % (25 - 45) Aortic Annulus 2.1 cm (1.4 - 2.6) Ao root diameter (2D) 3.2 cm (2.1 - 3.5) Ascending Ao 3.9 cm (2.1 - 3.4) LA dimension (AP) 2D 5.5 cm (2.3 - 3.8) LAd ISD 4CH 6.7 cm (2.9 - 5.3) LA ISD 4CH W 5.6 cm (2.5 - 4.5) Name Value Normal Range LA ESV BP (A/L) index 60 ml/m2 - Name Value Normal Range MV E-wave Vmax 1.1 m/sec - MV deceleration time 182 msec - LV septal e' Vmax 0.06 m/sec - LV lateral e' Vmax 0.06 m/sec - LV E:e' septal ratio 18.3 ratio - LV E:e' lateral ratio 18.3 ratio - Name Value Normal Range AV Vmax 1.7 m/sec - AV VTI 37 cm - AV peak gradient 11 mmHg - AV mean gradient 6 mmHg - LVOT diameter 2 cm - LVOT Vmax 0.6 m/sec - LVOT VTI 14 cm - LVOT peak gradient 2 mmHg - LVOT mean gradient 1 mmHg - DOI (VTI) 0.38 ratio - MARYCARMEN (continuity Vmax) 1.1 cm2 - MARYCARMEN (continuity VTI) 1.2 cm2 - RANDALL Vmax 0.5 m/sec - Name Value Normal Range TR Vmax 3.5 m/sec - TR peak gradient 49 mmHg - RAP 15 mmHg - RVSP 64 mmHg - IVC diameter 3.5 cm - Name Value Normal Range PV Vmax 0.6 m/sec - PV peak gradient 2 mmHg -
--- NOTE | 2018-06-12 13:52 | PN ---
Subjective Date of Service: 06/12/18 Interval History: Still some cough. No more chills. Overall feels better. Objective Active Medications: Acetaminophen (Tylenol Tab*) 650 mg PO Q4H PRN PRN Reason: FEVER/PAIN Aspirin (Aspirin 81 Mg Chew Tab*) 81 mg PO QAM [facility] Last Admin: 06/12/18 09:31 Dose: 81 mg Atorvastatin Calcium (Lipitor*) 40 mg PO DAILY [facility] Last Admin: 06/12/18 09:31 Dose: 40 mg Docusate Sodium (Colace Cap*) 100 mg PO BID PRN PRN Reason: CONSTIPATION Piperacillin Sod/Tazobactam (Sod 3.375 gm/ Sodium Chloride) 100 mls @ 25 mls/ hr IVPB Q8H [facility] Last Admin: 06/12/18 06:24 Dose: 25 mls/hr Magnesium Hydroxide (Milk Of Magnesia Liq*) 30 ml PO Q4H PRN PRN Reason: CONSTIPATION Ondansetron HCl (Zofran Inj*) 4 mg IV Q4H PRN PRN Reason: NAUSEA/VOMITING Pantoprazole Sodium (Protonix Iv*) 40 mg IV Q24H [facility] Senna (Senokot Tab*) 1 tab PO BID PRN PRN Reason: CONSTIPATION Ticagrelor (Brilinta*) 90 mg PO BID [facility] Last Admin: 06/12/18 09:31 Dose: 90 mg Vital Signs - 8 hr 06/12/18 06/12/18 06/12/18 06:00 06:01 06:15 Temperature Pulse Rate 69 62 59 Respiratory 20 21 21 Rate Blood Pressure 111/64 118/63 (mmHg) O2 Sat by Pulse 100 100 100 Oximetry 06/12/18 06/12/18 06/12/18 06:30 06:45 07:00 Temperature Pulse Rate 63 67 Respiratory 20 29 24 Rate Blood Pressure 123/71 111/60 129/59 (mmHg) O2 Sat by Pulse 100 99 Oximetry 06/12/18 06/12/18 06/12/18 07:01 07:12 07:15 Temperature Pulse Rate 61 54 Respiratory 21 22 Rate Blood Pressure 112/58 (mmHg) O2 Sat by Pulse 100 100 99 Oximetry 06/12/18 06/12/18 06/12/18 07:30 07:31 07:45 Temperature 98.9 F Pulse Rate 71 61 Respiratory 25 23 Rate Blood Pressure 110/59 108/61 (mmHg) O2 Sat by Pulse 97 99 Oximetry 06/12/18 06/12/18 06/12/18 08:00 08:01 08:15 Temperature Pulse Rate 56 Respiratory 22 22 23 Rate Blood Pressure 139/73 114/66 (mmHg) O2 Sat by Pulse 100 Oximetry 06/12/18 06/12/18 06/12/18 08:30 08:45 09:00 Temperature Pulse Rate 60 57 67 Respiratory 23 23 22 Rate Blood Pressure 124/54 108/68 123/64 (mmHg) O2 Sat by Pulse 100 100 100 Oximetry 06/12/18 06/12/18 06/12/18 09:01 09:15 09:30 Temperature Pulse Rate 60 63 66 Respiratory 22 23 24 Rate Blood Pressure 124/57 120/61 (mmHg) O2 Sat by Pulse 100 100 100 Oximetry 06/12/18 06/12/18 06/12/18 09:45 10:00 10:01 Temperature Pulse Rate 62 55 55 Respiratory 22 23 23 Rate Blood Pressure 121/61 124/60 (mmHg) O2 Sat by Pulse 100 99 99 Oximetry 06/12/18 06/12/18 06/12/18 10:15 10:46 11:00 Temperature Pulse Rate 54 Respiratory 23 20 28 Rate Blood Pressure 121/56 133/90 (mmHg) O2 Sat by Pulse 99 Oximetry 06/12/18 06/12/18 06/12/18 11:02 11:30 11:45 Temperature Pulse Rate 67 67 Respiratory 20 22 25 Rate Blood Pressure 133/64 109/55 97/49 (mmHg) O2 Sat by Pulse 89 98 Oximetry 06/12/18 06/12/18 06/12/18 12:00 12:01 12:15 Temperature 98.8 F Pulse Rate 61 62 60 Respiratory 19 22 19 Rate Blood Pressure 105/52 102/65 (mmHg) O2 Sat by Pulse 93 98 91 Oximetry 06/12/18 06/12/18 06/12/18 12:30 12:45 13:00 Temperature Pulse Rate 62 59 66 Respiratory 19 23 21 Rate Blood Pressure 106/58 116/56 114/70 (mmHg) O2 Sat by Pulse 97 87 95 Oximetry 06/12/18 13:01 Temperature Pulse Rate 63 Respiratory 24 Rate Blood Pressure (mmHg) O2 Sat by Pulse 94 Oximetry Oxygen Devices in Use Now: Nasal Cannula Appearance: Alert, in a chair in ICU. In good spirits. Looks comfortable. Eyes: No Scleral Icterus Cardiovascular: No Edema, - - irreg Abdominal: NL Sounds; No Tenderness; No Distention, No Hepatosplenomegaly, - Extremities: No Edema, No Clubbing, Cyanosis, - Skin: No Nodules or Sclerosis, - - mult seborrheic keratoses on thorax. Neurological: Alert and Oriented x 3, NL Sensation - mild dysphasia, - - Mild R facial droop. Mild expressive aphasia. ? receptive aphasia vs poor hearing. Result Diagrams: 06/12/18 03:41 06/12/18 03:41 Microbiology and Other Data: Microbiology 06/12/18 06:26 Legionella Urinary Antigen - Final Urine Negative Legionella Antigen Streptococcus pneumoniae Ag Screen - Final Negative S. pneumo Antigen 06/12/18 03:30 Nasal Screen MRSA (PCR) - Final Nasal Mrsa Not Detected 06/11/18 23:29 Influenza Types A,B Antigen - Final Nasopharyngeal Specimen received for Influenza A/B Molecular testing Assess/Plan/Problems-Billing Assessment: - Patient Problems (1) Pneumonia Current Visit: Yes Status: Acute Code(s): J18.9 - PNEUMONIA, UNSPECIFIED ORGANISM SNOMED Code(s): 100276114 Comment: This may account for his GI and neuro sx's. Improved as of 06/12. Continue cefepime and vanco. Passed swallow eval. (2) Cardiomyopathy Current Visit: No Status: Acute Code(s): I42.9 - CARDIOMYOPATHY, UNSPECIFIED SNOMED Code(s): 26073884 Comment: Not new although precise prior LVEF not known to me. Records requested. Resume losartan 06/12. If BP OK 4, consider BB. (3) History of CVA (cerebrovascular accident) Current Visit: Yes Status: Acute Code(s): Z86.73 - PRSNL HX OF TIA (TIA), AND CEREB INFRC W/O RESID DEFICITS SNOMED Code(s): 465572780 Comment: Continue ASA, ticagrelor, statin. May be at his baseline. (4) Elevated troponin Current Visit: Yes Status: Acute Code(s): R74.8 - ABNORMAL LEVELS OF OTHER SERUM ENZYMES SNOMED Code(s): 284331921 Comment: May be demand ischemia. Troponin 06/13. Dr. Sandhu to consult.
[2018-06-12] MEDS: Losartan TAB* 25 MG PO SCH (14:37)
--- NOTE | 2018-06-12 17:56 | CONS ---
CC: Dr. Woods; Dr. Sandhu; Dr. Black * CARDIOLOGY CONSULT: DATE OF CONSULT: 06/12/18 HISTORY OF PRESENT ILLNESS: I was asked by Dr. Black from the hospitalist service to see this 88-year-old male patient who presented with change in mental status, weakness, and vomiting of blood. The patient does have a complex medical history. I spent a lengthy time in the patient exam room today talking to his and his [id number]. He follows up with [facility] and his cardiac records are not immediately available to me. I was able to gather that he does have known history of CAD, remote angioplasty and stenting but full detailed information not available; history of CVA, residual speech and walking difficulty; history of CLL; hyperlipidemia; malignant melanoma; hypertension; atrial fibrillation, not on anticoagulation; carotid stent in February 2018 and history of bypass surgery; history of pneumonia a moth ago, presented with chills, fever, cough, and vomited blood. Subsequently he was hospitalized. He was started as well on vanco and cefepime, IV fluid, and hospitalized for the hospitalist service. Cardiology consult was further requested by Dr. Black because of mild rise in the troponin. Initially, his troponin was 0.34, it did go up to 1.53 and 1.78 today. The patient does have no chest pain. He does have some shortness of breath. He is anemic as well with hemoglobin initially 9.9 and 8.7 today with possibilities of mild GI bleed. He had no chest pain, no syncope. There is fever and chills. There is vomiting. No swelling in the lower extremities. No abdominal pain. No hematochezia, no nausea, no vomiting, no black stool, no dizziness, no syncope is appreciated. He is admitted for now in the intensive care unit. He is DNR status. 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 MEDICATIONS: As outpatient include: 1. Brilinta 90 mg daily. 2. Aspirin 81 mg daily. 3. Losartan 50 mg in the morning. 4. Lipitor 40 mg daily. ALLERGIES: Allergic to PLAVIX. SOCIAL HISTORY: Living with his . No smoking, no drinking, no illicit drug use. REVIEW OF SYSTEMS: Review of all other systems essentially unremarkable. His other surgical history as mentioned above. PHYSICAL EXAM: He is frail, elderly, some tachypnea, but he had no chest pain. His vitals as of today, blood pressure 114/70, pulse is 63, and temperature initially 98.8, actually temperature in the emergency room I should say 101.5. Head and Neck Exam: Normocephalic, atraumatic head. Ears, Nose and Throat: Essentially benign. Neck: Supple. JVP is not elevated. No carotid bruits. No masses in the neck is appreciated. Chest: Diminished air entry bilaterally. Some rhonchi at the bases. No wheeze. Heart: Normal S1, S2. No added sounds. No gallops. There is a grade 2/6 systolic murmur in the left sternal border. Abdomen: Benign. Positive bowel sounds. Extremities. No significant edema. No cyanosis, no clubbing. Skin: Normal. Psych: Unable to evaluate. 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 DIAGNOSTIC STUDIES/LAB DATA: His labs showed the following: White blood cell 20.4, initially 28.1; hemoglobin 8.7; hematocrit 27; and platelets 105. INR 1.05. Chemistry showed sodium 132, potassium 4.4, chloride 106, total CO2 of 21 , BUN 24, creatinine 0.84, troponin as mentioned. BNP 845. LDL 45, HDL 39, triglycerides 43, cholesterol 93. His EKG from today showed the patient to be in atrial fibrillation and PVC appreciated, poor R wave progression, nonspecific ST-T changes, anterior septal FL which is old. His echo showed his EF to be severely reduced with an EF of 25 % to 30%, severe tricuspid insufficiency, severe pulmonary hypertension, at least moderate aortic stenosis which could be underestimated given his cardiomyopathy which is severe. Chest x-ray was reported to have mild pulmonary congestion, pneumonia, and COPD. IMPRESSION: The patient is an 88-year-old with: 1. Presentation with concerns for vomiting of blood and upper gastrointestinal bleed. 2. Pneumonia with fever. 3. Leukocytosis and chronic lymphocytic leukemia. 4. 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 5. Anemia. 6. Known history of CAD and CABG before. 7. History of atrial fibrillation and history of Watchman procedure. 8. History of cerebrovascular accident, status post left carotid stent in February 2018. 9. Abnormal EKG as described. 10. The patient is DNR. 11. Systemic arterial hypertension and hyperlipidemia. 12. Severe cardiomyopathy with EF 25% to 30%. PLAN/RECOMMENDATIONS: The patient is with high-risk comorbidities, complex. The and the [id number] are aware of this presentation, aware of him being high risk and high comorbidities. They are not sure at the present time if they want to proceed with any invasive cardiac procedures. They expressed if a decision to be made for any cardiac cath or any other procedure, they might consider [facility] given all his cardiac procedures and cardiology followup is at [facility] in [place]. At the present time, we are continuing antibiotic as he is already doing for presumptive pneumonia treatment. He is not overtly in congestive heart failure. He has no active chest pain. Follow up serial troponin. Continue aspirin, Brilinta, and ARBs as he is already doing. I noticed he is not on beta- graeme treatment. I will discuss this with Dr. Black and find out why he was not on beta-graeme treatment as an outpatient. Follow up clinically. Follow up closely his white blood cell count, electrolytes, and kidney function. His at least moderate aortic stenosis combined with his severe cardiomyopathy are high risk comorbidities for this elderly patient. The family is aware of this. They are studying their options. They asked for help for a social service coordinator consult which I will be more than happy to provide at the present time. Any further recommendations will be pending his clinical outcome. More than half of at least 60 to 65 plus minutes was [id number] education, counseling mode, discussing the above, and making further recommendations. [id number]/[facility] #: [id number] JERAD
[2018-06-12] MEDS: Acetaminophen TAB* 325 MG PO PRN (23:54)
[2018-06-13] MEDS: Pantoprazole IV* 40 MG IV SCH (04:14)
[2018-06-13 05:26] LABS: Hematocrit 26 % (42-52); Hemoglobin 8.4 g/dl (14.0-18.0); Mean Corpuscular HGB Conc 33 g/dl (31-36); Mean Corpuscular Hemoglobin 28 pg (27-31); Mean Corpuscular Volume 86 fL (80-94); Mean Platelet Volume 7.8 fL (7.4-10.4); Platelet Count 91 10^3/ul (150-450); Red Blood Count 2.99 10^6/ul (4.00-5.40); Red Cell Distribution Width 16 % (10.5-15); White Blood Count 15.9 10^3/ul (3.5-10.8)
[2018-06-13 05:48] LABS: ABS Basophils 0 10^3/ul (0-0.2); ABS Eosinophils 0.4 10^3/ul (0-0.6); ABS Monocytes 0.7 10^3/ul (0-0.8); ABS Neutrophils 5.8 10^3/ul (1.5-7.7); ABS Nucleated RBC 0 10^3/ul; Acanthocytes 2+; Eosinophil % 2.3 %; Lymphocyte % 56.6 %; Nucleated Red Blood Cells % 0.1; Polychromasia 1+
[2018-06-13] MEDS: Piperacillin/Tazobac ADVAN(*) 3.375 GM in NS 0.9% 100 ML* 100 ML IVPB SCH ×3 (05:58→21:38)
--- NOTE | 2018-06-13 07:58 | PN ---
Subjective Date of Service: 06/13/18 Interval History: Very little cough. No SOB, chest pain. Appetite OK. No new c/o. Objective Active Medications: Acetaminophen (Tylenol Tab*) 650 mg PO Q4H PRN PRN Reason: FEVER/PAIN Last Admin: 06/12/18 23:54 Dose: 650 mg Aspirin (Aspirin 81 Mg Chew Tab*) 81 mg PO QAM [facility] Last Admin: 06/12/18 09:31 Dose: 81 mg Atorvastatin Calcium (Lipitor*) 40 mg PO DAILY [facility] Last Admin: 06/12/18 09:31 Dose: 40 mg Docusate Sodium (Colace Cap*) 100 mg PO BID PRN PRN Reason: CONSTIPATION Piperacillin Sod/Tazobactam (Sod 3.375 gm/ Sodium Chloride) 100 mls @ 25 mls/ hr IVPB Q8H [facility] Last Admin: 06/13/18 05:58 Dose: 25 mls/hr Losartan Potassium (Cozaar Tab*) [facility] Last Admin: 06/12/18 14:37 Dose: 50 mg Magnesium Hydroxide (Milk Of MagnProject [employer] Liq*) 30 ml PO Q4H PRN PRN Reason: CONSTIPATION Ondansetron HCl (Zofran Inj*) 4 mg IV Q4H PRN PRN Reason: NAUSEA/VOMITING Pantoprazole Sodium (Protonix Iv*) 40 mg IV Q24H [facility] Last Admin: 06/13/18 04:14 Dose: 40 mg Senna (Senokot Tab*) 1 tab PO BID PRN PRN Reason: CONSTIPATION Ticagrelor (Brilinta*) 90 mg PO BID [facility] Last Admin: 06/12/18 21:58 Dose: 90 mg Vital Signs - 8 hr 06/13/18 06/13/18 06/13/18 00:00 00:01 01:00 Temperature 100.9 F Pulse Rate 70 66 82 Respiratory 27 26 17 Rate Blood Pressure 115/63 (mmHg) O2 Sat by Pulse 94 94 92 Oximetry 06/13/18 06/13/18 06/13/18 02:00 03:00 03:52 Temperature 99.1 F Pulse Rate 67 67 Respiratory 24 26 Rate Blood Pressure (mmHg) O2 Sat by Pulse 93 92 Oximetry 06/13/18 06/13/18 06/13/18 04:00 04:01 05:00 Temperature Pulse Rate 62 67 59 Respiratory 23 23 24 Rate Blood Pressure 109/52 (mmHg) O2 Sat by Pulse 94 93 94 Oximetry 06/13/18 06/13/18 06:00 07:34 Temperature 98.2 F Pulse Rate 67 Respiratory 23 Rate Blood Pressure (mmHg) O2 Sat by Pulse 96 Oximetry Oxygen Devices in Use Now: Nasal Cannula Appearance: Alert, head partly up in ICU bed. In good spirits. Looks comfortable. Eyes: No Scleral Icterus Cardiovascular: NL Sounds; No Murmurs; No JVD, RRR, No Edema, - - PPM L subclavicular area Extremities: No Edema, No Clubbing, Cyanosis, - Skin: No Nodules or Sclerosis, - - mult benign lesions scalp and face Neurological: NL Sensation - Some expressive aphaia Result Diagrams: 06/13/18 05:08 06/12/18 03:41 Microbiology and Other Data: Microbiology 06/12/18 06:26 Legionella Urinary Antigen - Final Urine Negative Legionella Antigen Streptococcus pneumoniae Ag Screen - Final Negative S. pneumo Antigen 06/12/18 03:30 Nasal Screen MRSA (PCR) - Final Nasal Mrsa Not Detected 06/11/18 23:29 Influenza Types A,B Antigen - Final Nasopharyngeal Specimen received for Influenza A/B Molecular testing Assess/Plan/Problems-Billing Assessment: - Patient Problems (1) Pneumonia Current Visit: Yes Status: Acute Code(s): J18.9 - PNEUMONIA, UNSPECIFIED ORGANISM SNOMED Code(s): 812780140 Comment: This may account for his GI and neuro sx's. Improved as of 06/13, WBC down to 15.9. Continue pip/ava. (2) Cardiomyopathy Current Visit: No Status: Acute Code(s): I42.9 - CARDIOMYOPATHY, UNSPECIFIED SNOMED Code(s): 12086944 Comment: Not new although precise prior LVEF not known to me. Records requested. Resume losartan 06/12. If BP OK 06/13, consider BB. Hx CABG, stents, Watchman device. PPM (??ICD) (3) History of CVA (cerebrovascular accident) Current Visit: Yes Status: Acute Code(s): Z86.73 - PRSNL HX OF TIA (TIA), AND CEREB INFRC W/O RESID DEFICITS SNOMED Code(s): 507647987 Comment: Recent carotid stenting 02/25. Continue ASA, ticagrelor, statin. May be at his baseline. (4) Elevated troponin Current Visit: Yes Status: Acute Code(s): R74.8 - ABNORMAL LEVELS OF OTHER SERUM ENZYMES SNOMED Code(s): 439296004 Comment: May be demand ischemia. Troponin 06/13. Dr. Sandhu to consult. (5) Anemia Current Visit: Yes Status: Acute Code(s): D64.9 - ANEMIA, UNSPECIFIED SNOMED Code(s): 426870205 Comment: Hgb 8.4 06/13/18. Repeat 06/14.
[2018-06-13] MEDS: Atorvastatin* 40 MG TAB PO SCH (10:25)
[2018-06-13] MEDS: Aspirin 81 mg CHEW TAB* 81 MG TAB.CHEW PO SCH (10:25)
[2018-06-13] MEDS: Losartan TAB* 25 MG PO SCH (10:25)
[2018-06-13] MEDS: Ticagrelor* 90 MG TAB PO SCH ×2 (10:26→20:52)
[2018-06-13] MEDS: Acetaminophen TAB* 325 MG PO PRN (20:52)
[2018-06-14] MEDS: Pantoprazole IV* 40 MG IV SCH (02:20)
[2018-06-14] MEDS: Piperacillin/Tazobac ADVAN(*) 3.375 GM in NS 0.9% 100 ML* 100 ML IVPB SCH ×3 (06:04→21:12)
[2018-06-14 06:19] LABS: Hematocrit 26 % (42-52); Hemoglobin 8.7 g/dl (14.0-18.0); Mean Corpuscular HGB Conc 33 g/dl (31-36); Mean Corpuscular Hemoglobin 29 pg (27-31); Mean Corpuscular Volume 86 fL (80-94); Mean Platelet Volume 7.7 fL (7.4-10.4); Platelet Count 101 10^3/ul (150-450); Red Blood Count 3.05 10^6/ul (4.00-5.40); Red Cell Distribution Width 16 % (10.5-15)
[2018-06-14 07:17] LABS: ABS Basophils 0 10^3/ul (0-0.2); ABS Lymphocytes 9.7 10^3/ul (1.0-4.8); ABS Monocytes 0.7 10^3/ul (0-0.8); ABS Neutrophils 4.6 10^3/ul (1.5-7.7); ABS Nucleated RBC 0 10^3/ul; Acanthocytes 1+; Eosinophil % 5.9 %; Lymphocyte % 60.8 %; Nucleated Red Blood Cells % 0.1; Polychromasia 1+
--- NOTE | 2018-06-14 08:04 | PN ---
Subjective Date of Service: 06/14/18 Interval History: Occ mild cough per patient, no other c/o. Objective Active Medications: Acetaminophen (Tylenol Tab*) 650 mg PO Q4H PRN PRN Reason: FEVER/PAIN Last Admin: 06/13/18 20:52 Dose: 650 mg Aspirin (Aspirin 81 Mg Chew Tab*) 81 mg PO QAM [facility] Last Admin: 06/13/18 10:25 Dose: 81 mg Atorvastatin Calcium (Lipitor*) 40 mg PO DAILY [facility] Last Admin: 06/13/18 10:25 Dose: 40 mg Docusate Sodium (Colace Cap*) 100 mg PO BID PRN PRN Reason: CONSTIPATION Piperacillin Sod/Tazobactam (Sod 3.375 gm/ Sodium Chloride) 100 mls @ 25 mls/ hr IVPB Q8H [facility] Last Admin: 06/14/18 06:04 Dose: 25 mls/hr Losartan Potassium (Cozaar Tab*) [facility] Last Admin: 06/13/18 10:25 Dose: 50 mg Magnesium Hydroxide (Milk Of Magnkae Liq*) 30 ml PO Q4H PRN PRN Reason: CONSTIPATION Ondansetron HCl (Zofran Inj*) 4 mg IV Q4H PRN PRN Reason: NAUSEA/VOMITING Pantoprazole Sodium (Protonix Iv*) 40 mg IV Q24H [facility] Last Admin: 06/14/18 02:20 Dose: 40 mg Senna (Senokot Tab*) 1 tab PO BID PRN PRN Reason: CONSTIPATION Ticagrelor (Brilinta*) 90 mg PO BID [facility] Last Admin: 06/13/18 20:52 Dose: 90 mg Vital Signs - 8 hr 06/14/18 06/14/18 06/14/18 00:00 00:01 00:07 Temperature Pulse Rate 74 69 69 Respiratory 22 20 22 Rate Blood Pressure 111/66 (mmHg) O2 Sat by Pulse 92 93 92 Oximetry 06/14/18 06/14/18 06/14/18 01:00 02:00 03:00 Temperature Pulse Rate 64 64 68 Respiratory 20 25 22 Rate Blood Pressure (mmHg) O2 Sat by Pulse 96 89 96 Oximetry 06/14/18 06/14/18 06/14/18 03:54 04:00 04:01 Temperature 97.1 F Pulse Rate 61 70 Respiratory 23 24 Rate Blood Pressure 113/69 (mmHg) O2 Sat by Pulse 95 87 Oximetry 06/14/18 06/14/18 06/14/18 05:00 06:00 07:44 Temperature 97.9 F Pulse Rate 66 59 Respiratory 21 24 Rate Blood Pressure (mmHg) O2 Sat by Pulse 94 94 Oximetry Oxygen Devices in Use Now: Nasal Cannula Appearance: Alert, sl up on ICU bed. Neutral affect, looks comfortable. Eyes: No Scleral Icterus Respiratory: Symmetrical Chest Expansion and Respiratory Effort, Clear to Auscultation, Clear to Percussion Cardiovascular: NL Sounds; No Murmurs; No JVD, RRR, No Edema, - Extremities: No Edema, No Clubbing, Cyanosis, - Skin: No Nodules or Sclerosis, - - many keratoses scalp, face, trunk Neurological: Alert and Oriented x 3, NL Sensation Result Diagrams: 06/14/18 06:00 06/12/18 03:41 Microbiology and Other Data: Microbiology 06/12/18 06:26 Legionella Urinary Antigen - Final Urine Negative Legionella Antigen Streptococcus pneumoniae Ag Screen - Final Negative S. pneumo Antigen 06/12/18 03:30 Nasal Screen MRSA (PCR) - Final Nasal Mrsa Not Detected 06/11/18 23:29 Influenza Types A,B Antigen - Final Nasopharyngeal Specimen received for Influenza A/B Molecular testing Assess/Plan/Problems-Billing Assessment: - Patient Problems (1) Pneumonia Current Visit: Yes Status: Acute Code(s): J18.9 - PNEUMONIA, UNSPECIFIED ORGANISM SNOMED Code(s): 008312761 Comment: This may account for his GI and neuro sx's. Improved as of 06/14, WBC 16.0. Continue pip/ava. CBC 06/15. (2) Cardiomyopathy Current Visit: No Status: Acute Code(s): I42.9 - CARDIOMYOPATHY, UNSPECIFIED SNOMED Code(s): 54434710 Comment: Not new although precise prior LVEF not known to me. Records requested, none received as of 06/14 AM. Continue losartan. Consider BB depending on BP. Hx CABG, stents, Watchman device. PPM (??ICD). BMP 06/15. (3) History of CVA (cerebrovascular accident) Current Visit: Yes Status: Acute Code(s): Z86.73 - PRSNL HX OF TIA (TIA), AND CEREB INFRC W/O RESID DEFICITS SNOMED Code(s): 258342878 Comment: Recent carotid stenting 02/25. Continue ASA, ticagrelor, statin. May be at his baseline. (4) Elevated troponin Current Visit: Yes Status: Acute Code(s): R74.8 - ABNORMAL LEVELS OF OTHER SERUM ENZYMES SNOMED Code(s): 014201693 Comment: May be demand ischemia. Troponin 06/13. Dr. Sandhu to consult. (5) Anemia Current Visit: Yes Status: Acute Code(s): D64.9 - ANEMIA, UNSPECIFIED SNOMED Code(s): 212325405 Comment: Hgb 8.7 06/13/18. Repeat 06/15.
[2018-06-14] MEDS: Atorvastatin* 40 MG TAB PO SCH (08:36)
[2018-06-14] MEDS: Aspirin 81 mg CHEW TAB* 81 MG TAB.CHEW PO SCH (08:36)
[2018-06-14] MEDS: Losartan TAB* 25 MG PO SCH (08:36)
[2018-06-14] MEDS: Ticagrelor* 90 MG TAB PO SCH ×2 (08:37→21:12)
--- NOTE | 2018-06-14 09:38 | PN ---
Subjective Date of Service: 06/14/18 - CC: SOB, pleuritic CP Interval History: The patient has an expressive aphasia, impacts ability to get a history. The patient's breathing is better. He has some pleuritic CP. No other chest pain. Medications Active Medications: Acetaminophen (Tylenol Tab*) 650 mg PO Q4H PRN PRN Reason: FEVER/PAIN Last Admin: 06/13/18 20:52 Dose: 650 mg Aspirin (Aspirin 81 Mg Chew Tab*) [facility] [place] Last Admin: 06/14/18 08:36 Dose: 81 mg Atorvastatin Calcium (Lipitor*) 40 mg PO DAILY [facility] Last Admin: 06/14/18 08:36 Dose: 40 mg Docusate Sodium (Colace Cap*) 100 mg PO BID PRN PRN Reason: CONSTIPATION Piperacillin Sod/Tazobactam (Sod 3.375 gm/ Sodium Chloride) 100 mls @ 25 mls/ hr IVPB Q8H [facility] Last Admin: 06/14/18 06:04 Dose: 25 mls/hr Losartan Potassium (Cozaar Tab*) 50 mg PO [facility] Last Admin: 06/14/18 08:36 Dose: 50 mg Magnesium Hydroxide (Milk Of Magnesia Liq*) 30 ml PO Q4H PRN PRN Reason: CONSTIPATION Ondansetron HCl (Zofran Inj*) 4 mg IV Q4H PRN PRN Reason: NAUSEA/VOMITING Pantoprazole Sodium (Protonix Iv*) 40 mg IV Q24H [facility] Last Admin: 06/14/18 02:20 Dose: 40 mg Senna (Senokot Tab*) 1 tab PO BID PRN PRN Reason: CONSTIPATION Ticagrelor (Brilinta*) 90 mg PO BID [facility] Last Admin: 06/14/18 08:37 Dose: 90 mg Objective Vital Signs: Temp Pulse Resp BP Pulse Ox 97.9 F 61 22 147/74 96 06/14/18 07:44 06/14/18 09:00 06/14/18 09:00 06/14/18 08:31 06/14/18 09:00 Oxygen Devices in Use Now: Nasal Cannula Appearance: Elderly male, lying in bed 50 degrees, comfortable. 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 Neck: Trachea Midline, No Thyroid Enlargement, Masses - R carotid bruit Respiratory: Symmetrical Chest Expansion and Respiratory Effort - diminished BS , left base worst. Cardiovascular: - - irregular, soft mid peaking murmur RUSB, pansystolic murmur LLSB+apex. Abdominal: NL Sounds; No Tenderness; No Distention, No Hepatosplenomegaly Extremities: No Edema Skin: No Rash or Ulcers Neurological: - - expressive aphasia, salad speech. Follows command fairly well. Laboratory Results: 06/14/18 06:00 06/12/18 03:41 INR (Anticoag Therapy) 1.05 (0.77-1.02) H 06/11/18 23:28 APTT 27.1 seconds (26.0-36.3) 06/11/18 23:28 Total Bilirubin 1.00 mg/dL (0.2-1.0) 06/11/18 23:28 AST 23 U/L (13-39) 06/11/18 23:28 ALT 12 U/L (7-52) 06/11/18 23:28 Alkaline Phosphatase 72 U/L (34-104) 06/11/18 23:28 B-Natriuretic Peptide 845 pg/mL (<=100) H 06/11/18 23:28 Total Protein 5.7 g/dL (6.4-8.9) L 06/11/18 23:28 Albumin 3.7 g/dL (3.2-5.2) 06/11/18 23:28 Globulin 2.0 g/dL (2-4) 06/11/18 23:28 Albumin/Globulin Ratio 1.9 (1-3) 06/11/18 23:28 Triglycerides 43 mg/dL 06/12/18 03:41 Cholesterol 93 mg/dL 06/12/18 03:41 LDL Cholesterol 45 mg/dL 06/12/18 03:41 HDL Cholesterol 39.4 mg/dL 06/12/18 03:41 06/11/18 06/12/18 06/12/18 23:28 02:46 03:41 Troponin I 0.34 H* 1.53 H* 1.78 H* 06/13/18 05:08 Troponin I 1.21 H* Diagnostic Imaging: Echo 06/13/18: EF 25-30%, moderate , severe TR. EKG Data: Monitor afib, controlled ventricular rate. Assessment/Plan 88 yo with a complex cardiovascular history admitted with pneumonia and hematemisis showing improvement in white count and clinical improvement with antibiotics. CAD/CABG: Continue ASA and statin, good LDL control. I concur with Dr Sandhu BB could benefit pt. If no contraindications when [facility]y notes become available I would start either Toprol 25 mg/daily or Coreg 3.125 mg BID CM: Contineu ARB BB as above if able. Elevated BNP noted. No overt failure, CXR reviewed and I don't see CHF, but PRN diuretics could be added. Elevation may reflect TR/right atrial stretch not left heart failure. Troponin bump: Likely demand ischemia. Medical management/supportive care for now. Valvular heart disease: Medical management, continue above. Hx CVA, PVD/carotids: Continue statin. AFib: Apparently not a candidate for anticoagulation in the past based on Watchman and recent hematemisis. No new suggestions. Pacer: I don't see any indication for acute interrogation. Lead placement good on CXR. No cath or stress test for elevated troponins planned. Frail elderly gentleman who's pneumonia is placing stress on cardiovascular system. Cardiology will follow distantly, please contact us if new cardiovascular changes.
[2018-06-14] MEDS: Acetaminophen TAB* 325 MG PO PRN (19:26)
[2018-06-15] MEDS: Pantoprazole IV* 40 MG IV SCH (03:21)
[2018-06-15] MEDS: Piperacillin/Tazobac ADVAN(*) 3.375 GM in NS 0.9% 100 ML* 100 ML IVPB SCH ×3 (05:34→21:54)
[2018-06-15 05:43] LABS: Hematocrit 28 % (42-52); Mean Corpuscular HGB Conc 33 g/dl (31-36); Mean Corpuscular Hemoglobin 28 pg (27-31); Mean Corpuscular Volume 86 fL (80-94); Mean Platelet Volume 7.6 fL (7.4-10.4); Platelet Count 123 10^3/ul (150-450); Red Blood Count 3.22 10^6/ul (4.00-5.40); Red Cell Distribution Width 16 % (10.5-15); White Blood Count 17.3 10^3/ul (3.5-10.8)
[2018-06-15 05:58] LABS: BUN/Creatinine Ratio 27.8 (8-20); Calcium 8.6 mg/dL (8.6-10.3); EGFR African American 112.3 (>60); EGFR Non-African American 92.8 (>60)
[2018-06-15 06:15] LABS: ABS Basophils 0 10^3/ul (0-0.2); ABS Monocytes 0.6 10^3/ul (0-0.8); ABS Neutrophils 3.6 10^3/ul (1.5-7.7); ABS Nucleated RBC 0 10^3/ul; Acanthocytes 1+; Eosinophil % 5.8 %; Lymphocyte % 69.4 %; Nucleated Red Blood Cells % 0.1
[2018-06-15] MEDS: Atorvastatin* 40 MG TAB PO SCH (08:21)
[2018-06-15] MEDS: Aspirin 81 mg CHEW TAB* 81 MG TAB.CHEW PO SCH (08:21)
[2018-06-15] MEDS: Ticagrelor* 90 MG TAB PO SCH ×2 (08:21→21:50)
[2018-06-15] MEDS: Losartan TAB* 25 MG PO SCH (08:21)
--- NOTE | 2018-06-15 08:21 | PN ---
Subjective Date of Service: 06/15/18 Interval History: Patient doing well, reports occasional bloody cough. No shortness of breath, currently on room air. Objective Active Medications: Acetaminophen (Tylenol Tab*) 650 mg PO Q4H PRN PRN Reason: FEVER/PAIN Last Admin: 06/14/18 19:26 Dose: 650 mg Aspirin (Aspirin 81 Mg Chew Tab*) 81 mg PO QAM [facility] Last Admin: 06/14/18 08:36 Dose: 81 mg Atorvastatin Calcium (Lipitor*) 40 mg PO DAILY [facility] Last Admin: 06/14/18 08:36 Dose: 40 mg Docusate Sodium (Colace Cap*) 100 mg PO BID PRN PRN Reason: CONSTIPATION Piperacillin Sod/Tazobactam (Sod 3.375 gm/ Sodium Chloride) 100 mls @ 25 mls/ hr IVPB Q8H [facility] Last Admin: 06/15/18 05:34 Dose: 25 mls/hr Losartan Potassium (Cozaar Tab*) 50 mg PO QAM [facility] Last Admin: 06/14/18 08:36 Dose: 50 mg Magnesium Hydroxide (Milk Of LegCyte Liq*) 30 ml PO Q4H PRN PRN Reason: CONSTIPATION Ondansetron HCl (Zofran Inj*) 4 mg IV Q4H PRN PRN Reason: NAUSEA/VOMITING Pantoprazole Sodium (Protonix Iv*) 40 mg IV Q24H [facility] Last Admin: 06/15/18 03:21 Dose: 40 mg Senna (Senokot Tab*) 1 tab PO BID PRN PRN Reason: CONSTIPATION Ticagrelor (Brilinta*) 90 mg PO BID [facility] Last Admin: 06/14/18 21:12 Dose: 90 mg Vital Signs - 8 hr 06/15/18 06/15/18 06/15/18 01:00 02:00 03:00 Temperature Pulse Rate 63 55 61 Respiratory 24 22 24 Rate Blood Pressure (mmHg) O2 Sat by Pulse 96 94 95 Oximetry 06/15/18 06/15/18 06/15/18 03:48 04:00 05:00 Temperature 97.9 F Pulse Rate 63 84 Respiratory 26 34 Rate Blood Pressure 142/65 (mmHg) O2 Sat by Pulse 96 98 Oximetry 06/15/18 06/15/18 06/15/18 06:00 07:00 07:40 Temperature Pulse Rate 64 66 Respiratory 24 27 27 Rate Blood Pressure (mmHg) O2 Sat by Pulse 100 87 Oximetry 06/15/18 06/15/18 08:00 08:01 Temperature 99 F Pulse Rate 67 69 Respiratory 31 27 Rate Blood Pressure 163/78 (mmHg) O2 Sat by Pulse 97 98 Oximetry Oxygen Devices in Use Now: None Appearance: Elderly male lying in bed not in distress Respiratory: - - scattered rhonchi Cardiovascular: - - irregularly irregular, 3/6 systolic murmur best heard at apex. Abdominal: NL Sounds; No Tenderness; No Distention Result Diagrams: 06/15/18 05:30 06/15/18 05:30 Microbiology and Other Data: Microbiology 06/12/18 06:26 Legionella Urinary Antigen - Final Urine Negative Legionella Antigen Streptococcus pneumoniae Ag Screen - Final Negative S. pneumo Antigen 06/12/18 03:30 Nasal Screen MRSA (PCR) - Final Nasal Mrsa Not Detected 06/11/18 23:29 Influenza Types A,B Antigen - Final Nasopharyngeal Specimen received for Influenza A/B Molecular testing Assess/Plan/Problems-Billing Assessment: 88 year old Male with history of atrial fibrillation, CVA, Cardiomyopathy here with pneumonia, demand ischemia. - Patient Problems (1) Pneumonia Current Visit: Yes Status: Acute Code(s): J18.9 - PNEUMONIA, UNSPECIFIED ORGANISM SNOMED Code(s): 816748398 Comment: This may account for his GI and neuro sx's. Improved as of 06/14, WBC trended upwards slighlty at 17 today. Continue pip/ava. (2) Elevated troponin Current Visit: Yes Status: Acute Code(s): R74.8 - ABNORMAL LEVELS OF OTHER SERUM ENZYMES SNOMED Code(s): 321179149 Comment: Likely demand ischemia. Cardiology on board. Continue aspirin, also patient takes brilinta. awaiting records from [facility] to check for any contraindications of beta graeme (3) History of CVA (cerebrovascular accident) Current Visit: Yes Status: Acute Code(s): Z86.73 - PRSNL HX OF TIA (TIA), AND CEREB INFRC W/O RESID DEFICITS SNOMED Code(s): 047470555 Comment: Recent carotid stenting 02/25. Continue ASA, ticagrelor, statin. May be at his baseline. (4) Atrial fibrillation Current Visit: No Status: Acute Code(s): I48.91 - UNSPECIFIED ATRIAL FIBRILLATION SNOMED Code(s): 84772334 Comment: - S/p Watcham procedure - Aspirin, Brilinta, he is not requiring rate controlling drug (5) Cardiomyopathy Current Visit: No Status: Acute Code(s): I42.9 - CARDIOMYOPATHY, UNSPECIFIED SNOMED Code(s): 08493292 Comment: Not new although precise prior LVEF not known to me. Records requested, none received as of 1/6 AM. Continue losartan. Consider BB depending on BP. Hx CABG, stents, Watchman device. PPM (??ICD). (6) Anemia Current Visit: Yes Status: Acute Code(s): D64.9 - ANEMIA, UNSPECIFIED SNOMED Code(s): 537474987 Comment: Hb stable. will monitor for s/s of bleeding. (7) DNR (do not resuscitate) Current Visit: Yes Status: Acute
[2018-06-15] MEDS: Acetaminophen TAB* 325 MG PO PRN (21:50)
[2018-06-16] MEDS: Pantoprazole IV* 40 MG IV SCH (03:15)
[2018-06-16] MEDS: Piperacillin/Tazobac ADVAN(*) 3.375 GM in NS 0.9% 100 ML* 100 ML IVPB SCH ×3 (05:59→22:26)
--- NOTE | 2018-06-16 08:13 | PN ---
Subjective Date of Service: 06/16/18 Interval History: Doing well, no issues overnight. Currently no SOB, no chest pain, no cough. Objective Active Medications: Acetaminophen (Tylenol Tab*) 650 mg PO Q4H PRN PRN Reason: FEVER/PAIN Last Admin: 06/15/18 21:50 Dose: 650 mg Aspirin (Aspirin 81 Mg Chew Tab*) 81 mg PO QAM [facility] Last Admin: 06/15/18 08:21 Dose: 81 mg Atorvastatin Calcium (Lipitor*) 40 mg PO DAILY [facility] Last Admin: 06/15/18 08:21 Dose: 40 mg Docusate Sodium (Colace Cap*) 100 mg PO BID PRN PRN Reason: CONSTIPATION Piperacillin Sod/Tazobactam (Sod 3.375 gm/ Sodium Chloride) 100 mls @ 25 mls/ hr IVPB Q8H [facility] Last Admin: 06/16/18 05:59 Dose: 25 mls/hr Losartan Potassium (Cozaar Tab*) [facility] [place] Last Admin: 06/15/18 08:21 Dose: 50 mg Magnesium Hydroxide (Milk Of inDinero Liq*) 30 ml PO Q4H PRN PRN Reason: CONSTIPATION Metoprolol Succinate (Toprol Xl Tab*) 25 mg PO DAILY [facility] Ondansetron HCl (Zofran Inj*) 4 mg IV Q4H PRN PRN Reason: NAUSEA/VOMITING Pantoprazole Sodium (Protonix Iv*) 40 mg IV Q24H [facility] Last Admin: 06/16/18 03:15 Dose: 40 mg Senna (Senokot Tab*) 1 tab PO BID PRN PRN Reason: CONSTIPATION Ticagrelor (Brilinta*) 90 mg PO BID [facility] Last Admin: 06/15/18 21:50 Dose: 90 mg Vital Signs - 8 hr 06/16/18 06/16/18 06/16/18 01:00 02:00 03:00 Temperature Pulse Rate 73 79 98 Respiratory 23 28 29 Rate Blood Pressure (mmHg) O2 Sat by Pulse 95 93 94 Oximetry 06/16/18 06/16/18 06/16/18 04:00 04:01 05:00 Temperature 97.6 F Pulse Rate 74 80 95 Respiratory 25 27 32 Rate Blood Pressure 149/88 (mmHg) O2 Sat by Pulse 99 96 98 Oximetry 06/16/18 06/16/18 06/16/18 06:00 07:00 07:31 Temperature 97.3 F Pulse Rate 75 84 Respiratory 26 23 Rate Blood Pressure (mmHg) O2 Sat by Pulse 97 95 Oximetry Oxygen Devices in Use Now: None Appearance: Elderly male lying in bed, not in distress. Respiratory: - - No tachypnea, minimal end expiratory wheezing. Cardiovascular: - - irregularly irregular Abdominal: NL Sounds; No Tenderness; No Distention Skin: - - numerous senile skin lesions Result Diagrams: 06/15/18 05:30 06/15/18 05:30 Microbiology and Other Data: Microbiology 06/12/18 06:26 Legionella Urinary Antigen - Final Urine Negative Legionella Antigen Streptococcus pneumoniae Ag Screen - Final Negative S. pneumo Antigen 06/12/18 03:30 Nasal Screen MRSA (PCR) - Final Nasal Mrsa Not Detected 06/11/18 23:29 Influenza Types A,B Antigen - Final Nasopharyngeal Specimen received for Influenza A/B Molecular testing Assess/Plan/Problems-Billing Assessment: 88 year old Male with history of atrial fibrillation, CVA, Cardiomyopathy here with pneumonia, demand ischemia. - Patient Problems (1) Pneumonia Current Visit: Yes Status: Acute Code(s): J18.9 - PNEUMONIA, UNSPECIFIED ORGANISM SNOMED Code(s): 692063491 Comment: Continue zosyn, continues to improve slowly. No SOB, on Room air. (2) Elevated troponin Current Visit: Yes Status: Acute Code(s): R74.8 - ABNORMAL LEVELS OF OTHER SERUM ENZYMES SNOMED Code(s): 263152786 Comment: Likely demand ischemia. Cardiology on board. Continue aspirin, also patient takes brilinta. Will start toprol 25mg XL daily (3) History of CVA (cerebrovascular accident) Current Visit: Yes Status: Acute Code(s): Z86.73 - PRSNL HX OF TIA (TIA), AND CEREB INFRC W/O RESID DEFICITS SNOMED Code(s): 432064736 Comment: Recent carotid stenting 02/25. Continue ASA, ticagrelor, statin. May be at his baseline. (4) Atrial fibrillation Current Visit: No Status: Acute Code(s): I48.91 - UNSPECIFIED ATRIAL FIBRILLATION SNOMED Code(s): 65433520 Comment: - S/p Watcham procedure - Aspirin, Brilinta. Today: 06/16/18: starting toprol 25mg XL. (5) Cardiomyopathy Current Visit: No Status: Acute Code(s): I42.9 - CARDIOMYOPATHY, UNSPECIFIED SNOMED Code(s): 12787239 Comment: Not new although precise prior LVEF not known to me. Records requested, none received as of 1/6 AM. Continue losartan. Hx CABG, stents, Watchman device. PPM (??ICD). (6) Anemia Current Visit: Yes Status: Acute Code(s): D64.9 - ANEMIA, UNSPECIFIED SNOMED Code(s): 657670159 Comment: Hb stable. will monitor for s/s of bleeding. (7) DNR (do not resuscitate) Current Visit: Yes Status: Acute Status and Disposition: await social worker aide/case managment to see patient, possible rehab.
[2018-06-16] MEDS: Atorvastatin* 40 MG TAB PO SCH (08:36)
[2018-06-16] MEDS: Aspirin 81 mg CHEW TAB* 81 MG TAB.CHEW PO SCH (08:36)
[2018-06-16] MEDS: Losartan TAB* 25 MG PO SCH (08:37)
[2018-06-16] MEDS: Metoprolol Succinate XL TAB* 25 MG PO SCH (08:37)
[2018-06-16] MEDS: Ticagrelor* 90 MG TAB PO SCH ×2 (08:38→20:57)
--- NOTE | 2018-06-16 16:36 | CONSULT ---
Palliative / Hospice Consult Ordering Provider: Ellen Larson - PCP Peggy - Subjective Code Status: DNR Advance Directives Location: [facility] EMR - History or Present Illness History or Present Illness: 88yo male presented to ER with vomiting blood, weakness altered mental status SOB and cough. Pt was found to have RML pneumonia. He was hospitalized in May for pneumonia. 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 His echo showed severe TR and moderate aortic stenosis with an EF 25-30%, severe pulmonary HTN. His swallow test showed no aspiration. No weight change. is health care proxy. Long discussion with pt who was non verbal and about options. She can not take care of him at home any longer and wanted information about hospice. As of now they are pursuing SNF placement. Lab Values: Abnormal Lab Results 06/14/18 06/15/18 06:00 05:30 Hem Pathologist Commnt Laboratory Last Values WBC 17.3 10^3/ul (3.5-10.8) H 06/15/18 05:30 RBC 3.22 10^6/ul (4.00-5.40) L 06/15/18 05:30 Hgb 9.0 g/dl (14.0-18.0) L 06/15/18 05:30 Hct 28 % (42-52) L 06/15/18 05:30 MCV 86 fL (80-94) 06/15/18 05:30 MCH 28 pg (27-31) 06/15/18 05:30 MCHC 33 g/dl (31-36) 06/15/18 05:30 RDW 16 % (10.5-15) H 06/15/18 05:30 Plt Count 123 10^3/ul (150-450) L 06/15/18 05:30 MPV 7.6 fL (7.4-10.4) 06/15/18 05:30 Neut % (Auto) 20.9 % 06/15/18 05:30 Lymph % (Auto) 69.4 % 06/15/18 05:30 Collier % (Auto) 3.7 % 06/15/18 05:30 Eos % (Auto) 5.8 % 06/15/18 05:30 Baso % (Auto) 0.2 % 06/15/18 05:30 Absolute Neuts (auto) 3.6 10^3/ul (1.5-7.7) 06/15/18 05:30 Absolute Lymphs (auto) 12.0 10^3/ul (1.0-4.8) H 06/15/18 05:30 Absolute Monos (auto) 0.6 10^3/ul (0-0.8) 06/15/18 05:30 Absolute Eos (auto) 1.0 10^3/ul (0-0.6) H 06/15/18 05:30 Absolute Basos (auto) 0 10^3/ul (0-0.2) 06/15/18 05:30 Absolute Nucleated RBC 0 10^3/ul 06/15/18 05:30 Nucleated RBC % 0.1 06/15/18 05:30 Smudge Cells Present 06/11/18 23:28 Polychromasia 1+ 06/14/18 06:00 Anisocytosis 1+ 06/15/18 05:30 Elliptocytes 1+ 06/15/18 05:30 Acanthocytes (Spur) 1+ 06/15/18 05:30 Hem Pathologist Commnt 06/15/18 05:30 INR (Anticoag Therapy) 1.05 (0.77-1.02) H 06/11/18 23:28 APTT 27.1 seconds (26.0-36.3) 06/11/18 23:28 Sodium 133 mmol/L (135-145) L 06/15/18 05:30 Potassium 4.0 mmol/L (3.5-5.0) 06/15/18 05:30 Chloride 104 mmol/L (101-111) 06/15/18 05:30 Carbon Dioxide 21 mmol/L (22-32) L 06/15/18 05:30 Anion Gap 8 mmol/L (2-11) 06/15/18 05:30 BUN 22 mg/dL (6-24) 06/15/18 05:30 Creatinine 0.79 mg/dL (0.67-1.17) 06/15/18 05:30 Est GFR ( Amer) 112.3 (>60) 06/15/18 05:30 Est GFR (Non-Af Amer) 92.8 (>60) 06/15/18 05:30 BUN/Creatinine Ratio 27.8 (8-20) H 06/15/18 05:30 Glucose 95 mg/dL (70-100) 06/15/18 05:30 Lactic Acid 0.6 mmol/L (0.5-2.0) 06/12/18 02:46 Calcium 8.6 mg/dL (8.6-10.3) 06/15/18 05:30 Total Bilirubin 1.00 mg/dL (0.2-1.0) 06/11/18 23:28 AST 23 U/L (13-39) 06/11/18 23:28 ALT 12 U/L (7-52) 06/11/18 23:28 Alkaline Phosphatase 72 U/L (34-104) 06/11/18 23:28 Troponin I 1.21 ng/mL (<0.04) H* 06/13/18 05:08 C-Reactive Protein 8.59 mg/L (<8.01) H 06/11/18 23:28 B-Natriuretic Peptide 845 pg/mL (<=100) H 06/11/18 23:28 Total Protein 5.7 g/dL (6.4-8.9) L 06/11/18 23:28 Albumin 3.7 g/dL (3.2-5.2) 06/11/18 23:28 Globulin 2.0 g/dL (2-4) 06/11/18 23:28 Albumin/Globulin Ratio 1.9 (1-3) 06/11/18 23:28 Triglycerides 43 mg/dL 06/12/18 03:41 Cholesterol 93 mg/dL 06/12/18 03:41 LDL Cholesterol 45 mg/dL 06/12/18 03:41 HDL Cholesterol 39.4 mg/dL 06/12/18 03:41 Urine Color Yellow 06/12/18 06:26 Urine Appearance Cloudy 06/12/18 06:26 Urine pH 5.0 (5-9) 06/12/18 06:26 Ur Specific [place] 1.018 (1.010-1.030) 06/12/18 06:26 Urine Protein Negative (Negative) 06/12/18 06:26 Urine Ketones Negative (Negative) 06/12/18 06:26 Urine Blood 2+ (Negative) A 06/12/18 06:26 Urine Nitrate Negative (Negative) 06/12/18 06:26 Urine Bilirubin Negative (Negative) 06/12/18 06:26 Urine Urobilinogen Negative (Negative) 06/12/18 06:26 Ur Leukocyte Esterase Negative (Negative) 06/12/18 06:26 Urine WBC (Auto) Trace(0-5/hpf) (Absent) 06/12/18 06:26 Urine RBC (Auto) 3+(>10/hpf) (Absent) A 06/12/18 06:26 Urine Bacteria Absent (Absent) 06/12/18 06:26 Urine Glucose Negative (Negative) 06/12/18 06:26 Influenza A (Rapid) Negative (Negative) 06/11/18 23:49 Influenza B (Rapid) Negative (Negative) 06/11/18 23:49 Blood Type A Positive 06/11/18 23:28 Antibody Screen Negative 06/11/18 23:28 - Objective Active Medications: Acetaminophen (Tylenol Tab*) 650 mg PO Q4H PRN PRN Reason: FEVER/PAIN Last Admin: 06/15/18 21:50 Dose: 650 mg Aspirin (Aspirin 81 Mg Chew Tab*) 81 mg PO QAM [facility] Last Admin: 06/16/18 08:36 Dose: 81 mg Atorvastatin Calcium (Lipitor*) 40 mg PO DAILY [facility] Last Admin: 06/16/18 08:36 Dose: 40 mg Docusate Sodium (Colace Cap*) 100 mg PO BID PRN PRN Reason: CONSTIPATION Piperacillin Sod/Tazobactam (Sod 3.375 gm/ Sodium Chloride) 100 mls @ 25 mls/ hr IVPB Q8H [facility] Last Admin: 06/16/18 05:59 Dose: 25 mls/hr Losartan Potassium (Cozaar Tab*) 50 mg PO QAM [facility] Last Admin: 06/16/18 08:37 Dose: 50 mg Magnesium Hydroxide (Milk Of Magnesia Liq*) 30 ml PO Q4H PRN PRN Reason: CONSTIPATION Metoprolol Succinate (Toprol Xl Tab*) 25 mg PO DAILY [facility] Last Admin: 06/16/18 08:37 Dose: 25 mg Ondansetron HCl (Zofran Inj*) 4 mg IV Q4H PRN PRN Reason: NAUSEA/VOMITING Pantoprazole Sodium (Protonix Iv*) 40 mg IV Q24H [facility] Last Admin: 06/16/18 03:15 Dose: 40 mg Senna (Senokot Tab*) 1 tab PO BID PRN PRN Reason: CONSTIPATION Ticagrelor (Brilinta*) 90 mg PO BID [facility] Last Admin: 06/16/18 08:38 Dose: 90 mg Vital Signs: Vital Signs: Temp Pulse Resp BP Pulse Ox 97.7 F 63 22 168/72 100 06/16/18 16:00 06/16/18 13:00 06/16/18 13:00 06/16/18 12:16 06/16/18 13:00 Patient Weight: Weight 77.2 kg Intake and Output: Intake & Output 06/14/18 06/15/18 06/16/18 06/17/18 06:59 06:59 06:59 06:59 Intake Total 808 2232 1270 50 Output Total 1075 1200 625 Balance -267 1032 645 50 Weight 78.239 kg 80 kg 77.2 kg Intake: IV Fluids 233 46 163 ABX - PIPERACILLIN 96 18 38 NS (0.9%) 137 28 125 IVPB 135 336 227 ABX - PIPERACILLIN 135 336 227 Oral 440 1850 880 50 Output: Urine 1075 1200 625 Other: Estimated Void Medium Date of Last Bowel 06/14/18 06/15/18 06/16/18 Movement # Bowel Movements 1 1 1 Estimated Stool Amount Large Medium Medium # Voids 2 ADLs: Meal Record Start: 06/12/18 03: 09 Freq: 09,13,18 Status: Inactive Protocol: Created 06/12/18 03:09 System (Rec: 06/12/18 03:09 System ICU-C25) Document 06/12/18 09:00 [id number] (Rec: 06/12/18 09:46 [id number] ICU-C16) Document 06/12/18 13:00 [id number] (Rec: 06/12/18 13:14 [id number] ICU-C16) Document 06/12/18 18:00 [id number] (Rec: 06/12/18 22:40 [id number] ICU-C07) Document 06/13/18 09:00 [id number] (Rec: 06/13/18 10:45 [id number] ICU-C07) Document 06/13/18 13:00 [id number] (Rec: 06/13/18 14:20 [id number] ICU-C07) Document 06/14/18 09:00 [id number] (Rec: 06/14/18 09:41 [id number] ICU-C14) ADLs: Meal Record Start: 06/14/18 10: 14 Freq: DAILY@0900,1400,1800 Status: Active Protocol: Created 06/14/18 10:14 [id number] (Rec: 06/14/18 10:14 [id number] ICU-C07) Document 06/14/18 14:00 BSZ1743 (Rec: 06/14/18 14:22 [id number] ICU-C07) Document 06/14/18 18:00 [id number] (Rec: 06/14/18 18:49 [id number] ICU-C07) Document 06/15/18 09:00 RNN7252 (Rec: 06/15/18 09:35 [id number] ICU-C14) Document 06/15/18 14:00 VUB2771 (Rec: 06/15/18 14:44 [id number] ICU-C07) Document 06/15/18 18:00 [id number] (Rec: 06/15/18 18:30 [id number] ICU-C07) Document 06/16/18 09:00 JYI1716 (Rec: 06/16/18 12:35 [id number] ICU-C07) Intake and Output Start: 06/11/18 22: 39 Freq: Status: Active Protocol: Created 06/11/18 22:39 System (Rec: 06/11/18 22:39 System [id number]) Intake and Output Start: 06/12/18 03: 09 Freq: 06,14,2200 Status: Inactive Protocol: Created 06/12/18 03:09 System (Rec: 06/12/18 03:09 System ICU-C25) Document 06/12/18 04:00 [id number] (Rec: 06/12/18 05:14 [id number] ICU-C12) Document 06/12/18 05:00 BOQ5951 (Rec: 06/12/18 05:18 [id number] ICU-C12) Document 06/12/18 05:43 [id number] (Rec: 06/12/18 05:43 [id number] ICU-C12) Document 06/12/18 07:00 PAD6646 (Rec: 06/12/18 07:03 SEI1365 ICU-C12) Document 06/12/18 14:55 MDE4403 (Rec: 06/12/18 14:55 LZD2306 ICU-C16) Document 06/12/18 22:00 DRH2713 (Rec: 06/12/18 23:16 INI7195 ICU-C07) Document 06/13/18 06:00 XKV1496 (Rec: 06/13/18 06:22 [id number] ICU-C07) Document 06/13/18 08:01 ZQB8739 (Rec: 06/13/18 08:01 [id number] ICU-C07) Document 06/13/18 14:00 [id number] (Rec: 06/13/18 14:20 [id number] ICU-C07) Document 06/13/18 16:37 [id number] (Rec: 06/13/18 16:37 VEZ0051 ICU-C07) Document 06/13/18 22:00 RFB1168 (Rec: 06/13/18 22:02 PWN0500 ICU-C07) Document 06/14/18 02:27 [id number] (Rec: 06/14/18 02:27 [id number] ICU-C07) Document 06/14/18 04:35 [id number] (Rec: 06/14/18 04:35 [id number] ICU-C07) Intake and Output Start: 06/14/18 10: 14 Freq: DAILY@0600,1400,2200 Status: Active Protocol: Created 06/14/18 10:14 [id number] (Rec: 06/14/18 10:14 [id number] ICU-C07) Document 06/14/18 14:00 RCJ1503 (Rec: 06/14/18 14:22 [id number] ICU-C07) Document 06/14/18 21:27 CGS0576 (Rec: 06/14/18 21:27 ZHH1933 ICU-C07) Document 06/14/18 22:00 MPQ1757 (Rec: 06/15/18 06:26 [id number] ICU-C07) Document 06/15/18 00:15 [id number] (Rec: 06/15/18 00:23 DAT8542 ICU-C07) Document 06/15/18 02:48 YLL1351 (Rec: 06/15/18 02:48 WGG1961 ICU-C07) Document 06/15/18 05:01 DMX5316 (Rec: 06/15/18 05:02 NVL0469 ICU-C07) Document 06/15/18 10:34 RER8264 (Rec: 06/15/18 10:34 [id number] ICU-C07) Document 06/15/18 14:00 FXH6523 (Rec: 06/15/18 14:45 UTJ6649 ICU-C07) Document 06/15/18 17:24 [id number] (Rec: 06/15/18 17:24 TQX5330 ICU-C07) Document 06/15/18 20:11 TCO5928 (Rec: 06/15/18 20:11 [id number] ICU-C07) Document 06/15/18 23:43 FKA3555 (Rec: 06/15/18 23:44 [id number] ICU-C07) Document 06/16/18 03:57 [id number] (Rec: 06/16/18 03:57 [id number] ICU-C07) Document 06/16/18 06:00 JFJ1517 (Rec: 06/16/18 06:02 [id number] ICU-M18) Head: Normal Eyes: No Scleral Icterus Neck: NL Appearance and Movements; NL JVP Cardiovascular: - - irregularly irregular with systolic murmur Abdominal: NL Sounds; No Tenderness; No Distention Extremities: No Edema, No Clubbing, Cyanosis, - Neurological: Alert and Oriented x 3 - Alert but can not speak, NL Sensation - Assessment Assessment: 88 yo male with new RML pneumonia, afib, severe pulmonary HTN, moderate , severe TR s/p CVA and EF 25-30% - Plan Consult Plan (MU): Hospice Plan: Long discussion with and patient. Her mother used hospice when she so she is familiar with it. They live in [place] [facility] so would use [facility]. is no longer able to care for him at home, I explained Hospice provides 3hr of home care M-F and a weekly nurse visit plus all the emotional support and is for people who have less than 6 months left and do not want anymore medical intervention. Pt is already a DNR/DNI. He has a bed at [facility]. I explained that he could receive hospice while in a skilled nursing but hospice doesn't cover the room & board charge and they would have that charge with SNF. They may be interested in short term rehab. wants to schedule a meeting to talk with the [id number] which will be Wed at 2:30pm. I think pt would qualify for hospice but wouldn't be able to do it with rehab. Also stressed to talk with sw about SNF financial options. - Time On Unit Date of Evaluation: 06/16/18 Hospice Consult Time in: 03:00 Hospice Consult Time Out: 04:30 Hospice Consult Time Total: 90 > 50% of Time Spend In Counseling or Coordinating Care: Yes
[2018-06-17] MEDS: Pantoprazole IV* 40 MG IV SCH (02:54)
[2018-06-17] MEDS: Piperacillin/Tazobac ADVAN(*) 3.375 GM in NS 0.9% 100 ML* 100 ML IVPB SCH ×3 (05:53→21:12)
[2018-06-17 07:25] LABS: Hematocrit 30 % (42-52); Hemoglobin 9.7 g/dl (14.0-18.0); Mean Corpuscular HGB Conc 33 g/dl (31-36); Mean Corpuscular Hemoglobin 28 pg (27-31); Mean Corpuscular Volume 85 fL (80-94); Platelet Count 192 10^3/ul (150-450); Red Blood Count 3.53 10^6/ul (4.00-5.40); Red Cell Distribution Width 16 % (10.5-15)
[2018-06-17 07:42] LABS: BUN/Creatinine Ratio 22.5 (8-20); Calcium 8.5 mg/dL (8.6-10.3); EGFR African American 110.6 (>60); EGFR Non-African American 91.4 (>60); Potassium 4.5 mmol/L (3.5-5.0)
[2018-06-17] MEDS: Ticagrelor* 90 MG TAB PO SCH ×2 (08:14→21:14)
[2018-06-17] MEDS: Aspirin 81 mg CHEW TAB* 81 MG TAB.CHEW PO SCH (08:15)
[2018-06-17] MEDS: Losartan TAB* 25 MG PO SCH (08:16)
[2018-06-17] MEDS: Metoprolol Succinate XL TAB* 25 MG PO SCH (08:17)
[2018-06-17] MEDS: Atorvastatin* 40 MG TAB PO SCH (08:17)
--- NOTE | 2018-06-17 08:34 | PN ---
Subjective Date of Service: 06/17/18 Interval History: Patient offers no complaints. Repoprts no diarrhea, no abdominal pain, no shortness of breath, continues to cough. Objective Active Medications: Acetaminophen (Tylenol Tab*) 650 mg PO Q4H PRN PRN Reason: FEVER/PAIN Last Admin: 06/15/18 21:50 Dose: 650 mg Aspirin (Aspirin 81 Mg Chew Tab*) [facility] Last Admin: 06/17/18 08:15 Dose: 81 mg Atorvastatin Calcium (Lipitor*) 40 mg PO DAILY [facility] Last Admin: 06/17/18 08:17 Dose: 40 mg Docusate Sodium (Colace Cap*) 100 mg PO BID PRN PRN Reason: CONSTIPATION Piperacillin Sod/Tazobactam (Sod 3.375 gm/ Sodium Chloride) 100 mls @ 25 mls/ hr IVPB Q8H [facility] Last Admin: 06/17/18 05:53 Dose: 25 mls/hr Losartan Potassium (Cozaar Tab*) 50 mg PO [facility] Last Admin: 06/17/18 08:16 Dose: 50 mg Magnesium Hydroxide (Milk Of Urban[place] Liq*) 30 ml PO Q4H PRN PRN Reason: CONSTIPATION Metoprolol Succinate (Toprol Xl Tab*) 25 mg PO DAILY [facility] Last Admin: 06/17/18 08:17 Dose: 25 mg Ondansetron HCl (Zofran Inj*) 4 mg IV Q4H PRN PRN Reason: NAUSEA/VOMITING Pantoprazole Sodium (Protonix Iv*) 40 mg IV Q24H [facility] Last Admin: 06/17/18 02:54 Dose: 40 mg Senna (Senokot Tab*) 1 tab PO BID PRN PRN Reason: CONSTIPATION Ticagrelor (Brilinta*) 90 mg PO BID [facility] Last Admin: 06/17/18 08:14 Dose: 90 mg Vital Signs - 8 hr 06/17/18 06/17/18 03:45 07:34 Temperature 97.8 F 99.1 F Pulse Rate 73 61 Respiratory 20 20 Rate Blood Pressure 145/62 144/66 (mmHg) O2 Sat by Pulse 93 95 Oximetry Oxygen Devices in Use Now: None Appearance: Elderly male. eating breakfast, not in distress Respiratory: - - mild rhonchi Cardiovascular: RRR, - - systolic murmur at the right upper sternal border Abdominal: NL Sounds; No Tenderness; No Distention Extremities: - - trace lower extremity edema Neurological: Alert and Oriented x 3 Result Diagrams: 06/17/18 07:14 06/17/18 07:14 Microbiology and Other Data: Microbiology 06/12/18 06:26 Legionella Urinary Antigen - Final Urine Negative Legionella Antigen Streptococcus pneumoniae Ag Screen - Final Negative S. pneumo Antigen 06/12/18 03:30 Nasal Screen MRSA (PCR) - Final Nasal Mrsa Not Detected 06/11/18 23:29 Influenza Types A,B Antigen - Final Nasopharyngeal Specimen received for Influenza A/B Molecular testing Assess/Plan/Problems-Billing Assessment: 88 year old Male with history of atrial fibrillation, CVA, Cardiomyopathy, CLL, malignant melanoma here with pneumonia, demand ischemia. - Patient Problems (1) Leukocytosis Current Visit: Yes Status: Acute Code(s): D72.829 - ELEVATED WHITE BLOOD CELL COUNT, UNSPECIFIED SNOMED Code(s): 753025499 Comment: Significantly elevated WBC this morning, patient clinically does not appear toxic, no fever. Will check repeat WBC w/ diff and blood cultures, no diarrhea. will get a repeat CXR as well. will monitor clinically, and at this time continue zosyn for pneumnonia. patient does have history of CLL and malignant melanoma. (2) Pneumonia Current Visit: Yes Status: Acute Code(s): J18.9 - PNEUMONIA, UNSPECIFIED ORGANISM SNOMED Code(s): 412364005 Comment: Continue zosyn, continues to improve slowly. No SOB, on Room air. (3) Elevated troponin Current Visit: Yes Status: Acute Code(s): R74.8 - ABNORMAL LEVELS OF OTHER SERUM ENZYMES SNOMED Code(s): 478836521 Comment: Likely demand ischemia. Cardiology on board. Continue aspirin, also patient takes brilinta. Toprol 25mg XL started 06/16/18. (4) History of CVA (cerebrovascular accident) Current Visit: Yes Status: Acute Code(s): Z86.73 - PRSNL HX OF TIA (TIA), AND CEREB INFRC W/O RESID DEFICITS SNOMED Code(s): 875305899 Comment: Recent carotid stenting 02/25. Continue ASA, ticagrelor, statin. May be at his baseline. (5) Atrial fibrillation Current Visit: No Status: Acute Code(s): I48.91 - UNSPECIFIED ATRIAL FIBRILLATION SNOMED Code(s): 81677723 Comment: - S/p Watcham procedure - Aspirin, Brilinta. Today: 06/16/18: starting toprol 25mg XL. (6) Cardiomyopathy Current Visit: No Status: Acute Code(s): I42.9 - CARDIOMYOPATHY, UNSPECIFIED SNOMED Code(s): 37428445 Comment: Not new although precise prior LVEF not known to me. Continue losartan and toprol. Hx CABG, stents, Watchman device. PPM (??ICD). (7) Anemia Current Visit: Yes Status: Acute Code(s): D64.9 - ANEMIA, UNSPECIFIED SNOMED Code(s): 421544523 Comment: Hb stable. will monitor for s/s of bleeding. (8) DNR (do not resuscitate) Current Visit: Yes Status: Acute Status and Disposition: family wanting patient to go home w/ care, and possibly hospice.
[2018-06-17 12:55] LABS: Hematocrit 27 % (42-52); Hemoglobin 8.9 g/dl (14.0-18.0); Mean Corpuscular HGB Conc 33 g/dl (31-36); Mean Corpuscular Hemoglobin 28 pg (27-31); Mean Corpuscular Volume 85 fL (80-94); Mean Platelet Volume 7.1 fL (7.4-10.4); Platelet Count 174 10^3/ul (150-450); Red Cell Distribution Width 15 % (10.5-15); White Blood Count 22.8 10^3/ul (3.5-10.8)
[2018-06-17 13:59] LABS: ABS Basophils 0.1 10^3/ul (0-0.2); ABS Eosinophils 0.9 10^3/ul (0-0.6); ABS Monocytes 0.9 10^3/ul (0-0.8); ABS Neutrophils 4.9 10^3/ul (1.5-7.7); ABS Nucleated RBC 0 10^3/ul; Eosinophil % 3.8 %; Lymphocyte % 70.3 %; Nucleated Red Blood Cells % 0.1
[2018-06-18] MEDS: Pantoprazole IV* 40 MG IV SCH (03:59)
[2018-06-18] MEDS: Piperacillin/Tazobac ADVAN(*) 3.375 GM in NS 0.9% 100 ML* 100 ML IVPB SCH ×3 (05:23→21:22)
[2018-06-18 05:54] LABS: Hematocrit 29 % (42-52); Hemoglobin 9.3 g/dl (14.0-18.0); Mean Corpuscular HGB Conc 32 g/dl (31-36); Mean Corpuscular Hemoglobin 27 pg (27-31); Mean Corpuscular Volume 84 fL (80-94); Mean Platelet Volume 6.9 fL (7.4-10.4); Platelet Count 194 10^3/ul (150-450); Red Cell Distribution Width 16 % (10.5-15); White Blood Count 32.3 10^3/ul (3.5-10.8)
[2018-06-18 06:15] LABS: Albumin/Globulin Ratio 1.5 (1-3); BUN/Creatinine Ratio 24.4 (8-20); Calcium 8.1 mg/dL (8.6-10.3); EGFR African American 113.9 (>60); EGFR Non-African American 94.2 (>60); Potassium 4.2 mmol/L (3.5-5.0); Total Bilirubin 0.8 mg/dL (0.2-1.0)
[2018-06-18 06:32] LABS: ABS Basophils 0.1 10^3/ul (0-0.2); ABS Eosinophils 1.2 10^3/ul (0-0.6); ABS Lymphocytes 24.3 10^3/ul (1.0-4.8); ABS Monocytes 1.2 10^3/ul (0-0.8); ABS Neutrophils 5.5 10^3/ul (1.5-7.7); ABS Nucleated RBC 0.1 10^3/ul; Eosinophil % 3.8 %; Lymphocyte % 75.2 %; Nucleated Red Blood Cells % 0.2
[2018-06-18 06:33] LABS: Acanthocytes 2+; Polychromasia 1+
[2018-06-18] MEDS: Metoprolol Succinate XL TAB* 25 MG PO SCH (10:32)
[2018-06-18] MEDS: Aspirin 81 mg CHEW TAB* 81 MG TAB.CHEW PO SCH (10:33)
[2018-06-18] MEDS: Ticagrelor* 90 MG TAB PO SCH ×2 (10:33→21:22)
[2018-06-18] MEDS: Losartan TAB* 25 MG PO SCH (10:33)
[2018-06-18] MEDS: Atorvastatin* 40 MG TAB PO SCH (10:33)
--- NOTE | 2018-06-18 10:54 | CONSULT ---
Palliative / Hospice Consult - Subjective Code Status: DNR Advance Directives Location: [facility] [place] - History or Present Illness Lab Values: Abnormal Lab Results 06/17/18 06/18/18 06/18/18 12:32 05:44 05:44 WBC 22.8 H 32.3 H RBC 3.20 L 3.40 L Hgb 8.9 L 9.3 L Hct 27 L 29 L MCV 85 84 MCH 28 27 MCHC 33 32 RDW 15 16 H Plt Count 174 194 MPV 7.1 L 6.9 L Neut % (Auto) 21.6 17.0 Lymph % (Auto) 70.3 75.2 [place] % (Auto) 3.9 3.8 Eos % (Auto) 3.8 3.8 Baso % (Auto) 0.4 0.2 Absolute Neuts (auto) 4.9 5.5 Absolute Lymphs (auto) 16.0 H 24.3 H Absolute Monos (auto) 0.9 H 1.2 H Absolute Eos (auto) 0.9 H 1.2 H Absolute Basos (auto) 0.1 0.1 Absolute Nucleated RBC 0 0.1 Nucleated RBC % 0.1 0.2 Smudge Cells Present Polychromasia 1+ Acanthocytes (Spur) 2+ Hem Pathologist Commnt Sodium 131 L Potassium 4.2 Chloride 103 Carbon Dioxide 22 Anion Gap 6 BUN 19 Creatinine 0.78 Est GFR ( Amer) 113.9 Est GFR (Non-Af Amer) 94.2 BUN/Creatinine Ratio 24.4 H Glucose 96 Calcium 8.1 L Total Bilirubin 0.80 AST 18 ALT 16 Alkaline Phosphatase 66 Total Protein 5.0 L Albumin 3.0 L Globulin 2.0 Albumin/Globulin Ratio 1.5 Laboratory Last Values WBC 32.3 10^3/ul (3.5-10.8) H 06/18/18 05:44 RBC 3.40 10^6/ul (4.00-5.40) L 06/18/18 05:44 Hgb 9.3 g/dl (14.0-18.0) L 06/18/18 05:44 Hct 29 % (42-52) L 06/18/18 05:44 MCV 84 fL (80-94) 06/18/18 05:44 MCH 27 pg (27-31) 06/18/18 05:44 MCHC 32 g/dl (31-36) 06/18/18 05:44 RDW 16 % (10.5-15) H 06/18/18 05:44 Plt Count 194 10^3/ul (150-450) 06/18/18 05:44 MPV 6.9 fL (7.4-10.4) L 06/18/18 05:44 Neut % (Auto) 17.0 % 06/18/18 05:44 Lymph % (Auto) 75.2 % 06/18/18 05:44 [place] % (Auto) 3.8 % 06/18/18 05:44 Eos % (Auto) 3.8 % 06/18/18 05:44 Baso % (Auto) 0.2 % 06/18/18 05:44 Absolute Neuts (auto) 5.5 10^3/ul (1.5-7.7) 06/18/18 05:44 Absolute Lymphs (auto) 24.3 10^3/ul (1.0-4.8) H 06/18/18 05:44 Absolute Monos (auto) 1.2 10^3/ul (0-0.8) H 06/18/18 05:44 Absolute Eos (auto) 1.2 10^3/ul (0-0.6) H 06/18/18 05:44 Absolute Basos (auto) 0.1 10^3/ul (0-0.2) 06/18/18 05:44 Absolute Nucleated RBC 0.1 10^3/ul 06/18/18 05:44 Nucleated RBC % 0.2 06/18/18 05:44 Smudge Cells Present 06/18/18 05:44 Polychromasia 1+ 06/18/18 05:44 Anisocytosis 1+ 06/15/18 05:30 Elliptocytes 1+ 06/15/18 05:30 Acanthocytes (Spur) 2+ 06/18/18 05:44 Hem Pathologist Commnt 06/17/18 12:32 INR (Anticoag Therapy) 1.05 (0.77-1.02) H 06/11/18 23:28 APTT 27.1 seconds (26.0-36.3) 06/11/18 23:28 Sodium 131 mmol/L (135-145) L 06/18/18 05:44 Potassium 4.2 mmol/L (3.5-5.0) 06/18/18 05:44 Chloride 103 mmol/L (101-111) 06/18/18 05:44 Carbon Dioxide 22 mmol/L (22-32) 06/18/18 05:44 Anion Gap 6 mmol/L (2-11) 06/18/18 05:44 BUN 19 mg/dL (6-24) 06/18/18 05:44 Creatinine 0.78 mg/dL (0.67-1.17) 06/18/18 05:44 Est GFR ( Amer) 113.9 (>60) 06/18/18 05:44 Est GFR (Non-Af Amer) 94.2 (>60) 06/18/18 05:44 BUN/Creatinine Ratio 24.4 (8-20) H 06/18/18 05:44 Glucose 96 mg/dL (70-100) 06/18/18 05:44 Lactic Acid 0.6 mmol/L (0.5-2.0) 06/12/18 02:46 Calcium 8.1 mg/dL (8.6-10.3) L 06/18/18 05:44 Total Bilirubin 0.80 mg/dL (0.2-1.0) 06/18/18 05:44 AST 18 U/L (13-39) 06/18/18 05:44 ALT 16 U/L (7-52) 06/18/18 05:44 Alkaline Phosphatase 66 U/L (34-104) 06/18/18 05:44 Troponin I 1.21 ng/mL (<0.04) H* 06/13/18 05:08 C-Reactive Protein 8.59 mg/L (<8.01) H 06/11/18 23:28 B-Natriuretic Peptide 845 pg/mL (<=100) H 06/11/18 23:28 Total Protein 5.0 g/dL (6.4-8.9) L 06/18/18 05:44 Albumin 3.0 g/dL (3.2-5.2) L 06/18/18 05:44 Globulin 2.0 g/dL (2-4) 06/18/18 05:44 Albumin/Globulin Ratio 1.5 (1-3) 06/18/18 05:44 Triglycerides 43 mg/dL 06/12/18 03:41 Cholesterol 93 mg/dL 06/12/18 03:41 LDL Cholesterol 45 mg/dL 06/12/18 03:41 HDL Cholesterol 39.4 mg/dL 06/12/18 03:41 Urine Color Yellow 06/12/18 06:26 Urine Appearance Cloudy 06/12/18 06:26 Urine pH 5.0 (5-9) 06/12/18 06:26 Ur Specific [place] 1.018 (1.010-1.030) 06/12/18 06:26 Urine Protein Negative (Negative) 06/12/18 06:26 Urine Ketones Negative (Negative) 06/12/18 06:26 Urine Blood 2+ (Negative) A 06/12/18 06:26 Urine Nitrate Negative (Negative) 06/12/18 06:26 Urine Bilirubin Negative (Negative) 06/12/18 06:26 Urine Urobilinogen Negative (Negative) 06/12/18 06:26 Ur Leukocyte Esterase Negative (Negative) 06/12/18 06:26 Urine WBC (Auto) Trace(0-5/hpf) (Absent) 06/12/18 06:26 Urine RBC (Auto) 3+(>10/hpf) (Absent) A 06/12/18 06:26 Urine Bacteria Absent (Absent) 06/12/18 06:26 Urine Glucose Negative (Negative) 06/12/18 06:26 Influenza A (Rapid) Negative (Negative) 06/11/18 23:49 Influenza B (Rapid) Negative (Negative) 06/11/18 23:49 Blood Type A Positive 06/11/18 23:28 Antibody Screen Negative 06/11/18 23:28 - Objective Active Medications: Acetaminophen (Tylenol Tab*) 650 mg PO Q4H PRN PRN Reason: FEVER/PAIN Last Admin: 06/15/18 21:50 Dose: 650 mg Aspirin (Aspirin 81 Mg Chew Tab*) 81 mg PO QAM [facility] Last Admin: 06/18/18 10:33 Dose: 81 mg Atorvastatin Calcium (Lipitor*) 40 mg PO DAILY [facility] Last Admin: 06/18/18 10:33 Dose: 40 mg Docusate Sodium (Colace Cap*) 100 mg PO BID PRN PRN Reason: CONSTIPATION Piperacillin Sod/Tazobactam (Sod 3.375 gm/ Sodium Chloride) 100 mls @ 25 mls/ hr IVPB Q8H [facility] Last Admin: 06/18/18 05:23 Dose: 25 mls/hr Losartan Potassium (Cozaar Tab*) 50 mg PO QAM [facility] Last Admin: 06/18/18 10:33 Dose: 50 mg Magnesium Hydroxide (Milk Of Magnesia Liq*) 30 ml PO Q4H PRN PRN Reason: CONSTIPATION Metoprolol Succinate (Toprol Xl Tab*) 25 mg PO DAILY [facility] Last Admin: 06/18/18 10:32 Dose: 25 mg Ondansetron HCl (Zofran Inj*) 4 mg IV Q4H PRN PRN Reason: NAUSEA/VOMITING Pantoprazole Sodium (Protonix Iv*) 40 mg IV Q24H [facility] Last Admin: 06/18/18 03:59 Dose: 40 mg Senna (Senokot Tab*) 1 tab PO BID PRN PRN Reason: CONSTIPATION Ticagrelor (Brilinta*) 90 mg PO BID [facility] Last Admin: 06/18/18 10:33 Dose: 90 mg Vital Signs: Vital Signs: Temp Pulse Resp BP Pulse Ox 98.6 F 66 20 159/63 96 06/18/18 04:02 06/18/18 04:02 06/18/18 04:02 06/18/18 04:02 06/18/18 04:02 Patient Weight: Weight 77.2 kg Intake and Output: Intake & Output 06/16/18 06/17/18 06/18/18 06/19/18 06:59 06:59 06:59 06:59 Intake Total 1270 837.7 996 Output Total 625 800 Balance 645 37.7 996 Weight 77.2 kg Intake: IV Fluids 163 20.7 ABX - PIPERACILLIN 38 NS (0.9%) 125 20.7 IVPB 227 197 ABX - PIPERACILLIN 227 197 Oral 880 620 996 Output: Urine 625 800 Other: Estimated Void Medium Small Date of Last Bowel 06/16/18 06/26/18 Movement # Bowel Movements 1 1 1 Estimated Stool Amount Medium Small Medium # Voids 2 0 1 ADLs: Meal Record Start: 06/12/18 03: 09 Freq: ,13,18 Status: Inactive Protocol: Created 06/12/18 03:09 System (Rec: 06/12/18 03:09 System ICU-C25) Document 06/12/18 09:00 [id number] (Rec: 06/12/18 09:46 [id number] ICU-C16) Document 06/12/18 13:00 [id number] (Rec: 06/12/18 13:14 [id number] ICU-C16) Document 06/12/18 18:00 [id number] (Rec: 06/12/18 22:40 [id number] ICU-C07) Document 06/13/18 09:00 YGJ3609 (Rec: 06/13/18 10:45 [id number] ICU-C07) Document 06/13/18 13:00 PNF9517 (Rec: 06/13/18 14:20 [id number] ICU-C07) Document 06/14/18 09:00 WVZ9322 (Rec: 06/14/18 09:41 [id number] ICU-C14) ADLs: Meal Record Start: 06/14/18 10: 14 Freq: DAILY@0900,1400,1800 Status: Active Protocol: Created 06/14/18 10:14 [id number] (Rec: 06/14/18 10:14 [id number] ICU-C07) Document 06/14/18 14:00 ZZA3427 (Rec: 06/14/18 14:22 [id number] ICU-C07) Document 06/14/18 18:00 PEH0532 (Rec: 06/14/18 18:49 [id number] ICU-C07) Document 06/15/18 09:00 IJW3610 (Rec: 06/15/18 09:35 [id number] ICU-C14) Document 06/15/18 14:00 HPE8849 (Rec: 06/15/18 14:44 VLH7388 ICU-C07) Document 06/15/18 18:00 JTD0218 (Rec: 06/15/18 18:30 IQW3089 ICU-C07) Document 06/16/18 09:00 PUG9403 (Rec: 06/16/18 12:35 [id number] ICU-C07) Document 06/16/18 14:00 RJW1078 (Rec: 06/16/18 17:15 KFI1766 ICU-C06) Document 06/16/18 18:00 RMH8728 (Rec: 06/16/18 18:45 [id number] ICU-C07) Document 06/17/18 09:00 OIQ4729 (Rec: 06/17/18 10:51 UYB1751 TELE-C10) Document 06/17/18 14:00 KWS3817 (Rec: 06/17/18 14:50 ZKW0719 TELE-C10) Document 06/17/18 17:58 EOZ7661 (Rec: 06/17/18 17:58 [id number] TELE-C10) Intake and Output Start: 06/11/18 22: 39 Freq: Status: Active Protocol: Created 06/11/18 22:39 System (Rec: 06/11/18 22:39 System [id number]-C14) Intake and Output Start: 06/12/18 03: 09 Freq: 06,14,2200 Status: Inactive Protocol: Created 06/12/18 03:09 System (Rec: 06/12/18 03:09 System ICU-C25) Document 06/12/18 04:00 TDZ8994 (Rec: 06/12/18 05:14 RBD6157 ICU-C12) Document 06/12/18 05:00 NWM3693 (Rec: 06/12/18 05:18 FSY3561 ICU-C12) Document 06/12/18 05:43 VCS8225 (Rec: 06/12/18 05:43 URQ6231 ICU-C12) Document 06/12/18 07:00 YRR3918 (Rec: 06/12/18 07:03 UUS9379 ICU-C12) Document 06/12/18 14:55 XOR7266 (Rec: 06/12/18 14:55 EHC1220 ICU-C16) Document 06/12/18 22:00 OQF8505 (Rec: 06/12/18 23:16 SZX2818 ICU-C07) Document 06/13/18 06:00 ZXP2863 (Rec: 06/13/18 06:22 ZNO0411 ICU-C07) Document 06/13/18 08:01 TDH4716 (Rec: 06/13/18 08:01 NNQ2616 ICU-C07) Document 06/13/18 14:00 GMG0638 (Rec: 06/13/18 14:20 KPF6731 ICU-C07) Document 06/13/18 16:37 QDQ7958 (Rec: 06/13/18 16:37 DMW8201 ICU-C07) Document 06/13/18 22:00 YXJ0710 (Rec: 06/13/18 22:02 IVA0697 ICU-C07) Document 06/14/18 02:27 WXK7256 (Rec: 06/14/18 02:27 [id number] ICU-C07) Document 06/14/18 04:35 RUI6245 (Rec: 06/14/18 04:35 EHB9934 ICU-C07) Intake and Output Start: 06/14/18 10: 14 Freq: DAILY@0600,1400,2200 Status: Active Protocol: Created 06/14/18 10:14 YHC8565 (Rec: 06/14/18 10:14 [id number] ICU-C07) Document 06/14/18 14:00 OUT9905 (Rec: 06/14/18 14:22 [id number] ICU-C07) Document 06/14/18 21:27 LHD1023 (Rec: 06/14/18 21:27 HMF0503 ICU-C07) Document 06/14/18 22:00 QLS2692 (Rec: 06/15/18 06:26 NTM1946 ICU-C07) Document 06/15/18 00:15 YOV0896 (Rec: 06/15/18 00:23 CIA6679 ICU-C07) Document 06/15/18 02:48 DEB8735 (Rec: 06/15/18 02:48 LYD7212 ICU-C07) Document 06/15/18 05:01 EJP9844 (Rec: 06/15/18 05:02 CNN3739 ICU-C07) Document 06/15/18 10:34 FMO0952 (Rec: 06/15/18 10:34 CYX1084 ICU-C07) Document 06/15/18 14:00 KRM2528 (Rec: 06/15/18 14:45 [id number] ICU-C07) Document 06/15/18 17:24 FBZ1221 (Rec: 06/15/18 17:24 WCW7963 ICU-C07) Document 06/15/18 20:11 LTZ5068 (Rec: 06/15/18 20:11 [id number] ICU-C07) Document 06/15/18 23:43 NOJ1407 (Rec: 06/15/18 23:44 BIK7640 ICU-C07) Document 06/16/18 03:57 DQJ1267 (Rec: 06/16/18 03:57 HGH5724 ICU-C07) Document 06/16/18 06:00 YGI6591 (Rec: 06/16/18 06:02 RCL0792 ICU-M18) Document 06/16/18 14:00 GLE7000 (Rec: 06/16/18 17:19 [id number] ICU-C06) Document 06/16/18 16:00 FQN9248 (Rec: 06/16/18 17:22 BSG6061 ICU-C06) Document 06/16/18 17:22 ZWX5174 (Rec: 06/16/18 17:23 WBM3128 ICU-C06) Document 06/17/18 06:00 TTI0980 (Rec: 06/17/18 06:37 XIY9092 TELE-C32) Document 06/17/18 14:00 QUM0695 (Rec: 06/17/18 14:50 KAK1300 TELE-C10) Document 06/17/18 22:00 PXK6973 (Rec: 06/17/18 22:21 KNI6318 TELE-C10) Document 06/18/18 06:00 SYL3332 (Rec: 06/18/18 06:26 KTM6673 TELE-C34) Head: Normal Eyes: No Scleral Icterus Neck: NL Appearance and Movements; NL JVP Cardiovascular: RRR, - - systolic murmur at the right upper sternal border Abdominal: NL Sounds; No Tenderness; No Distention Extremities: - - trace lower extremity edema Neurological: Alert and Oriented x 3
--- NOTE | 2018-06-18 11:06 | PN ---
Subjective Date of Service: 06/18/18 Interval History: No acute issues overnight. Patient does not have any complaints this morning, no chest pain, no shortness of breath, has coughing- but unchanged. Objective Active Medications: Acetaminophen (Tylenol Tab*) 650 mg PO Q4H PRN PRN Reason: FEVER/PAIN Last Admin: 06/15/18 21:50 Dose: 650 mg Aspirin (Aspirin 81 Mg Chew Tab*) 81 mg PO QAM [facility] Last Admin: 06/18/18 10:33 Dose: 81 mg Atorvastatin Calcium (Lipitor*) 40 mg PO DAILY [facility] Last Admin: 06/18/18 10:33 Dose: 40 mg Docusate Sodium (Colace Cap*) 100 mg PO BID PRN PRN Reason: CONSTIPATION Piperacillin Sod/Tazobactam (Sod 3.375 gm/ Sodium Chloride) 100 mls @ 25 mls/ hr IVPB Q8H [facility] Last Admin: 06/18/18 05:23 Dose: 25 mls/hr Losartan Potassium (Cozaar Tab*) 50 mg PO [facility] Last Admin: 06/18/18 10:33 Dose: 50 mg Magnesium Hydroxide (Milk Of [employer] Liq*) 30 ml PO Q4H PRN PRN Reason: CONSTIPATION Metoprolol Succinate (Toprol Xl Tab*) 25 mg PO DAILY [facility] Last Admin: 06/18/18 10:32 Dose: 25 mg Ondansetron HCl (Zofran Inj*) 4 mg IV Q4H PRN PRN Reason: NAUSEA/VOMITING Pantoprazole Sodium (Protonix Iv*) 40 mg IV Q24H [facility] Last Admin: 06/18/18 03:59 Dose: 40 mg Senna (Senokot Tab*) 1 tab PO BID PRN PRN Reason: CONSTIPATION Ticagrelor (Brilinta*) 90 mg PO BID [facility] Last Admin: 06/18/18 10:33 Dose: 90 mg Vital Signs - 8 hr 06/18/18 04:02 Temperature 98.6 F Pulse Rate 66 Respiratory 20 Rate Blood Pressure 159/63 (mmHg) O2 Sat by Pulse 96 Oximetry Oxygen Devices in Use Now: None Eyes: PERRLA Respiratory: Clear to Auscultation Cardiovascular: RRR, - - trace lower extremity edema bilaterally. Abdominal: NL Sounds; No Tenderness; No Distention Skin: No Rash or Ulcers Neurological: Alert and Oriented x 3 Result Diagrams: 06/18/18 05:44 06/18/18 05:44 Microbiology and Other Data: Microbiology 06/12/18 06:26 Legionella Urinary Antigen - Final Urine Negative Legionella Antigen Streptococcus pneumoniae Ag Screen - Final Negative S. pneumo Antigen 06/12/18 03:30 Nasal Screen MRSA (PCR) - Final Nasal Mrsa Not Detected 06/11/18 23:29 Influenza Types A,B Antigen - Final Nasopharyngeal Specimen received for Influenza A/B Molecular testing Assess/Plan/Problems-Billing Assessment: 88 year old Male with history of atrial fibrillation, CVA, Cardiomyopathy, CLL, malignant melanoma here with pneumonia, demand ischemia. - Patient Problems (1) Leukocytosis Current Visit: Yes Status: Acute Code(s): D72.829 - ELEVATED WHITE BLOOD CELL COUNT, UNSPECIFIED SNOMED Code(s): 660442853 Comment: Due to CLL. Patient does not appear toxic. no fever. (2) Pneumonia Current Visit: Yes Status: Acute Code(s): J18.9 - PNEUMONIA, UNSPECIFIED ORGANISM SNOMED Code(s): 107990375 Comment: Continue zosyn, continues to improve slowly. No SOB, on Room air. (3) Elevated troponin Current Visit: Yes Status: Acute Code(s): R74.8 - ABNORMAL LEVELS OF OTHER SERUM ENZYMES SNOMED Code(s): 299988461 Comment: Likely demand ischemia. Cardiology on board. Continue aspirin, also patient takes brilinta. Toprol 25mg XL started 06/16/18. (4) History of CVA (cerebrovascular accident) Current Visit: Yes Status: Acute Code(s): Z86.73 - PRSNL HX OF TIA (TIA), AND CEREB INFRC W/O RESID DEFICITS SNOMED Code(s): 648203057 Comment: Recent carotid stenting 02/2018. Continue ASA, ticagrelor, statin. May be at his baseline. (5) Atrial fibrillation Current Visit: No Status: Acute Code(s): I48.91 - UNSPECIFIED ATRIAL FIBRILLATION SNOMED Code(s): 89937691 Comment: - S/p Watcham procedure - Aspirin, Brilinta. Today: 06/16/18: starting toprol 25mg XL. (6) Cardiomyopathy Current Visit: No Status: Acute Code(s): I42.9 - CARDIOMYOPATHY, UNSPECIFIED SNOMED Code(s): 07077713 Comment: Not new although precise prior LVEF not known to me. Continue losartan and toprol. Hx CABG, stents, Watchman device. PPM (??ICD). (7) Anemia Current Visit: Yes Status: Acute Code(s): D64.9 - ANEMIA, UNSPECIFIED SNOMED Code(s): 041479260 Comment: Hb stable. will monitor for s/s of bleeding. (8) DNR (do not resuscitate) Current Visit: Yes Status: Acute Status and Disposition: Family meeting today to determine discharge planning and possible of hospice.
[2018-06-19] MEDS: Pantoprazole IV* 40 MG IV SCH (03:27)
[2018-06-19] MEDS: Piperacillin/Tazobac ADVAN(*) 3.375 GM in NS 0.9% 100 ML* 100 ML IVPB SCH ×3 (05:27→21:46)
[2018-06-19 07:13] LABS: BUN/Creatinine Ratio 20.5 (8-20); Calcium 8.6 mg/dL (8.6-10.3); EGFR Non-African American 87.6 (>60); Magnesium 1.8 mg/dL (1.9-2.7); Potassium 4.4 mmol/L (3.5-5.0)
[2018-06-19] MEDS: Aspirin 81 mg CHEW TAB* 81 MG TAB.CHEW PO SCH (09:02)
[2018-06-19] MEDS: Atorvastatin* 40 MG TAB PO SCH (09:02)
[2018-06-19] MEDS: Losartan TAB* 25 MG PO SCH (09:02)
[2018-06-19] MEDS: Ticagrelor* 90 MG TAB PO SCH ×2 (09:02→19:45)
--- NOTE | 2018-06-19 12:06 | PN ---
Subjective Date of Service: 06/19/18 Interval History: [place] decided for home hospice Today patient feels okay, has no complaints. Objective Active Medications: Acetaminophen (Tylenol Tab*) 650 mg PO Q4H PRN PRN Reason: FEVER/PAIN Last Admin: 06/15/18 21:50 Dose: 650 mg Aspirin (Aspirin 81 Mg Chew Tab*) 81 mg PO QAM [facility] Last Admin: 06/19/18 09:02 Dose: 81 mg Atorvastatin Calcium (Lipitor*) 40 mg PO DAILY [facility] Last Admin: 06/19/18 09:02 Dose: 40 mg Docusate Sodium (Colace Cap*) 100 mg PO BID PRN PRN Reason: CONSTIPATION Piperacillin Sod/Tazobactam (Sod 3.375 gm/ Sodium Chloride) 100 mls @ 25 mls/ hr IVPB Q8H [facility] Last Admin: 06/19/18 05:27 Dose: 25 mls/hr Losartan Potassium (Cozaar Tab*) 50 mg PO [facility] Last Admin: 06/19/18 09:02 Dose: 50 mg Magnesium Hydroxide (Milk Of Magnkae Liq*) 30 ml PO Q4H PRN PRN Reason: CONSTIPATION Ondansetron HCl (Zofran Inj*) 4 mg IV Q4H PRN PRN Reason: NAUSEA/VOMITING Pantoprazole Sodium (Protonix Iv*) 40 mg IV Q24H [facility] Last Admin: 06/19/18 03:27 Dose: 40 mg Senna (Senokot Tab*) 1 tab PO BID PRN PRN Reason: CONSTIPATION Ticagrelor (Brilinta*) 90 mg PO BID [facility] Last Admin: 06/19/18 09:02 Dose: 90 mg Vital Signs - 8 hr 06/19/18 06/19/18 06/19/18 08:00 08:08 08:10 Temperature 98.6 F Pulse Rate 73 73 Respiratory 16 18 Rate Blood Pressure 153/72 (mmHg) O2 Sat by Pulse 97 96 Oximetry Oxygen Devices in Use Now: None Appearance: Lying in bed, Not in distress Eyes: PERRLA Respiratory: Clear to Auscultation Cardiovascular: RRR Neurological: - - aphasic, alert/oriented X person Result Diagrams: 06/18/18 05:44 06/19/18 06:18 Microbiology and Other Data: Microbiology 06/12/18 06:26 Legionella Urinary Antigen - Final Urine Negative Legionella Antigen Streptococcus pneumoniae Ag Screen - Final Negative S. pneumo Antigen 06/12/18 03:30 Nasal Screen MRSA (PCR) - Final Nasal [place]sa Not Detected 06/11/18 23:29 Influenza Types A,B Antigen - Final Nasopharyngeal Specimen received for Influenza A/B Molecular testing Assess/Plan/Problems-Billing Assessment: 88 year old Male with history of atrial fibrillation, CVA, Cardiomyopathy, CLL, malignant melanoma here with pneumonia, demand ischemia. - Patient Problems (1) Leukocytosis Current Visit: Yes Status: Acute Code(s): D72.829 - ELEVATED WHITE BLOOD CELL COUNT, UNSPECIFIED SNOMED Code(s): 966444381 Comment: Due to CLL. Patient does not appear toxic. no fever. (2) Pneumonia Current Visit: Yes Status: Acute Code(s): J18.9 - PNEUMONIA, UNSPECIFIED ORGANISM SNOMED Code(s): 229511495 Comment: Continue zosyn, continues to improve slowly. No SOB, on Room air. (3) Elevated troponin Current Visit: Yes Status: Acute Code(s): R74.8 - ABNORMAL LEVELS OF OTHER SERUM ENZYMES SNOMED Code(s): 282922971 Comment: Likely demand ischemia. Cardiology on board. Continue aspirin, also patient takes brilinta. Toprol 25mg XL started 06/16/18. (4) History of CVA (cerebrovascular accident) Current Visit: Yes Status: Acute Code(s): Z86.73 - PRSNL HX OF TIA (TIA), AND CEREB INFRC W/O RESID DEFICITS SNOMED Code(s): 628571786 Comment: Recent carotid stenting 02/2018. Continue ASA, ticagrelor, statin. May be at his baseline. (5) Atrial fibrillation Current Visit: No Status: Acute Code(s): I48.91 - UNSPECIFIED ATRIAL FIBRILLATION SNOMED Code(s): 75977079 Comment: - S/p Watcham procedure - Aspirin, Brilinta. metoprolol was discontinued because of bradycardia yesterday afternoon. (6) Cardiomyopathy Current Visit: No Status: Acute Code(s): I42.9 - CARDIOMYOPATHY, UNSPECIFIED SNOMED Code(s): 28005153 Comment: Not new although precise prior LVEF not known to me. Continue losartan and toprol. Hx CABG, stents, Watchman device. PPM (??ICD). (7) Anemia Current Visit: Yes Status: Acute Code(s): D64.9 - ANEMIA, UNSPECIFIED SNOMED Code(s): 905994779 Comment: Hb stable. will monitor for s/s of bleeding. (8) DNR (do not resuscitate) Current Visit: Yes Status: Acute Status and Disposition: plan for discharge w/ home hospice. likely tomorrow.
[2018-06-20] MEDS: Pantoprazole IV* 40 MG IV SCH (03:07)
[2018-06-20] MEDS: Piperacillin/Tazobac ADVAN(*) 3.375 GM in NS 0.9% 100 ML* 100 ML IVPB SCH (05:51)
--- NOTE | 2018-06-20 08:37 | PN ---
Subjective Date of Service: 06/20/18 Interval History: Hospital bed to be delivered today. no acute issues overnight. no shortness of breath, no palpitations. Objective Active Medications: Acetaminophen (Tylenol Tab*) 650 mg PO Q4H PRN PRN Reason: FEVER/PAIN Last Admin: 06/15/18 21:50 Dose: 650 mg Aspirin (Aspirin 81 Mg Chew Tab*) 81 mg PO QAM [facility] Last Admin: 06/19/18 09:02 Dose: 81 mg Atorvastatin Calcium (Lipitor*) 40 mg PO DAILY [facility] Last Admin: 06/19/18 09:02 Dose: 40 mg Docusate Sodium (Colace Cap*) 100 mg PO BID PRN PRN Reason: CONSTIPATION Piperacillin Sod/Tazobactam (Sod 3.375 gm/ Sodium Chloride) 100 mls @ 25 mls/ hr IVPB Q8H [facility] Last Admin: 06/20/18 05:51 Dose: 25 mls/hr Losartan Potassium (Cozaar Tab*) 50 mg PO QAM [facility] Last Admin: 06/19/18 09:02 Dose: 50 mg Magnesium Hydroxide (Milk Of [employer] Liq*) 30 ml PO Q4H PRN PRN Reason: CONSTIPATION Ondansetron HCl (Zofran Inj*) 4 mg IV Q4H PRN PRN Reason: NAUSEA/VOMITING Pantoprazole Sodium (Protonix Iv*) 40 mg IV Q24H [facility] Last Admin: 06/20/18 03:07 Dose: 40 mg Senna (Senokot Tab*) 1 tab PO BID PRN PRN Reason: CONSTIPATION Ticagrelor (Brilinta*) 90 mg PO BID [facility] Last Admin: 06/19/18 19:45 Dose: 90 mg Vital Signs - 8 hr 06/20/18 03:35 Temperature 97.8 F Pulse Rate 80 Respiratory 24 Rate Blood Pressure 145/61 (mmHg) O2 Sat by Pulse 94 Oximetry Oxygen Devices in Use Now: None Appearance: Sitting on chair, not in distress. Ears/Nose/Mouth/Throat: Mucous Membranes Moist Neck: Trachea Midline Respiratory: Clear to Auscultation Cardiovascular: RRR, - - soft systolic murmur best heard at the apex. Neurological: Alert and Oriented x 3, - - aphasia Result Diagrams: 06/18/18 05:44 06/19/18 06:18 Microbiology and Other Data: Microbiology 06/12/18 06:26 Legionella Urinary Antigen - Final Urine Negative Legionella Antigen Streptococcus pneumoniae Ag Screen - Final Negative S. pneumo Antigen 06/12/18 03:30 Nasal Screen MRSA (PCR) - Final Nasal Mrsa Not Detected 06/11/18 23:29 Influenza Types A,B Antigen - Final Nasopharyngeal Specimen received for Influenza A/B Molecular testing Assess/Plan/Problems-Billing Assessment: 88 year old Male with history of atrial fibrillation, CVA, Cardiomyopathy, CLL, malignant melanoma here with pneumonia, demand ischemia. - Patient Problems (1) Leukocytosis Current Visit: Yes Status: Acute Code(s): D72.829 - ELEVATED WHITE BLOOD CELL COUNT, UNSPECIFIED SNOMED Code(s): 222843362 Comment: Due to CLL. Patient does not appear toxic. no fever. (2) Pneumonia Current Visit: Yes Status: Acute Code(s): J18.9 - PNEUMONIA, UNSPECIFIED ORGANISM SNOMED Code(s): 592738858 Comment: Continue zosyn, continues to improve slowly. No SOB, on Room air. finished course of zosyn in the hospital, will not go home on antibiotics. (3) Elevated troponin Current Visit: Yes Status: Acute Code(s): R74.8 - ABNORMAL LEVELS OF OTHER SERUM ENZYMES SNOMED Code(s): 101998997 Comment: Likely demand ischemia. Cardiology on board. Continue aspirin, also patient takes brilinta. toprol was started but then d/c'ed due to bradycardia (4) History of CVA (cerebrovascular accident) Current Visit: Yes Status: Acute Code(s): Z86.73 - PRSNL HX OF TIA (TIA), AND CEREB INFRC W/O RESID DEFICITS SNOMED Code(s): 207751199 Comment: Recent carotid stenting 02/2018. Continue ASA, ticagrelor, statin. May be at his baseline. (5) Atrial fibrillation Current Visit: No Status: Acute Code(s): I48.91 - UNSPECIFIED ATRIAL FIBRILLATION SNOMED Code(s): 88012862 Comment: - S/p Watcham procedure - Aspirin, Brilinta. metoprolol was discontinued because of bradycardia (6) Cardiomyopathy Current Visit: No Status: Acute Code(s): I42.9 - CARDIOMYOPATHY, UNSPECIFIED SNOMED Code(s): 74803960 Comment: Not new although precise prior LVEF not known to me. Continue losartan and toprol. Hx CABG, stents, Watchman device. PPM (??ICD). (7) Anemia Current Visit: Yes Status: Acute Code(s): D64.9 - ANEMIA, UNSPECIFIED SNOMED Code(s): 999425320 Comment: Hb stable. (8) DNR (do not resuscitate) Current Visit: Yes Status: Acute Status and Disposition: plan for discharge w/ home hospice.
[2018-06-20] MEDS: Atorvastatin* 40 MG TAB PO SCH (09:09)
[2018-06-20] MEDS: Aspirin 81 mg CHEW TAB* 81 MG TAB.CHEW PO SCH (09:09)
[2018-06-20] MEDS: Losartan TAB* 25 MG PO SCH (09:09)
[2018-06-20] MEDS: Ticagrelor* 90 MG TAB PO SCH (09:10)
[2018-06-20 12:46] VITALS: BP 137/73
--- NOTE | 2018-06-20 18:02 | DS ---
CC: Dr. Markos Woods; hospice physician DISCHARGE SUMMARY: DATE OF ADMISSION: 06/12/18 DATE OF DISCHARGE: 06/20/18 PRIMARY CARE PROVIDER: Dr. Markos Woods. REASON FOR ADMISSION: Altered mental status, hematemesis versus hemoptysis. HOSPITAL COURSE: This is an 88-year-old male with past medical history of coronary artery disease, CLL, chemotherapy-induced peripheral neuropathy, carotid artery stent placement, who was brought into the hospital because of weakness, altered mental status as well as vomiting blood. The patient was found to have altered mental status with suspicion of pneumonia, hematemesis was attributed to possibly Griselda-Muir tear, and the patient was also found to have elevated troponin attributed to demand ischemia. The patient was placed in the Intensive Care Unit with IV fluids, IV antibiotics, with Zosyn, the patient was ordered for an echocardiogram which showed ejection fraction of 25% to 30% with hypokinesis. The patient was started on his home medications. The patient continued to improve with respect to his pneumonia and his mentation and was subsequently moved out of the ICU. Family meeting was held. His family decided that the patient would benefit from hospice care and subsequently palliative care/hospice consult was called and the patient was accepted to home hospice. The patient did have some physical therapy as well as occupational therapy while in the hospital. Also, the patient also had a swallowing study done in which patient tolerated regular diet consistency. The patient also has lower partial dentures. The patient was seen by Physical Therapy as well. With the case management help, we were able to coordinate our home hospice care , we were able to get hospital bed delivered to his home as well. DISCHARGE MEDICATIONS: Include: 1. Aspirin 81 mg daily. 2. Atorvastatin 40 mg daily. 3. Losartan 50 mg daily. 4. Ticagrelor 90 mg b.i.d. 5. Pantoprazole 40 mg daily. It should be noted that through the hospital course, we attempted to start the patient on a beta-graeme, metoprolol 25 mg XL was started, and subsequently we noted that the patient was having some bradycardia, so we discontinued the metoprolol. DISCHARGE CONDITION: Fair. DISCHARGE DIAGNOSES: 1. Hospital-acquired pneumonia. 2. Chronic lymphocytic leukemia. 3. Coronary artery disease. 4. 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 5. Hospice status. [id number]/[facility] #: [id number] JERAD
== END 2018-06-20 13:30 | disposition hospice, home (50) | DRG 368 ==
LOC: ED 22:31 → ICU 06-12 02:30 → MEDTELE 06-16 22:07
PROVIDERS: ADMIT Pediatrics; ATTEND Internal Medicine
DX: K22.6 Gastro-esophageal laceration-hemorrhage syndrome (principal); J18.9 Pneumonia, unspecified organism; C91.10 Chronic lymphocytic leukemia of B-cell type not having achieved remission; I42.9 Cardiomyopathy, unspecified; I24.8 Other forms of acute ischemic heart disease; K92.0 Hematemesis; I11.0 Hypertensive heart disease with heart failure; G62.0 Drug-induced polyneuropathy; I48.91 Unspecified atrial fibrillation; I27.20 Pulmonary hypertension, unspecified; I50.9 Heart failure, unspecified; D64.9 Anemia, unspecified; I69.320 Aphasia following cerebral infarction; Z95.1 Presence of aortocoronary bypass graft; R74.8 Abnormal levels of other serum enzymes; Y95 Nosocomial condition; I08.2 Rheumatic disorders of both aortic and tricuspid valves; Z66 Do not resuscitate; I25.10 Atherosclerotic heart disease of native coronary artery without angina pectoris; E78.5 Hyperlipidemia, unspecified; T45.1X5D Adverse effect of antineoplastic and immunosuppressive drugs, subsequent encounter; Z79.82 Long term (current) use of aspirin; Z79.899 Other long term (current) drug therapy; Z88.8 Allergy status to other drugs, medicaments and biological substances; Z85.820 Personal history of malignant melanoma of skin
CPT/HCPCS: 36415; 71046; 80048; 80053; 80061; 81003; 81015; 83605; 83735; 83880; 84484; 85025; 85027; 85060; 85610; 85730; 86140; 86850; 86900; 86901; 87040; 87086; 87641; 87899; 93005; 93306; 99285; A9270-GY; G8978-GP-CJ; G8979-GP-CH; G8987-GO-CK; G8988-GO-CI; J0692; J2405; J2543; J3370